=== PATIENT | female | born 1935 | race Caucasian/White ===

== ENCOUNTER 2022-02-19 20:25 | Inpatient (IN) | payer MEDICARE, OTHER ==
[~2022-02-19] VITALS: Ht 162.6 cm; Wt 59.0 kg
--- NOTE | 2022-02-19 19:15 | NUR ---
Pt received via stretcher from [facility]. Pt is having blood tranfusing which begin infusing at [facility] for a hgb of 6.8. Pt is on 3L oxygen. Pt denies sob and chest pain. Pt received Rocephin and Zithromax IV at [facility]. Pt transferred to bed.
--- NOTE | 2022-02-19 19:30 | NUR ---
Transfusion of 1 unit of prbc that was initiated and started at [facility] is completed without any s/s of complications.
[2022-02-19 19:33] VITALS: BP 129/69
[~2022-02-19 20:25] MED LIST: ACLI400A2 IH; ALPR0.5T6 PO; AMLO10TA4 PO; ARFO15VI NEB; BUDE0.5A NEB; CLON0.2T PO; ENAL20TA10 PO; HYDR12.575 PO; PARO20TA3 PO
[2022-02-19 20:30] VITALS: BP 105/62
--- NOTE | 2022-02-19 22:39 | NUR ---
Nurse notified MD regarding patients troponin of 2008. pt previous troponin from [facility] was 1679. Pt has no sob and no chest pain. N/O routine cardiology consult.
[2022-02-19 23:30] VITALS: BP 131/79
[2022-02-20] MEDS ORDERED: BUME1TAB3 PO (02:30)
[2022-02-20 02:32] LABS: BASO % 0 % (0-3); EOS # 0.3 x10^3/uL (0.0-0.7); EOS % 3 % (0-3); HEMOGLOBIN 7.8 g/dL (12.0-15.5); LYMPH # 1.2 x10^3/uL (1.0-4.8); LYMPH % 13 % (24-48); MEAN CORPUSCULAR HEMOGLOBIN 22 pg (25-35); MEAN CORPUSCULAR HGB CONC 31 g/dL (31-37); MEAN CORPUSCULAR VOLUME 70 fL (79-100); MONO # 0.8 x10^3/uL (0.0-1.1); MONO % 9 % (0-9); NEUT % 76 % (31-73); PLATELET COUNT 461 x10^3/uL (140-400); RED BLOOD COUNT 3.55 x10^6/uL (3.50-5.40); RED CELL DISTRIBUTION WIDTH 18.8 % (11.5-14.5); WHITE BLOOD COUNT 9.2 x10^3/uL (4.0-11.0)
[2022-02-20] MEDS ORDERED: DILT120T PO (02:34)
[2022-02-20] MEDS ORDERED: CITA20TA9 PO (02:36)
[2022-02-20] MEDS ORDERED: DOCU100C28 PO (02:42)
[2022-02-20] MEDS ORDERED: LOSA-73 PO (02:43)
[2022-02-20] MEDS ORDERED: BISA10SU55 RC (02:44)
[2022-02-20] MEDS ORDERED: MAGN400O7 PO (02:46)
[2022-02-20 02:50] LABS: ALBUMIN 2.7 g/dL (3.4-5.0); ALBUMIN/GLOBULIN RATIO 0.8 (1.0-1.7); CALCIUM 8.5 mg/dL (8.5-10.1); CREATININE 1.2 mg/dL (0.6-1.0); GFR 42.8; POTASSIUM 4.4 mmol/L (3.5-5.1); TOTAL BILIRUBIN 0.4 mg/dL (0.2-1.0); TOTAL PROTEIN 5.9 g/dL (6.4-8.2)
[2022-02-20] MEDS ORDERED: POTA10TA12 PO (02:52)
[2022-02-20] MEDS ORDERED: OMEP40CA7 PO (02:54)
[2022-02-20] MEDS ORDERED: FERR240T11 PO (03:05)
[2022-02-20 03:06] LABS: ANISOCYTOSIS SLIGHT; HYPOCHROMIA MOD; MICROCYTOSIS MOD; PLT ESTIMATE ADEQUATE (ADEQUATE)
[2022-02-20 03:30] VITALS: BP 152/85
[2022-02-20] MEDS ORDERED: PRED20TA PO (06:42)
[2022-02-20] MEDS ORDERED: MAGNESIUM HYDROXIDE 2,400 MG/30 ML ORAL.SUSP. PO PRN (06:45)
[2022-02-20] MEDS ORDERED: BISACODYL 10 MG SUPP.RECT. RC PRN (06:45)
[2022-02-20] MEDS ORDERED: BUDESONIDE 0.5 MG/2 ML NEBU. NEB PRN (06:45)
[2022-02-20 07:00] VITALS: BP 140/86
[2022-02-20] MEDS ORDERED: BUDESONIDE 0.5 MG/2 ML NEBU. NEB SCH (08:00)
[2022-02-20] MEDS: DOCUSATE SODIUM 100 MG CAPSULE. PO SCH ×2 (08:06→21:01)
[2022-02-20] MEDS: POTASSIUM CHLORIDE 10 MEQ TABLET.ER. PO SCH ×2 (08:06→21:01)
[2022-02-20] MEDS: FERROUS SULFATE 325 MG TABLET. PO SCH (08:06)
[2022-02-20] MEDS: PANTOPRAZOLE 40 MG TABLET.DR. PO SCH (08:06)
[2022-02-20] MEDS: CITALOPRAM 20 MG TABLET. PO SCH (08:06)
[2022-02-20] MEDS: BUMETANIDE 1 MG TABLET. PO SCH (08:07)
[2022-02-20] MEDS: predniSONE 20 MG TABLET PO SCH (08:07)
[2022-02-20] MEDS: LOSARTAN POTASSIUM 50 MG TABLET. PO SCH (08:08)
[2022-02-20] MEDS ORDERED: DIGOXIN IV 500 MCG/2 ML AMPUL. IV ONE ×2 (09:00→11:15)
[2022-02-20] MEDS ORDERED: MAGNESIUM HYDROXIDE 2,400 MG/30 ML ORAL.SUSP. PO SCH (09:00)
[2022-02-20] MEDS ORDERED: BISACODYL 10 MG SUPP.RECT. RC SCH (09:00)
[2022-02-20] MEDS ORDERED: ALPRAZolam 0.5 MG TABLET PO SCH (09:00)
[2022-02-20] MEDS: AZITHROMYCIN 250 MG TABLET. PO SCH (10:24)
[2022-02-20] MEDS: cefTRIAXone IV Push 1 GM VIAL. IVP SCH (10:24)
--- NOTE | 2022-02-20 10:35 | PN ---
DATE: 02/20/2022 SUBJECTIVE: The patient is an 86-year-old female patient who was seen at the Emergency Room of [facility] with a complaint of worsening shortness of breath. She was found to be anemic with a hemoglobin of 6.8. Furthermore, her troponin was markedly elevated and has left lower lobe infiltrate. She was started on IV ceftriaxone and Zithromax and she has had 1 unit of packed RBCs. When I saw her this morning, she was resting slightly propped up in bed, in no apparent respiratory distress. She continued to complain of shortness of breath, but again denied any chest pain. Denied any cough, phlegm or hemoptysis. PHYSICAL EXAMINATION: GENERAL: When I examined her this morning, she was pale, not jaundiced or cyanosed, no lymphadenopathy, no thyromegaly, no jugular venous distention. Mild bilateral lower limb edema. VITAL SIGNS: Her heart rate was 92, blood pressure was 140/86, temperature was 97.7, respiratory rate 22, and oxygen saturation was 96% on 3 liters of oxygen. HEAD, EYES, EARS, NOSE, AND THROAT: Normocephalic, atraumatic. NECK: Supple. HEART: Showed normal first and second heart sounds. No gallop or murmur. CHEST: Clear to auscultation. No crepitation or rhonchi. ABDOMEN: Distended, soft, nontender. NEUROLOGIC: She was grossly intact. LABORATORY DATA: This morning showed a white cell count of 9.2, hemoglobin 7.8, hematocrit 25, MCV 70 and platelet count of 161,000 with normal manual differential. Her chemistry showed she has 2 more sets of troponin I high sensitivity that were 2008 and 2160. Her serum sodium was 133, potassium 4.4, chloride 99, bicarbonate 32, anion gap of 2, BUN 27, creatinine 1.2. Estimated GFR was 42 mL per minute. Her glucose was 84, calcium was 8.5. Total bilirubin, AST, ALT, alkaline phosphatase were normal. Her total protein 5.9, albumin 3.7. ASSESSMENT: 1. In summary, this is an 86-year-old female patient who was admitted with anemia. Her hemoglobin and hematocrit at [facility] Emergency Room were 6.8 and 23. She did receive 1 unit of packed RBCs and her H and H has risen to 7.8 and 25. 2. Non-ST segment elevation myocardial infarction. Her initial troponin at [facility] were 1679, second one was 1481, third was 2009 and fourth was 2161; however, her EKG showed that she was in atrial fibrillation with no ST segment elevation. The patient was also treated for left lower lobe pneumonia. She has multiple other medical problems including: A. Chronic obstructive pulmonary disease. B. Chronic hypoxic respiratory failure, on 3 liters of oxygen. C. Chronic diastolic congestive heart failure. D. Pulmonary hypertension. E. Paroxysmal atrial fibrillation. F. Oropharyngeal dysphagia. PLAN: My plan is to continue with IV antibiotic in the form of ceftriaxone and Zithromax. We will continue with reconciled all her medications and we have consulted the chaplain. Her troponin I high sensitivity is steadily rising, although the patient is chest pain free. BRIGITTE DR: Cami TID: [id number]
--- NOTE | 2022-02-20 10:50 | HP ---
DATE OF SERVICE: 02/20/2022 ADMIT DATE: 02/19/2022 HISTORY OF PRESENT ILLNESS: The patient is an 86-year-old female patient who presented to the Emergency Room of [facility] with worsening shortness of breath that has been going on for the last several days. The patient is known to have history of congestive heart failure and peripheral edema. The patient thinks that her swelling of the legs has worsened, although she is on diuretics. She is normally on 3 liters of oxygen by nasal cannula; however, requirement has increased to 4 liters. When she arrived to the Emergency Room, she denied any cough, phlegm or hemoptysis. Denied any chills, rigors or fever. She denied specifically chest pain. The patient was extensively investigated in the Emergency Room and has had lab work and imaging studies. Her lab work was remarkable for anemia with a hemoglobin of 6.8, hematocrit 23. Her chemistry was remarkable for markedly elevated beta natriuretic peptide 3492. Her troponin I high sensitivity was 1679 and therefore, the patient was transferred. She has received 1 unit of packed RBCs and was transferred to [facility] for further evaluation and treatment. Of note, the patient was on hospice and has not been seen by any doctor for the last year. PAST MEDICAL HISTORY: Significant for chronic obstructive pulmonary disease, chronic hypoxic respiratory failure for which she is normally on 3 liters of oxygen by nasal cannula. She has also chronic diastolic congestive heart failure, pulmonary hypertension, paroxysmal atrial fibrillation, oropharyngeal dysphagia, hypertensive heart disease, anxiety disorder, and dependence on supplemental oxygen. PAST SURGICAL HISTORY: Unremarkable. ALLERGIES: She has no known drug allergies. MEDICATIONS: She is currently on the following medications: She is on diltiazem hydrochloride extended release 120 mg once a day, losartan potassium 50 mg once a day, aspirin 81 mg once a day, citalopram hydrobromide 10 mg once a day, alprazolam 0.5 mg twice a day, potassium chloride 10 mEq twice a day, bumetanide 1 mg daily, Pulmicort 0.25 mg in 2 mL by nebulizer twice a day, bisacodyl 10 mg rectally daily p.r.n. for constipation, Colace 100 mg twice a day, magnesium hydroxide for milk of magnesia 30 mL p.o. daily p.r.n. for constipation, ondansetron 4 mg every 6 hours as needed, omeprazole 20 mg once a day, multivitamin with mineral 1 tablet once a day. FAMILY HISTORY: Noncontributory. SOCIAL HISTORY: She lives actually with her son; however, one of her daughters is DPOA. She does not smoke, drink alcohol or recreational drugs. She has 2 daughters and 1 son. One of her daughters is a DPOA. REVIEW OF SYSTEMS: The patient denied any blurring of vision, cataracts, glaucoma or macular degeneration. Denied any earache, tinnitus or sensory deafness. Denied any nosebleed, stuffy nose or postnasal drip. Denied any sore throat, sore tongue, toothache, hoarseness of voice or difficulty swallowing. She denied any nausea, vomiting, diarrhea or constipation. Denied any hematemesis, melena or hematochezia. Denied any dysuria, frequency or hematuria. She denied any chest pain. Did complain of shortness of breath. Denied any orthopnea or paroxysmal nocturnal dyspnea. Did complain of swelling of both lower extremities. PHYSICAL EXAMINATION: GENERAL: On arrival to the Emergency Room of [facility], the patient was pale, not jaundiced, cyanosed, no lymphadenopathy, no thyromegaly, no jugular venous distention. No lower limb edema. VITAL SIGNS: Her heart rate was 90, irregularly irregular, blood pressure was 128/82, temperature was 98.6, respiratory rate was 18 and oxygen saturation was 96% on 3 liters of oxygen. HEAD, EYES, EARS, NOSE, AND THROAT: Normocephalic, atraumatic. NECK: Supple. HEART: Normal first and second heart sounds. No gallop, rub or murmur. CHEST: Shows central trachea, equally reduced expansion. Air entry, vesicular breath sounds. I could not really appreciate any crepitation or rhonchi. ABDOMEN: Distended, soft, nontender. NEUROLOGIC: She is somewhat confused, but otherwise all her cranial nerves are intact. She moves extremities without difficulty. LABORATORY DATA: Showed a serum sodium 138, potassium 4.7, chloride 100, bicarbonate 37, anion gap of 1, BUN 27, creatinine 1, estimated GFR was 52 mL per minute. Her glucose was 107. Her calcium was 9. Total bilirubin, AST, ALT, alkaline phosphatase were normal. Her first set of troponin I high sensitivity was 1679. Beta natriuretic peptide was 3492. Total protein 5.7, albumin 3. She did have a chest x-ray, which basically showed that she has small bilateral pleural effusion, patchy left basilar opacity, may represent atelectasis or consolidation. ASSESSMENT AND PLAN: The patient was treated with IV ceftriaxone as well as Zithromax and was transferred to [facility] with a plan to continue with IV antibiotic type and cross and transfuse 1 unit of packed RBCs. Continue with all other medication and consult the pipe coverer. Of note, the patient is not on any nonsteroidal anti-inflammatory medications or any blood thinner. MCKAY DR: Cami TID: [id number]
[2022-02-20 11:00] VITALS: BP 152/69
[2022-02-20] MEDS: ALPRAZolam 0.5 MG TABLET PO PRN (11:03)
--- NOTE | 2022-02-20 12:04 | EKG ---
[facility] [address] [place] [address] Test Date: 2022-02-20 Test Time: 11:57:54 Pat Name: KATHERINE VIZCARRA Department: Room: 4 1 Gender: F Slate Roofer: : 1935 Requested By: AHMET PHAN Order Number: [id number] Reading MD: Shawn Sheikh Measurements Intervals [place] Rate: 105 P: AK: QRS: 46 QRSD: 76 T: 3 QT: 276 QTc: 368 Interpretive Statements ATRIAL FIBRILLATION VENTRICULAR PREMATURE COMPLEX(ES) MILD NON SPECIFIC ST CHANGES Electronically Signed On 02-24-2022 17:38:29 CDT by Shawn Sheikh
[2022-02-20 15:00] VITALS: BP 147/71
--- NOTE | 2022-02-20 15:56 | PDOC2 ---
CONSULT Date of Consult Date of Consult DATE: 02/20/22 TIME: 15:49 Reason for Consult Reason for Consult: Non-ST elevated myocardial infarction Referring Physician Referring Physician: Dr. Smith Identification/Chief Complaint Chief Complaint Shortness of breath Source Source: Chart review, Patient History of Present Illness Reason for Visit: The patient is an 86-year-old female who presented to the [place] emergency room with increasing shortness of breath over 2 to 3 days. She has an extensive medical history including heart failure, COPD with home oxygen and paroxysmal atrial fibrillation. Significant lab findings included an elevated troponin at 1679, a hemoglobin of 6.8 and a BNP of 3492. Patient's EKG showed no findings of an acute infarction. Chest x-ray showed left-sided pneumonia. She was treated with 1 unit of packed RBCs and has been transferred to [place] for further evaluation and treatment. Of note she was not placed on any anticoagulation secondary to her significant anemia. This morning she reports feeling better. She continues to have some shortness of breath. She denies any chest pain. Past Medical History Cardiovascular: AFIB, CHF, HTN, Pulmonary hypertension Pulmonary: COPD, Pneumonia Past Surgical History Past Surgical History: No pertinent history Family History Family History: Other Social History No ALCOHOL: none Current Medications Current Medications Current Medications Alprazolam (Xanax) 0.5 mg BID PO ; Start 02/20/22 at 09:00; Stop 02/20/22 at 06:47; Status DC Bisacodyl (Dulcolax Supp) 10 mg DAILY RC ; Start 02/20/22 at 09:00; Stop 02/20/22 at 06:47; Status DC Budesonide (Pulmicort) 0.25 mg RTBID NEB ; Start 02/20/22 at 08:00; Stop 02/20/22 at 06:47; Status DC Bumetanide (Bumex) 0.5 mg DAILY PO Last administered on 02/20/22at 08:07; Start 02/20/22 at 09:00 Citalopram Hydrobromide (CeleXA) 20 mg DAILY PO Last administered on 02/20/22at 08:06; Start 02/20/22 at 09:00 Docusate Sodium (Colace) 100 mg BID PO Last administered on 02/20/22at 08:06; Start 02/20/22 at 09:00 Losartan Potassium (Cozaar) 50 mg DAILY PO Last administered on 02/20/22 08:08 ; Start 02/20/22 at 09:00 Magnesium Hydroxide (Milk Of Magnesia) 400 mg BID PO ; Start 02/20/22 at 09:00; Stop 02/20/22 at 06:47; Status DC Potassium Chloride (Klor-Con) 10 meq BID PO Last administered on 02/20/22at 08:06; Start 02/20/22 at 09:00 Diltiazem HCl (Cardizem 24hr Cd) 120 mg DAILY PO Last administered on 02/20/22at 08:06; Start 02/20/22 at 09:00 Ferrous Sulfate (Feosol) 325 mg DAILYWBKFT PO Last administered on 02/20/22at 08:06; Start 02/20/22 at 08:00 Pantoprazole Sodium (Protonix) 40 mg DAILYAC PO Last administered on 02/20/22 08:06; Start 02/20/22 at 07:30 Prednisone (Prednisone) 20 mg DAILY PO Last administered on 02/20/22at 08:07; Start 02/20/22 at 09:00 Alprazolam (Xanax) 0.5 mg PRN BID PRN PO ANXIETY / AGITATION Last administered on 02/20/22at 11:03; Start 02/20/22 at 06:45 Bisacodyl (Dulcolax Supp) 10 mg PRN DAILY PRN RC BLADDER SPASM; Start 02/20/22 at 06:45 Budesonide (Pulmicort) 0.25 mg PRN BID PRN NEB ANXIETY / AGITATION; Start 02/20/22 at 06:45 Magnesium Hydroxide (Milk Of Magnesia) 400 mg PRN BID PRN PO CONSTIPATION; Start 02/20/22 at 06:45 Digoxin (Lanoxin) 250 mcg 1X ONCE IV Last administered on 02/20/22at 08:57; Start 02/20/22 at 09:00; Stop 02/20/22 at 09:02; Status DC Ceftriaxone Sodium (Rocephin) 1 gm DAILY IVP Last administered on 02/20/22at 10:24; Start 02/20/22 at 10:00 Azithromycin (Zithromax) 250 mg DAILY PO Last administered on 02/20/22at 10:24; Start 02/20/22 at 10:00; Stop 02/23/22 at 09:01 Digoxin (Lanoxin) 250 mcg 1X ONCE IV Last administered on 02/20/22at 11:22; Start 02/20/22 at 11:15; Stop 02/20/22 at 11:16; Status DC Lactobacillus Rhamnosus (Culturelle) 1 cap BID PO ; Start 02/20/22 at 21:00 Active Scripts Active Reported Prednisone 20 Mg Tablet 1 Tab PO DAILY Iron (Ferrous Gluconate) 240 Mg Tablet 1 Tab PO DAILY 30 Days Omeprazole 40 Mg Capsule.dr 40 Mg PO DAILY Klor-Con 10 (Potassium Chloride) 10 Meq Tablet.er 10 Meq PO BID Milk Of Magnesia (Magnesium Hydroxide) 400 Mg/5 Ml Oral.susp 400 Mg PO BID PRN Dulcolax (Bisacodyl) 10 Mg Supp.rect 1 Supp RC DAILY Losartan Potassium 50 Mg Tablet 50 Mg PO DAILY Docusate Sodium 100 Mg Capsule 100 Mg PO BID Celexa (Citalopram Hydrobromide) 20 Mg Tablet 1 Tab PO DAILY Cardizem La (Diltiazem Hcl) 120 Mg Tab.er.24h 120 Mg PO DAILY Bumetanide 1 Mg Tablet 0.5 Tab PO DAILY Budesonide 0.5 Mg/2 Ml Ampul.neb 1 Vial NEB BID PRN Alprazolam 0.5 Mg Tablet 1 Tab PO BID PRN Allergies Allergies: Coded Allergies: No Known Drug Allergies (Unverified , 12/05/14) ROS General: YES: Fatigue Respiratory: YES: Shortness of breath, SOB with excertion Physical Exam General: mild distress Lungs: Other (Mildly decreased breath sounds) Heart: Other (Irregularly irregular) Abdomen: Normal bowel sounds Vitals VITALS Vital Signs Date Time Temp Pulse Resp B/P (MAP) Pulse Ox O2 Delivery O2 Flow Rate FiO2 02/20/22 15:00 97.6 80 20 147/71 (96) 95 Nasal Cannula 3.0 97.6 Labs Labs Laboratory Tests Test 02/19/22 22:00 02/20/22 02:00 02/20/22 14:50 Troponin I High Sensitivity 2009 ng/L (4-50) 2161 ng/L (4-50) White Blood Count 9.2 x10^3/uL (4.0-11.0) Red Blood Count 3.55 x10^6/uL (3.50-5.40) Hemoglobin 7.8 g/dL (12.0-15.5) 8.6 g/dL (12.0-15.5) Hematocrit 25.0 % (36.0-47.0) Mean Corpuscular Volume 70 fL (79-100) Mean Corpuscular Hemoglobin 22 pg (25-35) Mean Corpuscular Hemoglobin Concent 31 g/dL (31-37) Red Cell Distribution Width 18.8 % (11.5-14.5) Platelet Count 461 x10^3/uL (140-400) Neutrophils (%) (Auto) 76 % (31-73) Lymphocytes (%) (Auto) 13 % (24-48) Monocytes (%) (Auto) 9 % (0-9) Eosinophils (%) (Auto) 3 % (0-3) Basophils (%) (Auto) 0 % (0-3) Neutrophils # (Auto) 7.0 x10^3/uL (1.8-7.7) Lymphocytes # (Auto) 1.2 x10^3/uL (1.0-4.8) Monocytes # (Auto) 0.8 x10^3/uL (0.0-1.1) Eosinophils # (Auto) 0.3 x10^3/uL (0.0-0.7) Basophils # (Auto) 0.0 x10^3/uL (0.0-0.2) Platelet Estimate Adequate (ADEQUATE) Hypochromasia Mod Anisocytosis Slight Microcytosis Mod Sodium Level 133 mmol/L (136-145) Potassium Level 4.4 mmol/L (3.5-5.1) Chloride Level 99 mmol/L (98-107) Carbon Dioxide Level 32 mmol/L (21-32) Anion Gap 2 (6-14) Blood Urea Nitrogen 27 mg/dL (7-20) Creatinine 1.2 mg/dL (0.6-1.0) Estimated GFR (Cockcroft-Gault) 42.8 BUN/Creatinine Ratio 23 (6-20) Glucose Level 84 mg/dL (70-99) Calcium Level 8.5 mg/dL (8.5-10.1) Total Bilirubin 0.4 mg/dL (0.2-1.0) Aspartate Amino Transf (AST/SGOT) 17 U/L (15-37) Alanine Aminotransferase (ALT/SGPT) 19 U/L (14-59) Alkaline Phosphatase 48 U/L (46-116) Total Protein 5.9 g/dL (6.4-8.2) Albumin 2.7 g/dL (3.4-5.0) Albumin/Globulin Ratio 0.8 (1.0-1.7) Laboratory Tests Test 02/19/22 22:00 02/20/22 02:00 02/20/22 14:50 Troponin I High Sensitivity 2009 ng/L (4-50) 2161 ng/L (4-50) White Blood Count 9.2 x10^3/uL (4.0-11.0) Red Blood Count 3.55 x10^6/uL (3.50-5.40) Hemoglobin 7.8 g/dL (12.0-15.5) 8.6 g/dL (12.0-15.5) Hematocrit 25.0 % (36.0-47.0) Mean Corpuscular Volume 70 fL (79-100) Mean Corpuscular Hemoglobin 22 pg (25-35) Mean Corpuscular Hemoglobin Concent 31 g/dL (31-37) Red Cell Distribution Width 18.8 % (11.5-14.5) Platelet Count 461 x10^3/uL (140-400) Neutrophils (%) (Auto) 76 % (31-73) Lymphocytes (%) (Auto) 13 % (24-48) Monocytes (%) (Auto) 9 % (0-9) Eosinophils (%) (Auto) 3 % (0-3) Basophils (%) (Auto) 0 % (0-3) Neutrophils # (Auto) 7.0 x10^3/uL (1.8-7.7) Lymphocytes # (Auto) 1.2 x10^3/uL (1.0-4.8) Monocytes # (Auto) 0.8 x10^3/uL (0.0-1.1) Eosinophils # (Auto) 0.3 x10^3/uL (0.0-0.7) Basophils # (Auto) 0.0 x10^3/uL (0.0-0.2) Platelet Estimate Adequate (ADEQUATE) Hypochromasia Mod Anisocytosis Slight Microcytosis Mod Sodium Level 133 mmol/L (136-145) Potassium Level 4.4 mmol/L (3.5-5.1) Chloride Level 99 mmol/L (98-107) Carbon Dioxide Level 32 mmol/L (21-32) Anion Gap 2 (6-14) Blood Urea Nitrogen 27 mg/dL (7-20) Creatinine 1.2 mg/dL (0.6-1.0) Estimated GFR (Cockcroft-Gault) 42.8 BUN/Creatinine Ratio 23 (6-20) Glucose Level 84 mg/dL (70-99) Calcium Level 8.5 mg/dL (8.5-10.1) Total Bilirubin 0.4 mg/dL (0.2-1.0) Aspartate Amino Transf (AST/SGOT) 17 U/L (15-37) Alanine Aminotransferase (ALT/SGPT) 19 U/L (14-59) Alkaline Phosphatase 48 U/L (46-116) Total Protein 5.9 g/dL (6.4-8.2) Albumin 2.7 g/dL (3.4-5.0) Albumin/Globulin Ratio 0.8 (1.0-1.7) Images Images Chest x-ray with left side pneumonia. Assessment/Plan Assessment/Plan 1. Acute on chronic respiratory failure. History of significant COPD with home oxygen as well as new onset pneumonia. Patient has been started on antibiotics and pulmonary medications. We will continue close monitoring. 2. Non-ST elevated myocardial infarction. Troponin has peaked at 2161. No acute ischemic changes on EKG. No use of anticoagulation secondary to the patient's anemia. We will continue present medications and check an echocardiogram. 3. Anemia. Initial hemoglobin of 6.8 which is improved post transfusion. We will continue monitoring. 4. Reported pulmonary hypertension. Contributors #1 as above. We will check an echocardiogram. 5. History of paroxysmal atrial fibrillation. Now in atrial fibrillation. Rate is under reasonable control. We will continue to monitor. No anticoagulation secondary the patient's anemia as above. Thank you for allowing us to participate in the care of your patient. DANIEL SCHAEFFER MD Feb 20, 2022 15:56
[2022-02-20] MEDS: MAG HYDROX/ALUMINUM HYD/SIMETH 30 ML ORAL.SUSP PO PRN (18:35)
[2022-02-20 19:55] VITALS: BP 135/71
[2022-02-20] MEDS: LACTOBACILLUS RHAMNOSUS GG 1 CAPSULE. PO SCH (21:01)
[2022-02-20 22:42] VITALS: BP 141/72
[2022-02-21 02:51] VITALS: BP 148/73
[2022-02-21 04:26] LABS: BASO % 0 % (0-3); EOS # 0.1 x10^3/uL (0.0-0.7); EOS % 1 % (0-3); HEMATOCRIT 26.3 % (36.0-47.0); HEMOGLOBIN 8.1 g/dL (12.0-15.5); LYMPH # 0.9 x10^3/uL (1.0-4.8); LYMPH % 10 % (24-48); MEAN CORPUSCULAR HEMOGLOBIN 22 pg (25-35); MEAN CORPUSCULAR HGB CONC 31 g/dL (31-37); MEAN CORPUSCULAR VOLUME 70 fL (79-100); MONO # 0.8 x10^3/uL (0.0-1.1); MONO % 8 % (0-9); NEUT # 7.7 x10^3/uL (1.8-7.7); NEUT % 81 % (31-73); PLATELET COUNT 486 x10^3/uL (140-400); RED BLOOD COUNT 3.74 x10^6/uL (3.50-5.40); RED CELL DISTRIBUTION WIDTH 18.7 % (11.5-14.5); WHITE BLOOD COUNT 9.6 x10^3/uL (4.0-11.0)
[2022-02-21 04:46] LABS: CALCIUM 8.8 mg/dL (8.5-10.1); CREATININE 0.9 mg/dL (0.6-1.0); GFR 59.7; POTASSIUM 4.6 mmol/L (3.5-5.1)
[2022-02-21 07:00] VITALS: BP 152/71
[2022-02-21] MEDS: DOCUSATE SODIUM 100 MG CAPSULE. PO SCH ×2 (07:02→20:48)
[2022-02-21] MEDS: CITALOPRAM 20 MG TABLET. PO SCH (07:26)
[2022-02-21] MEDS: PANTOPRAZOLE 40 MG TABLET.DR. PO SCH (07:26)
[2022-02-21] MEDS: LOSARTAN POTASSIUM 50 MG TABLET. PO SCH (07:26)
[2022-02-21] MEDS: LACTOBACILLUS RHAMNOSUS GG 1 CAPSULE. PO SCH ×2 (07:26→20:47)
[2022-02-21] MEDS: predniSONE 20 MG TABLET PO SCH (07:26)
[2022-02-21] MEDS: POTASSIUM CHLORIDE 10 MEQ TABLET.ER. PO SCH ×2 (07:26→20:48)
[2022-02-21] MEDS: FERROUS SULFATE 325 MG TABLET. PO SCH (07:26)
[2022-02-21] MEDS: BUMETANIDE 1 MG TABLET. PO SCH (07:26)
[2022-02-21] MEDS: cefTRIAXone IV Push 1 GM VIAL. IVP SCH (07:27)
[2022-02-21] MEDS: AZITHROMYCIN 250 MG TABLET. PO SCH (07:27)
[2022-02-21 10:32] VITALS: BP 150/80
[2022-02-21] MEDS ORDERED: IRON SUCROSE COMPLEX 200 MG in IV NORMAL SALINE 100ML 100 ML IV ONE (11:00)
--- NOTE | 2022-02-21 11:18 | PN ---
DATE: 02/21/2022 SUBJECTIVE: The patient is resting, slightly propped up in bed, in no apparent distress. She is awake, alert, pleasantly confused. On questioning her, she denied any chest pain. Denied any cough, phlegm or hemoptysis. She presented with worsening shortness of breath, was found to have anemia with a hemoglobin that was down to 6.8 from a baseline of 9.5 last year. She was found also to have left lower lobe infiltrate and non-ST segment elevation with markedly elevated troponin with no ischemic changes on EKG. She was not started on heparin, given that she has blood loss anemia. Her family wanted further investigation of why she is anemic and from where she is losing blood. I did iron studies and her serum iron was only 10. TIBC was high at 328, iron saturation was only 3 and serum ferritin was only 36. Her troponin has peaked up to 2161, however, EKG showed that she was in atrial fibrillation, rate controlled. PHYSICAL EXAMINATION: GENERAL: When I examined her today, she looked pale, not jaundiced or cyanosed, no lymphadenopathy, no thyromegaly, no jugular venous distention. No lower limb edema. VITAL SIGNS: Her heart rate was 80, blood pressure 148/73, temperature was 97.9, respiratory rate was 18 and oxygen saturation was 95% on 3 liters of oxygen. HEAD, EYES, EARS, NOSE, AND THROAT: Normocephalic, atraumatic. NECK: Supple. HEART: Showed normal first and second heart sounds. No gallop, rub or murmur. CHEST: Showed central trachea, equal bilateral expansion, air entry, vesicular breath sounds. I could not really appreciate any crepitation or rhonchi anteriorly. She does have few bilateral basal crepitation mostly on the left side, a few scattered rhonchi. ABDOMEN: Scaphoid, soft, nontender. NEUROLOGIC: She is demented without any obvious lateralizing sign. Her intake over the last 24 hours and output are incompletely recorded. LABORATORY DATA: Her lab work this morning showed her white cell count was 9.6, hemoglobin 8.1, hematocrit 26, MCV 70 and platelet count 486,000 with normal manual differential. Her chemistry this morning showed a serum sodium 138, potassium 4.6, chloride 101, bicarbonate 36, anion gap of 1, BUN 25, creatinine 0.9. Estimated GFR was 59 mL per minute. Her glucose was 98, calcium was 8.8. Serum iron was 10, TIBC was 328 and iron saturation was only 3% and serum ferritin was 36. ASSESSMENT: In summary, this is an 86-year-old female patient who was admitted with: 1. Anemia with a hemoglobin of 6.8 and hematocrit 23, for which she received 1 unit of packed RBCs. Her hemoglobin and hematocrit has risen, her hemoglobin went up to 8.6 and this morning, her hemoglobin is 8.1, hematocrit 26. 2. Her iron studies are consistent with severe iron deficiency anemia, non-ST segment elevation myocardial infarction. Her troponin has peaked to 2161. Her EKG showed that she was in atrial fibrillation with no evidence of any ST segment elevation. 3. Left lower lobe pneumonia for which she is on IV antibiotic. 4. The patient has multiple other medical problems including: A. Chronic obstructive pulmonary disease. B. Chronic hypoxic respiratory failure, on 3 liters of oxygen. C. Chronic diastolic congestive heart failure. D. Pulmonary hypertension. E. Paroxysmal atrial fibrillation. F. Oropharyngeal dysphagia. PLAN: My plan is to continue to monitor her H and H and transfuse her as needed. I will start her on Venofer as she has severe iron deficiency anemia. I have consulted the cattle alley worker for further evaluation and treatment. It is worth noting that the patient was actually on hospice; however, the family now wanted aggressive investigation as to what the cause of her bleeding. MCKAY WANG: Cami TID: [id number]
[2022-02-21] MEDS: MAG HYDROX/ALUMINUM HYD/SIMETH 30 ML ORAL.SUSP PO PRN (12:20)
--- NOTE | 2022-02-21 13:29 | PDOC2 ---
GI CONSULT Date of Service: DATE: 02/21/22 TIME: 13:16 Reason For Consult: DIMITRY HPI: HPI: 86 y/oi female admitted from [facility] where presented with SOA and signs of CHF. Noted to be anemia and iron deficient; has iron listed as home med, so suspect not new. Family says only on iron for 2 weeks. Somewhat sketchy historian, but denies any overt bleeding. To my knowledge never colonoscopy. Has had multiple EGD's for GERD-related issues. On PPI chronically. No true dysphagia, but will occasionally choke on food and felt to have some degree of OP dysphagia. No PUD. S/p see. No liver or pancreatic history. No tobacco or alcohol use currently. No real diarrhea or constipation. Occasional lower abdominal discomfort which improves after stooling. PMH: PMH: COPD, CHF, HTN, pAfib, pulmonary HTN, anxiety, O2-dependent. S/p see, hyster, appy, mastectomy for right breast cancer. FH: Family History: No pertinent hx Social History: Smoke: No ALCOHOL: none Drugs: None ROS: GEN: Denies fevers, chills, sweats HEENT: Denies blurred vision, sore throat CV: Denies chest pain RESP: Some shortness of air, no cough GI: Per HPI : Denies hematuria, dysuria ENDO: Denies weight changes NEURO: Denies confusion, dizziness MSK: Denies weakness, joint pain/swelling SKIN: Denies jaundice, pruritus Vitals: Vitals: Vital Signs Date Time Temp Pulse Resp B/P (MAP) Pulse Ox O2 Delivery O2 Flow Rate FiO2 02/21/22 12:39 86 167/90 02/21/22 10:32 98.9 18 94 Nasal Cannula 3.0 98.9 Labs: Labs: Laboratory Tests Test 02/20/22 14:50 02/21/22 04:00 Hemoglobin 8.6 g/dL (12.0-15.5) 8.1 g/dL (12.0-15.5) Troponin I High Sensitivity 1940 ng/L (4-50) White Blood Count 9.6 x10^3/uL (4.0-11.0) Red Blood Count 3.74 x10^6/uL (3.50-5.40) Hematocrit 26.3 % (36.0-47.0) Mean Corpuscular Volume 70 fL (79-100) Mean Corpuscular Hemoglobin 22 pg (25-35) Mean Corpuscular Hemoglobin Concent 31 g/dL (31-37) Red Cell Distribution Width 18.7 % (11.5-14.5) Platelet Count 486 x10^3/uL (140-400) Neutrophils (%) (Auto) 81 % (31-73) Lymphocytes (%) (Auto) 10 % (24-48) Monocytes (%) (Auto) 8 % (0-9) Eosinophils (%) (Auto) 1 % (0-3) Basophils (%) (Auto) 0 % (0-3) Neutrophils # (Auto) 7.7 x10^3/uL (1.8-7.7) Lymphocytes # (Auto) 0.9 x10^3/uL (1.0-4.8) Monocytes # (Auto) 0.8 x10^3/uL (0.0-1.1) Eosinophils # (Auto) 0.1 x10^3/uL (0.0-0.7) Basophils # (Auto) 0.0 x10^3/uL (0.0-0.2) Sodium Level 138 mmol/L (136-145) Potassium Level 4.6 mmol/L (3.5-5.1) Chloride Level 101 mmol/L (98-107) Carbon Dioxide Level 36 mmol/L (21-32) Anion Gap 1 (6-14) Blood Urea Nitrogen 25 mg/dL (7-20) Creatinine 0.9 mg/dL (0.6-1.0) Estimated GFR (Cockcroft-Gault) 59.7 Glucose Level 98 mg/dL (70-99) Calcium Level 8.8 mg/dL (8.5-10.1) Iron Level 10 ug/dL (50-170) Total Iron Binding Capacity 328 ug/dL (250-450) Iron Saturation 3 % (15-34) Ferritin 36 ng/mL (8-252) Allergies: Coded Allergies: No Known Drug Allergies (Unverified , 12/05/14) Medications: Current Medications Medications (Trade) Dose Ordered Sig/Eloina Route PRN Reason Start Time Stop Time Status Last Admin Dose Admin Lactobacillus Rhamnosus (Culturelle) 1 cap BID PO 02/20/22 21:00 02/21/22 07:26 Al Hydroxide/Mg Hydroxide (Mylanta Plus Xs) 30 ml PRN Q4HRS PRN PO HEARTBURN / GAS 02/20/22 18:30 02/21/22 12:20 Iron Sucrose 200 mg/Sodium Chloride 110 ml @ 55 mls/hr 1X ONCE IV 02/21/22 11:00 02/21/22 12:59 DC 02/21/22 10:52 Amlodipine Besylate (Norvasc) 5 mg 1X ONCE PO 02/21/22 12:30 02/21/22 12:33 DC 02/21/22 12:39 PE: GEN: NAD HEENT: Atraumatic, PERRLA LUNGS: CTAB HEART: IRRR c/w afib, no murmurs ABD: NABS, S/ND/NT, no masses EXTREMITY: No edema SKIN: No rashes, no jaundice NEURO/PSYCH: A & O 3 A/P: A/P: IMP: DIMITRY, cause uncertain. Plenty of EGD's so not likely UGI source. Never has had colonoscopy, but currently not a candidate now and maybe never if returns to hospice. Surgical risk would be high. GERD S/P see. REC: Treat presenting issues. Continue PPI. Transfuse prn. If only on iron once daily at home, consider increasing to 2-3 times daily. Could consider colonoscopy, but not clear this would modify therapy. MEKA MARTINEZ MD Feb 21, 2022 13:29
--- NOTE | 2022-02-21 14:12 | PDOC ---
PROGRESS NOTES Date of Service DATE: 02/21/22 TIME: 14:09 Subjective Subjective Patient seen and examined Objective Objective Vital Signs Date Time Temp Pulse Resp B/P (MAP) Pulse Ox O2 Delivery O2 Flow Rate FiO2 02/21/22 12:39 86 167/90 02/21/22 10:32 98.9 18 94 Nasal Cannula 3.0 98.9 Intake and Output 02/21/22 07:00 Intake Total 60 ml Output Total 1330 ml Balance -1270 ml Intake Oral 60 ml Output Urine Total 1330 ml Physical Exam Abdomen: Normal bowel sounds Heart: Regular rate General: mild distress Lungs: Other (Slightly decreased breath sounds) Assessment Assessment 1. Acute on chronic respiratory failure. History of significant COPD with home oxygen as well as new onset pneumonia. Patient has been started on antibiotics and pulmonary medications. She is feeling mildly better today. We will continue present treatment. 2. Non-ST elevated myocardial infarction. Troponin has peaked at 2161. No acute ischemic changes on EKG. No use of anticoagulation secondary to the patient's anemia. We will continue present medications. Echo pending. 3. Anemia. Initial hemoglobin of 6.8 which is improved post transfusion. Morning H&H of 8.1 and 26.3. Being evaluated by the GI service. 4. Reported pulmonary hypertension. Contributors #1 as above. Echo as above. 5. History of paroxysmal atrial fibrillation. Now in atrial fibrillation. Rate is under reasonable control. We will continue to monitor. No anticoagulation secondary the patient's anemia as above. Comment Review of Relevant I have reviewed the following items israel (where applicable) has been applied. Labs Laboratory Tests Test 02/19/22 22:00 02/20/22 02:00 02/20/22 14:50 02/21/22 04:00 Troponin I High Sensitivity 2009 ng/L (4-50) 2161 ng/L (4-50) 1940 ng/L (4-50) White Blood Count 9.2 x10^3/uL (4.0-11.0) 9.6 x10^3/uL (4.0-11.0) Red Blood Count 3.55 x10^6/uL (3.50-5.40) 3.74 x10^6/uL (3.50-5.40) Hemoglobin 7.8 g/dL (12.0-15.5) 8.6 g/dL (12.0-15.5) 8.1 g/dL (12.0-15.5) Hematocrit 25.0 % (36.0-47.0) 26.3 % (36.0-47.0) Mean Corpuscular Volume 70 fL (79-100) 70 fL (79-100) Mean Corpuscular Hemoglobin 22 pg (25-35) 22 pg (25-35) Mean Corpuscular Hemoglobin Concent 31 g/dL (31-37) 31 g/dL (31-37) Red Cell Distribution Width 18.8 % (11.5-14.5) 18.7 % (11.5-14.5) Platelet Count 461 x10^3/uL (140-400) 486 x10^3/uL (140-400) Neutrophils (%) (Auto) 76 % (31-73) 81 % (31-73) Lymphocytes (%) (Auto) 13 % (24-48) 10 % (24-48) Monocytes (%) (Auto) 9 % (0-9) 8 % (0-9) Eosinophils (%) (Auto) 3 % (0-3) 1 % (0-3) Basophils (%) (Auto) 0 % (0-3) 0 % (0-3) Neutrophils # (Auto) 7.0 x10^3/uL (1.8-7.7) 7.7 x10^3/uL (1.8-7.7) Lymphocytes # (Auto) 1.2 x10^3/uL (1.0-4.8) 0.9 x10^3/uL (1.0-4.8) Monocytes # (Auto) 0.8 x10^3/uL (0.0-1.1) 0.8 x10^3/uL (0.0-1.1) Eosinophils # (Auto) 0.3 x10^3/uL (0.0-0.7) 0.1 x10^3/uL (0.0-0.7) Basophils # (Auto) 0.0 x10^3/uL (0.0-0.2) 0.0 x10^3/uL (0.0-0.2) Platelet Estimate Adequate (ADEQUATE) Hypochromasia Mod Anisocytosis Slight Microcytosis Mod Sodium Level 133 mmol/L (136-145) 138 mmol/L (136-145) Potassium Level 4.4 mmol/L (3.5-5.1) 4.6 mmol/L (3.5-5.1) Chloride Level 99 mmol/L (98-107) 101 mmol/L (98-107) Carbon Dioxide Level 32 mmol/L (21-32) 36 mmol/L (21-32) Anion Gap 2 (6-14) 1 (6-14) Blood Urea Nitrogen 27 mg/dL (7-20) 25 mg/dL (7-20) Creatinine 1.2 mg/dL (0.6-1.0) 0.9 mg/dL (0.6-1.0) Estimated GFR (Cockcroft-Gault) 42.8 59.7 BUN/Creatinine Ratio 23 (6-20) Glucose Level 84 mg/dL (70-99) 98 mg/dL (70-99) Calcium Level 8.5 mg/dL (8.5-10.1) 8.8 mg/dL (8.5-10.1) Total Bilirubin 0.4 mg/dL (0.2-1.0) Aspartate Amino Transf (AST/SGOT) 17 U/L (15-37) Alanine Aminotransferase (ALT/SGPT) 19 U/L (14-59) Alkaline Phosphatase 48 U/L (46-116) Total Protein 5.9 g/dL (6.4-8.2) Albumin 2.7 g/dL (3.4-5.0) Albumin/Globulin Ratio 0.8 (1.0-1.7) Iron Level 10 ug/dL (50-170) Total Iron Binding Capacity 328 ug/dL (250-450) Iron Saturation 3 % (15-34) Ferritin 36 ng/mL (8-252) Laboratory Tests Test 02/20/22 14:50 02/21/22 04:00 Hemoglobin 8.6 g/dL (12.0-15.5) 8.1 g/dL (12.0-15.5) Troponin I High Sensitivity 1940 ng/L (4-50) White Blood Count 9.6 x10^3/uL (4.0-11.0) Red Blood Count 3.74 x10^6/uL (3.50-5.40) Hematocrit 26.3 % (36.0-47.0) Mean Corpuscular Volume 70 fL (79-100) Mean Corpuscular Hemoglobin 22 pg (25-35) Mean Corpuscular Hemoglobin Concent 31 g/dL (31-37) Red Cell Distribution Width 18.7 % (11.5-14.5) Platelet Count 486 x10^3/uL (140-400) Neutrophils (%) (Auto) 81 % (31-73) Lymphocytes (%) (Auto) 10 % (24-48) Monocytes (%) (Auto) 8 % (0-9) Eosinophils (%) (Auto) 1 % (0-3) Basophils (%) (Auto) 0 % (0-3) Neutrophils # (Auto) 7.7 x10^3/uL (1.8-7.7) Lymphocytes # (Auto) 0.9 x10^3/uL (1.0-4.8) Monocytes # (Auto) 0.8 x10^3/uL (0.0-1.1) Eosinophils # (Auto) 0.1 x10^3/uL (0.0-0.7) Basophils # (Auto) 0.0 x10^3/uL (0.0-0.2) Sodium Level 138 mmol/L (136-145) Potassium Level 4.6 mmol/L (3.5-5.1) Chloride Level 101 mmol/L (98-107) Carbon Dioxide Level 36 mmol/L (21-32) Anion Gap 1 (6-14) Blood Urea Nitrogen 25 mg/dL (7-20) Creatinine 0.9 mg/dL (0.6-1.0) Estimated GFR (Cockcroft-Gault) 59.7 Glucose Level 98 mg/dL (70-99) Calcium Level 8.8 mg/dL (8.5-10.1) Iron Level 10 ug/dL (50-170) Total Iron Binding Capacity 328 ug/dL (250-450) Iron Saturation 3 % (15-34) Ferritin 36 ng/mL (8-252) Medications Current Medications Alprazolam (Xanax) 0.5 mg BID PO ; Start 02/20/22 at 09:00; Stop 02/20/22 at 06:47; Status DC Bisacodyl (Dulcolax Supp) 10 mg DAILY RC ; Start 02/20/22 at 09:00; Stop 02/20/22 at 06:47; Status DC Budesonide (Pulmicort) 0.25 mg RTBID NEB ; Start 02/20/22 at 08:00; Stop 02/20/22 at 06:47; Status DC Bumetanide (Bumex) 0.5 mg DAILY PO Last administered on 02/21/22 07:26; Start 02/20/22 at 09:00 Citalopram Hydrobromide (CeleXA) 20 mg DAILY PO Last administered on 02/21/22 07:26; Start 02/20/22 at 09:00 Docusate Sodium (Colace) 100 mg BID PO Last administered on 02/20/22at 21:01; Start 02/20/22 at 09:00 Losartan Potassium (Cozaar) 50 mg DAILY PO Last administered on 02/21/22 07:26; Start 02/20/22 at 09:00 Magnesium Hydroxide (Milk Of Magnesia) 400 mg BID PO ; Start 02/20/22 at 09:00; Stop 02/20/22 at 06:47; Status DC Potassium Chloride (Klor-Con) 10 meq BID PO Last administered on 02/21/22 07:26; Start 02/20/22 at 09:00 Diltiazem HCl (Cardizem 24hr Cd) 120 mg DAILY PO Last administered on 02/21/22at 07:27; Start 02/20/22 at 09:00 Ferrous Sulfate (Feosol) 325 mg DAILYWBKFT PO Last administered on 02/21/22 07:26; Start 02/20/22 at 08:00 Pantoprazole Sodium (Protonix) 40 mg DAILYAC PO Last administered on 02/21/22 07:26; Start 02/20/22 at 07:30 Prednisone (Prednisone) 20 mg DAILY PO Last administered on 02/21/22 07:26; Start 02/20/22 at 09:00 Alprazolam (Xanax) 0.5 mg PRN BID PRN PO ANXIETY / AGITATION Last administered on 02/20/22at 11:03; Start 02/20/22 at 06:45 Bisacodyl (Dulcolax Supp) 10 mg PRN DAILY PRN RC BLADDER SPASM; Start 02/20/22 at 06:45 Budesonide (Pulmicort) 0.25 mg PRN BID PRN NEB ANXIETY / AGITATION Last administered on 02/21/22at 04:40; Start 02/20/22 at 06:45 Magnesium Hydroxide (Milk Of Magnesia) 400 mg PRN BID PRN PO CONSTIPATION; Start 02/20/22 at 06:45 Digoxin (Lanoxin) 250 mcg 1X ONCE IV Last administered on 02/20/22at 08:57; Start 02/20/22 at 09:00; Stop 02/20/22 at 09:02; Status DC Ceftriaxone Sodium (Rocephin) 1 gm DAILY IVP Last administered on 02/21/22at 07:27; Start 02/20/22 at 10:00 Azithromycin (Zithromax) 250 mg DAILY PO Last administered on 02/21/22at 07:27; Start 02/20/22 at 10:00; Stop 02/23/22 at 09:01 Digoxin (Lanoxin) 250 mcg 1X ONCE IV Last administered on 02/20/22at 11:22; Start 02/20/22 at 11:15; Stop 02/20/22 at 11:16; Status DC Lactobacillus Rhamnosus (Culturelle) 1 cap BID PO Last administered on 02/21/22at 07:26; Start 02/20/22 at 21:00 Al Hydroxide/Mg Hydroxide (Mylanta Plus Xs) 30 ml PRN Q4HRS PRN PO HEARTBURN / GAS Last administered on 02/21/22at 12:20; Start 02/20/22 at 18:30 Iron Sucrose 200 mg/Sodium Chloride 110 ml @ 55 mls/hr 1X ONCE IV Last administered on 02/21/22at 10:52; Start 02/21/22 at 11:00; Stop 02/21/22 at 12:59; Status DC Amlodipine Besylate (Norvasc) 5 mg 1X ONCE PO Last administered on 02/21/22at 12:39; Start 02/21/22 at 12:30; Stop 02/21/22 at 12:33; Status DC Active Scripts Active Reported Prednisone 20 Mg Tablet 1 Tab PO DAILY Iron (Ferrous Gluconate) 240 Mg Tablet 1 Tab PO DAILY 30 Days Omeprazole 40 Mg Capsule.dr 40 Mg PO DAILY Klor-Con 10 (Potassium Chloride) 10 Meq Tablet.er 10 Meq PO BID Milk Of Magnesia (Magnesium Hydroxide) 400 Mg/5 Ml Oral.susp 400 Mg PO BID PRN Dulcolax (Bisacodyl) 10 Mg Supp.rect 1 Supp RC DAILY Losartan Potassium 50 Mg Tablet 50 Mg PO DAILY Docusate Sodium 100 Mg Capsule 100 Mg PO BID Celexa (Citalopram Hydrobromide) 20 Mg Tablet 1 Tab PO DAILY Cardizem La (Diltiazem Hcl) 120 Mg Tab.er.24h 120 Mg PO DAILY Bumetanide 1 Mg Tablet 0.5 Tab PO DAILY Budesonide 0.5 Mg/2 Ml Ampul.neb 1 Vial NEB BID PRN Alprazolam 0.5 Mg Tablet 1 Tab PO BID PRN Vitals/I & O Vital Sign - Last 24 Hours 02/20/22 02/20/22 02/20/22 02/20/22 15:00 19:55 20:00 22:42 Temp 97.6 98.3 98.0 97.6 98.3 98.0 Pulse 80 81 80 Resp 20 18 16 B/P (MAP) 147/71 (96) 135/71 (92) 141/72 (95) Pulse Ox 95 96 93 O2 Delivery Nasal Cannula Nasal Cannula Nasal Cannula Nasal Cannula O2 Flow Rate 3.0 3.0 3.0 3.0 02/21/22 02/21/22 02/21/22 02/21/22 02:51 04:41 07:00 07:26 Temp 98.3 97.9 98.3 97.9 Pulse 80 81 80 Resp 16 18 B/P (MAP) 148/73 (98) 152/71 (98) 148/73 Pulse Ox 93 93 95 O2 Delivery Nasal Cannula Nasal Cannula Nasal Cannula O2 Flow Rate 3.0 3.0 3.0 02/21/22 02/21/22 02/21/22 02/21/22 07:27 08:00 10:32 12:39 Temp 98.9 98.9 Pulse 80 86 86 Resp 18 B/P (MAP) 148/73 150/80 (103) 167/90 Pulse Ox 94 O2 Delivery Nasal Cannula Nasal Cannula O2 Flow Rate 3.0 3.0 Intake and Output 02/20/22 02/20/22 02/21/22 15:00 23:00 07:00 Intake Total 60 ml 0 ml Output Total 330 ml 700 ml 300 ml Balance -330 ml -640 ml -300 ml Justifications for Admission Other Justification DANIEL SCHAEFFER MD Feb 21, 2022 14:12
[2022-02-21 15:00] VITALS: BP 166/77
--- NOTE | 2022-02-21 15:43 | CARD ---
MR#: [id number] Date of Study: 02/21/2022 Ordering Physician: DANIEL SHEIKH, Referring Physician: DANIEL SHEIKH, Tech: Sosa Soria [facility] APPROVED REPORT EXAM: Two-dimensional and M-mode echocardiogram with Doppler and color Doppler. Other Information Quality : Technically LimitedHR: 77bpm INDICATION Pulmonary Hypertention Congestive Heart Failure 2D DIMENSIONS Left Atrium(2D)4.2 (1.6-4.0cm)IVSd1.1 (0.7-1.1cm) Aortic Root(2D)3.5 (2.0-3.7cm)LVDd4.4 (3.9-5.9cm) LVOT Diameter2.4 (1.8-2.4cm)PWd1.0 (0.7-1.1cm) LVDs3.0 (2.5-4.0cm)FS (%) 32.5 % SV54.9 ml Aortic Valve AoV Peak Leonard.141.2cm/Solomon Peak GR.8.0mmHg TDI Lateral E' P. V13.52cm/sMedial E' P. V9.27cm/s Tricuspid Valve TR P. [id number] Peak Gr.48mmHg LEFT VENTRICLE The left ventricle is normal size. There is borderline concentric left ventricular hypertrophy. The l eft ventricular systolic function is normal. LV ejection fraction is 55 to 60%. There is normal LV se gmental wall motion. RIGHT VENTRICLE The right ventricle is borderline dilated. There is normal right ventricular wall thickness. The righ t ventricular systolic function is normal. ATRIA The left atrium is mild to moderately dilated. The right atrium is mild to moderately dilated. The in teratrial septum is intact with no evidence for an atrial septal defect or patent foramen ovale as no michelle on 2-D or Doppler imaging. AORTIC VALVE The aortic valve is normal in structure and function. Doppler and Color Flow revealed no significant aortic regurgitation. There is no significant aortic valvular stenosis. MITRAL VALVE The mitral valve is normal in structure and function. There is no evidence of mitral valve prolapse. There is no mitral valve stenosis. Doppler and Color-flow revealed mild mitral regurgitation. TRICUSPID VALVE The tricuspid valve is normal in structure and function. Doppler and Color Flow revealed mild to mode rate tricuspid regurgitation. Estimated PAP 55 mmHg. There is no tricuspid valve stenosis. PULMONIC VALVE The pulmonary valve is normal in structure and function. Doppler and Color Flow revealed mild pulmoni c valvular regurgitation. GREAT VESSELS The aortic root is normal in size. The ascending aorta is normal in size. The IVC is normal in size a nd collapses <50% with inspiration. PERICARDIAL EFFUSION There is no evidence of significant pericardial effusion. Critical Notification Critical Value: No <Conclusion> The left ventricle is normal size. The left ventricular systolic function is normal. LV ejection fraction is 55 to 60%. There is borderline concentric left ventricular hypertrophy. Doppler and Color Flow revealed no significant aortic regurgitation. There is no significant aortic valvular stenosis. Doppler and Color-flow revealed mild mitral regurgitation. Doppler and Color Flow revealed mild to moderate tricuspid regurgitation. Estimated PAP 55 mmHg. Signed by : Daniel Sheikh MD Electronically Approved : 02/21/2022 15:43:00
[2022-02-21 19:07] VITALS: BP 161/74
[2022-02-21 22:52] VITALS: BP 162/83
[2022-02-22 02:39] VITALS: BP 156/78
[2022-02-22 04:40] LABS: HEMATOCRIT 26.8 % (36.0-47.0); HEMOGLOBIN 8.1 g/dL (12.0-15.5); RED BLOOD COUNT 3.81 x10^6/uL (3.50-5.40); WHITE BLOOD COUNT 9.2 x10^3/uL (4.0-11.0)
[2022-02-22 04:50] LABS: BLOOD UREA NITROGEN 19 mg/dL (7-20); CALCIUM 8.7 mg/dL (8.5-10.1); CARBON DIOXIDE 39 mmol/L (21-32); CHLORIDE 99 mmol/L (98-107); CREATININE 0.8 mg/dL (0.6-1.0); GFR 68.3; GLUCOSE 81 mg/dL (70-99); POTASSIUM 4.6 mmol/L (3.5-5.1); SODIUM 135 mmol/L (136-145)
[2022-02-22 07:00] VITALS: BP 186/86
[2022-02-22] MEDS: POTASSIUM CHLORIDE 10 MEQ TABLET.ER. PO SCH ×2 (08:01→20:22)
[2022-02-22] MEDS: predniSONE 20 MG TABLET PO SCH (08:01)
[2022-02-22] MEDS: LACTOBACILLUS RHAMNOSUS GG 1 CAPSULE. PO SCH ×2 (08:01→20:22)
[2022-02-22] MEDS: FERROUS SULFATE 325 MG TABLET. PO SCH (08:01)
[2022-02-22] MEDS: AZITHROMYCIN 250 MG TABLET. PO SCH (08:01)
[2022-02-22] MEDS: CITALOPRAM 20 MG TABLET. PO SCH (08:02)
[2022-02-22] MEDS: DOCUSATE SODIUM 100 MG CAPSULE. PO SCH ×2 (08:02→20:22)
[2022-02-22] MEDS: LOSARTAN POTASSIUM 50 MG TABLET. PO SCH (08:02)
[2022-02-22] MEDS: BUMETANIDE 1 MG TABLET. PO SCH (08:02)
[2022-02-22] MEDS: PANTOPRAZOLE 40 MG TABLET.DR. PO SCH (08:02)
[2022-02-22] MEDS: cefTRIAXone IV Push 1 GM VIAL. IVP SCH (08:03)
[2022-02-22] MEDS: ALPRAZolam 0.5 MG TABLET PO PRN ×2 (08:04→20:28)
[2022-02-22] MEDS: MAG HYDROX/ALUMINUM HYD/SIMETH 30 ML ORAL.SUSP PO PRN (08:04)
--- NOTE | 2022-02-22 10:14 | PDOC ---
Date of Service: DATE: 02/22/22 TIME: 10:07 Subjective: Subjective: Feeling okay. Does mention "just some botherin'" in upper abdomen. Can't really elaborate. Denies bleeding. Objective: Vital Signs: Vital Signs Date Time Temp Pulse Resp B/P (MAP) Pulse Ox O2 Delivery O2 Flow Rate FiO2 02/22/22 08:02 65 186/86 02/22/22 07:00 97.7 18 98 Nasal Cannula 3.0 97.7 Labs: Laboratory Tests Test 02/21/22 16:15 02/22/22 03:00 Hemoglobin 8.9 g/dL 8.1 g/dL White Blood Count 9.2 x10^3/uL Red Blood Count 3.81 x10^6/uL Hematocrit 26.8 % Mean Corpuscular Volume 70 fL Mean Corpuscular Hemoglobin 21 pg Mean Corpuscular Hemoglobin Concent 30 g/dL Red Cell Distribution Width 19.0 % Platelet Count 501 x10^3/uL Sodium Level 135 mmol/L Potassium Level 4.6 mmol/L Chloride Level 99 mmol/L Carbon Dioxide Level 39 mmol/L Anion Gap Blood Urea Nitrogen 19 mg/dL Creatinine 0.8 mg/dL Estimated GFR (Cockcroft-Gault) 68.3 Glucose Level 81 mg/dL Calcium Level 8.7 mg/dL Thyroid Stimulating Hormone (TSH) 1.676 uIU/mL Imaging: MANUFACTURING ACCOUNTANT Bedside Swallow Eval: Pt demo's functional oropharyngeal swallow. No overt s/s aspiration noted during this evaluation with thin liquids, honey thick liquids, puree, and solids. However, pt's COPD diagnosis does increase risk for aspiration d/t possibility of discoordination in timing of breathing vs swallowing. Pt has loose fitting lower denture which may interfere with safe mastication of solids, though was not an issue during eval. See full report in Interventions. RECOMMENDATIONS: Diet as tolerated (per pt & DPOA preference) and continue thin liquids. Sit fully upright for all PO intake. Cleared for up to regular diet texture with small (tsp size) bites. Per discussion w/ RN, pt's dtr/DPOA's preference is likely c/w Dysphagia II ([facility] soft) diet. RN to discuss w/ DPOA, as DPOA is not present currently. Outpt f/u w/ dental service for refitting of lower denture. Will continue MANUFACTURING ACCOUNTANT f/u 1-2 add'l visits. PE: GEN: NAD - breakfast tray 100% consumed, also note some candy wrappers LUNGS: diminished, NC 3L HEART: RRR ABD: NABS, S/ND/NT NEURO/PSYCH: forgetful A/P: DIMITRY - previous EGDs unrevealing, no previous colonoscopy NSTEMI, h/o A Fib - not on anti-coagulation 2/2 above Pneumonia H/o GERD -- Continue PPI, consider increasing iron to BID-TID. Not a good endoscopy candidate. Justicifation of Admission Dx: Justifications for Admission: Justification of Admission Dx: Yes ZHANG GONZALES Feb 22, 2022 10:14
--- NOTE | 2022-02-22 10:59 | PDOC ---
CARDIO Progress Notes Date and Time Date of Service 02/22/22 Time of Evaluation 1100 Subjective Subjective: No Chest Pain, No Palpitations, Other (not more SOA) Vitals Vitals Vital Signs Date Time Temp Pulse Resp B/P (MAP) Pulse Ox O2 Delivery O2 Flow Rate FiO2 02/22/22 08:02 65 186/86 02/22/22 08:00 Nasal Cannula 3.0 02/22/22 07:00 97.7 18 98 97.7 Weight Weight [ ] Input and Output Intake and Output Intake and Output 02/22/22 07:00 Intake Total 110 ml Output Total 2150 ml Balance -2040 ml Intake Oral 0 ml IV Total 110 ml Output Urine Total 2150 ml Laboratory Labs Laboratory Tests Test 02/21/22 16:15 02/22/22 03:00 Hemoglobin 8.9 g/dL (12.0-15.5) 8.1 g/dL (12.0-15.5) White Blood Count 9.2 x10^3/uL (4.0-11.0) Red Blood Count 3.81 x10^6/uL (3.50-5.40) Hematocrit 26.8 % (36.0-47.0) Mean Corpuscular Volume 70 fL (79-100) Mean Corpuscular Hemoglobin 21 pg (25-35) Mean Corpuscular Hemoglobin Concent 30 g/dL (31-37) Red Cell Distribution Width 19.0 % (11.5-14.5) Platelet Count 501 x10^3/uL (140-400) Sodium Level 135 mmol/L (136-145) Potassium Level 4.6 mmol/L (3.5-5.1) Chloride Level 99 mmol/L (98-107) Carbon Dioxide Level 39 mmol/L (21-32) Anion Gap (6-14) Blood Urea Nitrogen 19 mg/dL (7-20) Creatinine 0.8 mg/dL (0.6-1.0) Estimated GFR (Cockcroft-Gault) 68.3 Glucose Level 81 mg/dL (70-99) Calcium Level 8.7 mg/dL (8.5-10.1) Thyroid Stimulating Hormone (TSH) 1.676 uIU/mL (0.358-3.74) Physical Exam HEENT: Neck Supple W Full Motion Chest: Symmetric LUNGS: Other (diminished bases) Heart: irregularly irregular (AFIB with RVR) Abdomen: Soft N/T Extremities: No Edema Neurology: alert, oriented, follow commands Assessment Assessment 1. Acute on chronic respiratory failure; multifactorial with AE COPD, a/c CHF, anemia, and possible PNA 2. Acute on chronic probable diastolic CHF; Echo with LVEF 55-60% 3. NSTEMI; trop peak 2161. EKG without significant acute changes. Most probable type II, demand ischemia. Not on anticoagulation due to anemia. 4. PAFIB; presently AFIB with RVR. On oral Cardizem for rate control. 5. Anemia; s/p transfusion. GI following 6. PulmHTN; PAP 55 mmHG Recommendations Metoprolol IVP x1 now Increase Cardizem for better rate control Consider rhythm maintenance therapy No ASA or anticoagulation therapy due to anemia requiring transfusion Supportive care Justicifation of Admission Dx: Justifications for Admission: Justification of Admission Dx: Yes TIFFANI SHAFER APRN Feb 22, 2022 10:59
[2022-02-22 11:00] VITALS: BP 125/73
[2022-02-22] MEDS ORDERED: METOPROLOL IV PUSH 5 MG/5 ML VIAL. IVP ONE (11:00)
[2022-02-22] MEDS ORDERED: IRON SUCROSE COMPLEX 500 MG in IV NORMAL SALINE 250ML 250 ML IV ONE (14:00)
[2022-02-22 14:05] LABS: FECAL OB PT NEGATIVE (NEG)
[2022-02-22 15:00] VITALS: BP 128/59
[2022-02-22] MEDS: BUDESONIDE 0.5 MG/2 ML NEBU. NEB SCH ×2 (15:06→20:14)
--- NOTE | 2022-02-22 16:42 | NUR ---
SS following for discharge planning. SS reviewed pt chart and discussed with pt RN. Per family pt lives between son and daughters home and is currently requiring oxygen at three liters nasal canula. Pt has home oxygen. Pt on IV Rocephin. PO diet. PT/OT recommending nursing home unit. Pt's daughter reported that pt has had past services with [facility] but revoked services due to wanting aggressive medical care. PT/OT recommended nursing home unit. Pt's daughter reported that pt has had bad experiences in nursing home unit and she would need to discuss with family prior to making any decisions regarding rehabilitation. SS will continue to follow for discharge planning.
[2022-02-22 19:28] VITALS: BP 150/78
--- NOTE | 2022-02-22 21:03 | PN ---
DATE: 02/22/2022 SUBJECTIVE: The patient is sitting comfortably in her recliner in no apparent distress. On questioning her, she denied any chest pain. Denied any shortness of breath. Denied any cough, phlegm or hemoptysis. Denied any nausea, vomiting, diarrhea or constipation. Denied any hematemesis, melena or hematochezia. She has had her echocardiogram done yesterday and showed that her left ventricular size is normal, left ventricular systolic function is normal, ejection fraction is 55-60%. There is borderline concentric left ventricular hypertrophy. She has no significant aortic stenosis or aortic regurgitation. Mild mitral regurgitation and mild to moderate tricuspid regurgitation. Her estimated pulmonary artery pressure was 55 mmHg. She continued to have episodes of atrial fibrillation with rapid ventricular response. She has received IV metoprolol. She was seen in consultation by Dr. Humphreys and apparently she is not a candidate for colonoscopy given her age and comorbidities. PHYSICAL EXAMINATION: GENERAL: When I examined her this morning, she looked pale, not jaundiced or cyanosed, no thyromegaly. No jugular venous distention. No limb edema. VITAL SIGNS: Her heart rate was 85, blood pressure was 186/86, temperature 97.7, respiratory rate was 18 and oxygen saturation was 98% on 3 liters of oxygen. HEAD, EYES, EARS, NOSE, AND THROAT: Normocephalic, atraumatic. NECK: Supple. HEART: Showed normal first and second heart sounds. No gallop, rub or murmur. CHEST: Clear to auscultation, no crepitation or rhonchi. ABDOMEN: Distended, soft, nontender. NEUROLOGIC: She was demented, but without any obvious lateralizing sign. ASSESSMENT: 1. Anemia with hemoglobin 6.8 and hematocrit 23. She did receive 1 unit of packed RBCs and H and H remained stable. She was seen by Dr. Humphreys and he recommended to continue with proton pump inhibitor and increase her oral iron. She was very enthusiastic about doing colonoscopy, although she is willing to do with what the family wanted. 2. Left lower lobe pneumonia, for which she is on IV antibiotics. 3. Non-ST segment elevation myocardial infarction with normal EKG and normal left ventricular systolic function. She is not a candidate for anticoagulation. 4. The patient has multiple other medical problems including: A. Chronic obstructive pulmonary disease. B. Chronic hypoxic respiratory failure, on 3 liters of oxygen. C. Chronic diastolic congestive heart failure. D. Pulmonary hypertension. E. Paroxysmal atrial fibrillation. F. Oropharyngeal dysphagia. PLAN: Continue to monitor her H and H and transfuse her as needed. I will add another dose of Venofer and on discharge her tomorrow, hopefully she would be on 3 tablets of iron. DO DR: Cami TID: [id number]
[2022-02-22 23:04] VITALS: BP 149/74
[2022-02-23 02:33] VITALS: BP 147/77
--- NOTE | 2022-02-23 04:51 | NUR ---
Noted left arm with swelling/redness @ the start of shift during rounds. Attempted to aspirate IV site, no return. Left arm elevated on pillow, ice pack placed.
[2022-02-23] MEDS: PANTOPRAZOLE 40 MG TABLET.DR. PO SCH ×2 (06:05→17:37)
[2022-02-23 06:19] LABS: HEMATOCRIT 27.4 % (36.0-47.0); HEMOGLOBIN 8.1 g/dL (12.0-15.5); RED BLOOD COUNT 3.81 x10^6/uL (3.50-5.40); RED CELL DISTRIBUTION WIDTH 18.9 % (11.5-14.5); WHITE BLOOD COUNT 10.2 x10^3/uL (4.0-11.0)
[2022-02-23 06:44] LABS: ALBUMIN 2.5 g/dL (3.4-5.0); ALBUMIN/GLOBULIN RATIO 0.8 (1.0-1.7); CALCIUM 8.9 mg/dL (8.5-10.1); CREATININE 0.7 mg/dL (0.6-1.0); GFR 79.7; POTASSIUM 4.7 mmol/L (3.5-5.1); TOTAL BILIRUBIN 0.1 mg/dL (0.2-1.0); TOTAL PROTEIN 5.6 g/dL (6.4-8.2)
[2022-02-23 07:00] VITALS: BP 156/67
[2022-02-23] MEDS: BUDESONIDE 0.5 MG/2 ML NEBU. NEB SCH ×2 (07:22→20:16)
[2022-02-23] MEDS: CITALOPRAM 20 MG TABLET. PO SCH (08:42)
[2022-02-23] MEDS: LOSARTAN POTASSIUM 50 MG TABLET. PO SCH (08:42)
[2022-02-23] MEDS: AZITHROMYCIN 250 MG TABLET. PO SCH (08:43)
[2022-02-23] MEDS: predniSONE 20 MG TABLET PO SCH (08:43)
[2022-02-23] MEDS: DOCUSATE SODIUM 100 MG CAPSULE. PO SCH ×2 (08:43→21:45)
[2022-02-23] MEDS: LACTOBACILLUS RHAMNOSUS GG 1 CAPSULE. PO SCH ×2 (08:43→21:45)
[2022-02-23] MEDS: FERROUS SULFATE 325 MG TABLET. PO SCH (08:43)
[2022-02-23] MEDS: POTASSIUM CHLORIDE 10 MEQ TABLET.ER. PO SCH ×2 (08:43→21:45)
[2022-02-23] MEDS: cefTRIAXone IV Push 1 GM VIAL. IVP SCH (08:44)
[2022-02-23] MEDS: BUMETANIDE 1 MG TABLET. PO SCH (08:44)
--- NOTE | 2022-02-23 10:15 | CONS ---
DATE OF CONSULTATION: 02/23/2022 PULMONARY CONSULTATION ATTENDING PHYSICIAN: Sergio Smith MD REASON FOR CONSULTATION: Dyspnea, respiratory failure, pneumonia. HISTORY OF PRESENT ILLNESS: The patient is an 86-year-old female who has a history of COPD. She has a history of chronic hypoxic respiratory failure. She is on 3 liters at home on a 24-hour basis. She smoked for 30 years before quitting. The patient also has an echocardiogram, which showed an EF of 55-60%. There was mild mitral regurgitation, pulmonary artery pressure was 55. The patient also has a history of atrial fibrillation with rapid ventricular response. The patient was brought into the hospital with dyspnea and generalized weakness. She was noted to be anemic. Her hemoglobin is now staying in the low 8, latest being 8.1. She did receive transfusion. She denies any significant cough. No fever, no chills. No chest pains. No headaches, no nausea, vomiting or diarrhea. The patient had a chest x-ray on 02/19, which was reviewed by me. There is minimal blunting of the left costophrenic angle and small basal pleural effusions. A consultation requested for further evaluation and management. I have reviewed the patient's CT chest from 02/21/2021. At that time, she had evidence of pneumonia in the left lung. Consultation requested for further evaluation and management. PAST MEDICAL HISTORY: Significant for COPD. She is on home oxygen 3 liters. History of chronic diastolic congestive heart failure, history of secondary pulmonary hypertension, history of paroxysmal atrial fibrillation. She has dysphagia, hypertensive heart disease, anxiety disorder. PAST SURGICAL HISTORY: No recent surgeries. ALLERGIES: None. MEDICATIONS: All reviewed as listed in the [facility] including antibiotic, Rocephin, Bumex. Not on any bronchodilators yet. REVIEW OF SYSTEMS: Twelve-point review of system obtained. Pertinent positives discussed in my present illness, otherwise noncontributory. All systems that were negative were reviewed as well. SOCIAL HISTORY: Smoker for 30 years before quitting. PHYSICAL EXAMINATION: VITAL SIGNS: Reviewed. Blood pressure 156/67, pulse ox 96% on 3 liters, afebrile. NECK: Supple. LUNGS: With diminished breath sounds bilaterally. CARDIOVASCULAR: With a regular rate. ABDOMEN: Soft, nontender. EXTREMITIES: With some trace pitting edema. IMPRESSION: 1. Dyspnea secondary to multifactorial etiologies including underlying chronic obstructive pulmonary disease with chronic hypoxic respiratory failure, A/C Diastolic HF, and anemia. Clinically, less likely pneumonia. We will obtain noncontrast CT chest for better evaluation. 2. Non-ST segment myocardial infarction. 3. Secondary pulmonary hypertension. 4. Atrial fibrillation ,now with controlled rate. 5. Acute on Chronic diastolic congestive heart failure. 6. Oropharyngeal dysphagia. RECOMMENDATIONS: 1. Continue present oxygen, which is her baseline. 2. Obtain noncontrast CT chest to rule out any pneumonia/ effusions. 3. Continue empiric antibiotics. 4. Follow Cardiology recommendations for management of atrial fibrillation. 5. Add bronchodilators. 6. Continue diuresis. Discussed with the patient. We will follow along with you. XAVI DR: Zeinab TID: [id number] MTDArnaud
--- NOTE | 2022-02-23 10:39 | PDOC ---
TIFFANI SHAFER ASSOCIATE PROFESSOR OF PHYSICS 02/23/22 1039: CARDIO Progress Notes Date and Time Date of Service 02/23/22 Time of Evaluation 1030 Subjective Subjective: No Chest Pain, No Palpitations, Other (not feeling well today, difficulty having BM) Vitals Vitals Vital Signs Date Time Temp Pulse Resp B/P (MAP) Pulse Ox O2 Delivery O2 Flow Rate FiO2 02/23/22 08:42 97 156/67 02/23/22 08:00 Nasal Cannula 3.0 02/23/22 07:26 96 02/23/22 07:00 97.6 18 97.6 Weight Weight [ ] Input and Output Intake and Output Intake and Output 02/23/22 07:00 Intake Total 700 ml Output Total 1200 ml Balance -500 ml Intake Oral 700 ml Output Urine Total 1200 ml Laboratory Labs Laboratory Tests Test 02/22/22 13:10 02/22/22 17:01 02/23/22 05:00 Stool Occult Blood Negative (NEG) Hemoglobin 7.9 g/dL (12.0-15.5) 8.1 g/dL (12.0-15.5) White Blood Count 10.2 x10^3/uL (4.0-11.0) Red Blood Count 3.81 x10^6/uL (3.50-5.40) Hematocrit 27.4 % (36.0-47.0) Mean Corpuscular Volume 72 fL (79-100) Mean Corpuscular Hemoglobin 21 pg (25-35) Mean Corpuscular Hemoglobin Concent 30 g/dL (31-37) Red Cell Distribution Width 18.9 % (11.5-14.5) Platelet Count 500 x10^3/uL (140-400) Sodium Level 137 mmol/L (136-145) Potassium Level 4.7 mmol/L (3.5-5.1) Chloride Level 98 mmol/L (98-107) Carbon Dioxide Level 37 mmol/L (21-32) Anion Gap 2 (6-14) Blood Urea Nitrogen 16 mg/dL (7-20) Creatinine 0.7 mg/dL (0.6-1.0) Estimated GFR (Cockcroft-Gault) 79.7 BUN/Creatinine Ratio 23 (6-20) Glucose Level 73 mg/dL (70-99) Calcium Level 8.9 mg/dL (8.5-10.1) Total Bilirubin 0.1 mg/dL (0.2-1.0) Aspartate Amino Transf (AST/SGOT) 19 U/L (15-37) Alanine Aminotransferase (ALT/SGPT) 18 U/L (14-59) Alkaline Phosphatase 46 U/L (46-116) Total Protein 5.6 g/dL (6.4-8.2) Albumin 2.5 g/dL (3.4-5.0) Albumin/Globulin Ratio 0.8 (1.0-1.7) Physical Exam HEENT: Neck Supple W Full Motion Chest: Symmetric LUNGS: Other (diminished bases) Heart: RRR Abdomen: Soft N/T Extremities: No Edema Neurology: alert, oriented, follow commands Assessment Assessment 1. Acute on chronic respiratory failure; multifactorial with AE COPD, a/c CHF, anemia, and possible PNA 2. Acute on chronic probable diastolic CHF; Echo with LVEF 55-60% 3. NSTEMI; trop peak 2161. EKG without significant acute changes. Most probable type II, demand ischemia. CP free. Not on anticoagulation due to anemia. 4. PAFIB; converted back to SR 5. Anemia; s/p transfusion. GI following 6. PulmHTN; PAP 55 mmHG Recommendations Continue Cardizem for rate control Consider rhythm maintenance therapy if AFIB recurrent No anticoagulation therapy due to anemia requiring transfusion ASA therapy if okay with GI Outpatient ischemic evaluation Supportive care Justicifation of Admission Dx: Justifications for Admission: Justification of Admission Dx: Yes DANIEL SCHAEFFER MD 02/23/22 1832: CARDIO Progress Notes Assessment Assessment Patient seen and examined The patient is mildly more comfortable today. I agree with our nurse practitioners assessment and plan. Acute on chronic respiratory failure; multifactorial with AE COPD, a/c CHF, anemia, and possible PNA. Mildly improved. Acute on chronic probable diastolic CHF; Echo with LVEF 55-60% NSTEMI; trop peak 2161. EKG without significant acute changes. Most probable type II, demand ischemia. CP free. Not on anticoagulation due to anemia. Future outpatient ischemia evaluation. PAFIB; converted back to SR Anemia; s/p transfusion. GI following PulmHTN; PAP 55 mmHG TIFFANI SHAFER APRN Feb 23, 2022 10:39 DANIEL SCHAEFFER MD Feb 23, 2022 18:32
[2022-02-23 11:00] VITALS: BP 164/79
--- NOTE | 2022-02-23 11:17 | PDOC ---
Date of Service: DATE: 02/23/22 TIME: 11:15 Subjective: Subjective: "Getting the acid again." Blood pressure cuff hurts. Objective: Objective: No GI concerns per nurse. Hemoccult negative. Vital Signs: Vital Signs Date Time Temp Pulse Resp B/P (MAP) Pulse Ox O2 Delivery O2 Flow Rate FiO2 02/23/22 08:42 97 156/67 02/23/22 08:00 Nasal Cannula 3.0 02/23/22 07:26 96 02/23/22 07:00 97.6 18 97.6 Labs: Laboratory Tests Test 02/22/22 13:10 02/22/22 17:01 02/23/22 05:00 Stool Occult Blood Negative Hemoglobin 7.9 g/dL 8.1 g/dL White Blood Count 10.2 x10^3/uL Red Blood Count 3.81 x10^6/uL Hematocrit 27.4 % Mean Corpuscular Volume 72 fL Mean Corpuscular Hemoglobin 21 pg Mean Corpuscular Hemoglobin Concent 30 g/dL Red Cell Distribution Width 18.9 % Platelet Count 500 x10^3/uL Sodium Level 137 mmol/L Potassium Level 4.7 mmol/L Chloride Level 98 mmol/L Carbon Dioxide Level 37 mmol/L Anion Gap 2 Blood Urea Nitrogen 16 mg/dL Creatinine 0.7 mg/dL Estimated GFR (Cockcroft-Gault) 79.7 BUN/Creatinine Ratio 23 Glucose Level 73 mg/dL Calcium Level 8.9 mg/dL Total Bilirubin 0.1 mg/dL Aspartate Amino Transf (AST/SGOT) 19 U/L Alanine Aminotransferase (ALT/SGPT) 18 U/L Alkaline Phosphatase 46 U/L Total Protein 5.6 g/dL Albumin 2.5 g/dL Albumin/Globulin Ratio 0.8 Imaging: Chest CT pending PE: GEN: NAD LUNGS: diminished, NC 3L HEART: RRR ABD: S/ND/NT NEURO/PSYCH: forgetful A/P: DIMITRY - stable, Hemoccult negative and no obvious bleeding NSTEMI, A Fib, pneumonia GERD -- Continue PPI, antacid, iron. Justicifation of Admission Dx: Justifications for Admission: Justification of Admission Dx: Yes ZHANG GONZALES Feb 23, 2022 11:17
[2022-02-23] MEDS: IPRATRPIUM/ALBUTEROL 0.5/2.5MG 3 ML NEBU. NEB SCH ×3 (11:20→20:15)
--- NOTE | 2022-02-23 11:25 | NUR ---
SS following up with discharge planning. SS reviewed pt chart and discussed with pt RN. Pt is currently requiring oxygen at three liters nasal canula. PO diet. PT/OT recommended detention unit. SS contacted pt's daughter and discussed. Pt's daughter reported that at this time she is agreeable and requested referrals to [facility], ; fax [phone], [facility], ; fax [phone], and [facility], ; fax [phone]. COVID19 PCR requested for placement. Referrals sent as requested. Per Sandrine, at [facility], they are out of network with pt's insurance. Pt's daughter notified. SS will continue to follow for discharge planning. Addendum: 02/23/22 at 1553 by JUAN ZAMORA Pt accepted at [facility] pending insurance approval.
[2022-02-23] MEDS: MAG HYDROX/ALUMINUM HYD/SIMETH 30 ML ORAL.SUSP PO PRN ×2 (11:46→17:54)
--- NOTE | 2022-02-23 13:16 | RAD ---
CT chest without contrast PQRS statement: CT scans at this facility use dose reduction including either automated exposure cont rol, iterative reconstructions, and /or weight based radiation dosing via mA and kV modification when appropriate to reduce radiation dose to as low as reasonably achievable. HISTORY: Pneumonia. COMPARISON: CTA chest February 21, 2021 and chest x-ray February 19, 2022 FINDINGS: Tortuosity and extensive calcified plaque thoracic aorta. Ascending aorta diameter 3.5 cm. Extensive coronary calcified plaque. Mild cardiomegaly stable. Pulmonary vessels and esophagus are un remarkable. No enlarged adenopathy in the chest. Right breast absent. Very small right pleural effusi on thickness of less than 1 cm at the lower chest. Mild left pleural effusion thickness of 3 cm no lo wering meningitis. Pulmonary emphysema. There is near complete collapse of the left lower lobe with d ependent opacity with some residual aeration of the superior segment anteriorly where there is hetero geneous nodular opacities and groundglass density. [place] nodular densities at the right major fissur e posteriorly with fluid density of less than 10 units likely loculated pleural fluid this is new. Th ere are centrilobular nodules as well as nodular opacities largest measuring 9 mm at the posterior ri ght lower lobe image 33. IMPRESSION: 1. Mild-moderate left pleural effusion with collapse of most of the left lower lobe with dependent co nsolidated opacity, and mild heterogeneous opacities at the residually aerated superior segment, whic h could be extensive passive atelectasis from the pleural effusion versus lobar pneumonia. 2. Centrilobular nodules as well as nodular opacities measuring up to 9 mm of posterior right lower l obe are new. 3. Nodular fluid densities within the right major and minor fissures posteriorly likely loculated fis sural pleural fluid are new. 4. Pulmonary emphysema. 5. Follow-up CT chest imaging in 3 months is advised to document that the opacities and nodules resol ve to exclude the possibility of a neoplastic process. Electronically signed by: Ajay Leary MD (02/23/2022 1:14 PM) [facility]
[2022-02-23 14:23] VITALS: BP 150/73
[2022-02-23] MEDS ORDERED: FUROSEMIDE 40 MG/4 ML VIAL. IVP ONE (17:30)
[2022-02-23 19:00] VITALS: BP 143/76
[2022-02-23] MEDS: ALPRAZolam 0.5 MG TABLET PO PRN (21:45)
--- NOTE | 2022-02-23 22:02 | PN ---
DATE: 02/23/2022 SUBJECTIVE: The patient is resting, slightly propped up in bed, in no apparent respiratory distress. Awake, alert, pleasantly confused. Denied any chest pain, cough, phlegm or hemoptysis. Denied any shortness of breath, orthopnea or paroxysmal nocturnal dyspnea. She was seen in consultation by Dr. Hope yesterday and has had a CT scan of the chest without contrast that was not read yet by the radiologist. PHYSICAL EXAMINATION: GENERAL: When I examined her, she was pale. No jaundice, cyanosis, or thyromegaly. No jugular venous distention. No lower limb edema. VITAL SIGNS: Her heart rate was 62, blood pressure was 156/67, temperature was 97.6, respiratory rate was 18 and oxygen saturation was 96% on 3 liters of oxygen. HEAD, EYES, EARS, NOSE, AND THROAT: Showed normocephalic, atraumatic. NECK: Supple. HEART: Showed normal first and second heart sounds. No gallop or murmur. CHEST: Shows central trachea, equally reduced chest expansion, reduced air entry, vesicular breath sounds. I could not appreciate any crepitation or rhonchi. ABDOMEN: Distended, soft, nontender. NEUROLOGIC: She is demented without any obvious lateralizing sign. Her intake was incompletely recorded, output was 2150. LABORATORY DATA: As of this morning, her white cell count was 10.2, hemoglobin 8, hematocrit 27, MCV 72 and platelet count of 500. Serum sodium was 137, potassium 4.7, chloride 98, bicarbonate 37, anion gap of 2, BUN 16, creatinine 0.7. Estimated GFR was 79 mL per minute. Her glucose was 73, calcium was 8.9. Total bilirubin, AST, ALT, and alkaline phosphatase are normal. Total protein was 5.6, albumin was 2.5. Her TSH was 1.76. ASSESSMENT: 1. Anemia with hemoglobin of 6.8, hematocrit 23. The patient received 1 unit of packed RBCs and her H and H remained stable. She is now on proton pump inhibitor. Did receive a total of about 700 mg of Venofer and I did increase her ferrous sulfate to 325 mg twice a day. 2. Left lower lobe pneumonia, for which she is on IV antibiotic. 3. Non-ST segment elevation myocardial infarction with normal EKG, normal left ventricular systolic function. The patient has no chest pain and she is not a candidate for anticoagulation. 4. The patient has multiple other medical problems including: A. Chronic obstructive pulmonary disease. B. Chronic hypoxic respiratory failure, on 3 liters of oxygen. C. Chronic diastolic congestive heart failure, it is well compensated. D. Pulmonary hypertension. E. Paroxysmal atrial fibrillation, rate controlled. F. Oropharyngeal dysphagia. PLAN: To continue with all her current medication. If the family decided on her discharge plan, she can be discharged home with home health and/or to a care home facility. JENELLE DR: Cami TID: [id number]
[2022-02-23 23:54] VITALS: BP 155/77
[2022-02-24 03:09] VITALS: BP 147/69
[2022-02-24 07:00] VITALS: BP 136/61
[2022-02-24] MEDS: BUDESONIDE 0.5 MG/2 ML NEBU. NEB SCH ×2 (07:17→18:29)
[2022-02-24] MEDS: LACTOBACILLUS RHAMNOSUS GG 1 CAPSULE. PO SCH ×2 (08:23→20:47)
[2022-02-24] MEDS: LOSARTAN POTASSIUM 50 MG TABLET. PO SCH (08:26)
[2022-02-24] MEDS: FERROUS SULFATE 325 MG TABLET. PO SCH ×3 (08:26→17:49)
[2022-02-24] MEDS: POTASSIUM CHLORIDE 10 MEQ TABLET.ER. PO SCH ×2 (08:26→20:47)
[2022-02-24] MEDS: predniSONE 20 MG TABLET PO SCH (08:26)
[2022-02-24] MEDS: CITALOPRAM 20 MG TABLET. PO SCH (08:27)
[2022-02-24] MEDS: DOCUSATE SODIUM 100 MG CAPSULE. PO SCH ×2 (08:27→20:47)
[2022-02-24] MEDS: PANTOPRAZOLE 40 MG TABLET.DR. PO SCH ×2 (08:27→17:49)
[2022-02-24] MEDS: BUMETANIDE 1 MG TABLET. PO SCH (08:27)
[2022-02-24] MEDS: cefTRIAXone IV Push 1 GM VIAL. IVP SCH ×3 (08:27→13:22)
--- NOTE | 2022-02-24 10:11 | NUR ---
SS following up with discharge planning. SS reviewed pt chart and discussed with pt RN. Pt is currently requiring oxygen at three liters nasal canula. Pt on IV Rocephin. Pt has no home oxygen. COVID19 negative. PT/OT recommended penitentiary unit. Pt accepted at [facility], ; fax [phone], and [facility], ; fax [phone]. Updated PT/OT notes requested for insurance purposes. Pt's daughter notified and requested to speak with Dr. Smith to discuss medical concerns. Pt's RN notified. SS will continue to follow for discharge planning.
--- NOTE | 2022-02-24 10:25 | PDOC ---
Date of Service: DATE: 02/24/22 TIME: 10:21 Subjective: Subjective: Abdominal pain after eating - "I guess it's acid, I don't know what to call it." ----> she points to lower abdomen and epigastrium No vomiting. Hasn't stooled in a couple days. Objective: Vital Signs: Vital Signs Date Time Temp Pulse Resp B/P (MAP) Pulse Ox O2 Delivery O2 Flow Rate FiO2 02/24/22 08:26 80 136/61 02/24/22 07:17 98 Nasal Cannula 3.0 02/24/22 07:00 97.6 18 97.6 Labs: Laboratory Tests Test 02/23/22 11:30 Coronavirus (COVID-19)(PCR) Not detected PE: GEN: NAD - was asleep LUNGS: diminished, NC 3L HEART: RRR ABD: S/ND/NT NEURO/PSYCH: A & O 3 A/P: DIMITRY - stable, Hemoccult negative and no obvious bleeding - has had past EGDs, no plans for colonoscopy considering age and co-morbidities NSTEMI, A Fib, pneumonia GERD/dyspepsia, ?constipation -- Continue PPI BID, antacid PRN, iron. Try Miralax, Dulcolax. Justicifation of Admission Dx: Justifications for Admission: Justification of Admission Dx: Yes ZHANG GONZALES Feb 24, 2022 10:25
[2022-02-24] MEDS ORDERED: BISACODYL 5 MG TABLET.DR. PO ONE (10:30)
[2022-02-24] MEDS: POLYETHYLENE GLYCOL 3350 17 GM PACKET. PO SCH (10:30)
--- NOTE | 2022-02-24 10:32 | PDOC ---
TIFFANI SHAFER DRUG ABUSE WORKER 02/24/22 1032: CARDIO Progress Notes Date and Time Date of Service 02/24/22 Time of Evaluation 1030 Subjective Subjective: No Chest Pain, No Palpitations Vitals Vitals Vital Signs Date Time Temp Pulse Resp B/P (MAP) Pulse Ox O2 Delivery O2 Flow Rate FiO2 02/24/22 08:26 80 136/61 02/24/22 07:17 98 Nasal Cannula 3.0 02/24/22 07:00 97.6 18 97.6 Weight Weight [ ] Input and Output Intake and Output Intake and Output 02/24/22 07:00 Intake Total 600 ml Output Total 250 ml Balance 350 ml Intake Oral 600 ml Output Urine Total 250 ml # Voids 2 Laboratory Labs Laboratory Tests Test 02/23/22 11:30 Coronavirus (COVID-19)(PCR) Not detected (NOT DETECTD) Physical Exam HEENT: Neck Supple W Full Motion Chest: Symmetric LUNGS: Other (diminished bases) Heart: RRR Abdomen: Soft N/T Extremities: No Edema Neurology: alert, oriented, follow commands Assessment Assessment 1. Acute on chronic respiratory failure; multifactorial with AE COPD, a/c CHF, anemia, and possible PNA 2. Acute on chronic probable diastolic CHF; Echo with LVEF 55-60% 3. NSTEMI; trop peak 2161. EKG without significant acute changes. Most probable type II, demand ischemia. CP free. Not on anticoagulation due to anemia. 4. PAFIB; back in AFIB overnight, but converted to SR. 5. Anemia; s/p transfusion. GI following 6. PulmHTN; PAP 55 mmHG Recommendations Continue Cardizem for rate control Will add amiodarone for rhythm maintenance No anticoagulation therapy due to anemia requiring transfusion Add ASA therapy Mild diuresis Outpatient ischemic evaluation Supportive care Justicifation of Admission Dx: Justifications for Admission: Justification of Admission Dx: Yes DANIEL SCHAEFFER MD 02/24/22 1544: CARDIO Progress Notes Assessment Assessment Patient seen and examined She is feeling mildly better today. I agree with our nurse practitioners assessment and plan. Acute on chronic respiratory failure; multifactorial with AE COPD, a/c CHF, anemia, and possible PNA Acute on chronic probable diastolic CHF; Echo with LVEF 55-60% NSTEMI; trop peak 2161. EKG without significant acute changes. Most probable type II, demand ischemia. CP free. Not on anticoagulation due to anemia. PAFIB; back in AFIB overnight, but converted to SR. We will add low-dose amiodarone. Anemia; s/p transfusion. GI following PulmHTN; PAP 55 mmHG TIFFANI SHAFER APRN Feb 24, 2022 10:32 DANIEL SCHAEFFER MD Feb 24, 2022 15:44
[2022-02-24] MEDS: MAG HYDROX/ALUMINUM HYD/SIMETH 30 ML ORAL.SUSP PO PRN ×2 (10:47→20:47)
[2022-02-24 11:00] VITALS: BP 140/67
[2022-02-24] MEDS: IPRATRPIUM/ALBUTEROL 0.5/2.5MG 3 ML NEBU. NEB SCH ×4 (11:12→18:29)
[2022-02-24] MEDS ORDERED: FUROSEMIDE 40 MG/4 ML VIAL. IVP ONE (11:45)
--- NOTE | 2022-02-24 11:46 | PDOC ---
PULMONARY PROGRESS NOTES DATE: 02/24/22 TIME: 11:45 Subjective Patient still feels short of breath with exertion Vitals Vital Signs Date Time Temp Pulse Resp B/P (MAP) Pulse Ox O2 Delivery O2 Flow Rate FiO2 02/24/22 11:12 93 Nasal Cannula 3.0 02/24/22 08:26 80 136/61 02/24/22 07:00 97.6 18 97.6 General: Alert, No acute distress Lungs: Other (Decreased breath sounds at the bases.) Cardiovascular: S1 Abdomen: Soft Neuro Exam: Alert Extremities: No Edema Skin: Warm Labs Laboratory Tests Test 02/22/22 13:10 02/22/22 17:01 02/23/22 05:00 02/23/22 11:30 Stool Occult Blood Negative (NEG) Hemoglobin 7.9 g/dL (12.0-15.5) 8.1 g/dL (12.0-15.5) White Blood Count 10.2 x10^3/uL (4.0-11.0) Red Blood Count 3.81 x10^6/uL (3.50-5.40) Hematocrit 27.4 % (36.0-47.0) Mean Corpuscular Volume 72 fL (79-100) Mean Corpuscular Hemoglobin 21 pg (25-35) Mean Corpuscular Hemoglobin Concent 30 g/dL (31-37) Red Cell Distribution Width 18.9 % (11.5-14.5) Platelet Count 500 x10^3/uL (140-400) Sodium Level 137 mmol/L (136-145) Potassium Level 4.7 mmol/L (3.5-5.1) Chloride Level 98 mmol/L (98-107) Carbon Dioxide Level 37 mmol/L (21-32) Anion Gap 2 (6-14) Blood Urea Nitrogen 16 mg/dL (7-20) Creatinine 0.7 mg/dL (0.6-1.0) Estimated GFR (Cockcroft-Gault) 79.7 BUN/Creatinine Ratio 23 (6-20) Glucose Level 73 mg/dL (70-99) Calcium Level 8.9 mg/dL (8.5-10.1) Total Bilirubin 0.1 mg/dL (0.2-1.0) Aspartate Amino Transf (AST/SGOT) 19 U/L (15-37) Alanine Aminotransferase (ALT/SGPT) 18 U/L (14-59) Alkaline Phosphatase 46 U/L (46-116) Total Protein 5.6 g/dL (6.4-8.2) Albumin 2.5 g/dL (3.4-5.0) Albumin/Globulin Ratio 0.8 (1.0-1.7) Coronavirus (COVID-19)(PCR) Not detected (NOT DETECTD) Medications Active Scripts Medications Dose Route/Sig Max Daily Dose Days Date Category Prednisone 20 Mg Tablet 1 Tab PO DAILY 02/20/22 Reported Iron (Ferrous Gluconate) 240 Mg Tablet 1 Tab PO DAILY 30 02/20/22 Reported Omeprazole 40 Mg Capsule.dr 40 Mg PO DAILY 02/20/22 Reported Klor-Con 10 (Potassium Chloride) 10 Meq Tablet.er 10 Meq PO BID 02/20/22 Reported Milk Of Magnesia (Magnesium Hydroxide) 400 Mg/5 Ml Oral.susp 400 Mg PO BID PRN 02/20/22 Reported Dulcolax (Bisacodyl) 10 Mg Supp.rect 1 Supp RC DAILY 02/20/22 Reported Losartan Potassium 50 Mg Tablet 50 Mg PO DAILY 02/20/22 Reported Docusate Sodium 100 Mg Capsule 100 Mg PO BID 02/20/22 Reported Celexa (Citalopram Hydrobromide) 20 Mg Tablet 1 Tab PO DAILY 02/20/22 Reported Cardizem La (Diltiazem Hcl) 120 Mg Tab.er.24h 120 Mg PO DAILY 02/20/22 Reported Bumetanide 1 Mg Tablet 0.5 Tab PO DAILY 02/20/22 Reported Budesonide 0.5 Mg/2 Ml Ampul.neb 1 Vial NEB BID PRN 12/05/14 Reported Alprazolam 0.5 Mg Tablet 1 Tab PO BID PRN 12/05/14 Reported Impression . 1. Dyspnea secondary to multifactorial etiologies including underlying chronic obstructive pulmonary disease with chronic hypoxic respiratory failure, A/C Diastolic HF, and anemia. Clinically, less likely pneumonia. 2. Non-ST segment myocardial infarction. 3. Secondary pulmonary hypertension. 4. Atrial fibrillation ,now with controlled rate. 5. Acute on Chronic diastolic congestive heart failure. 6. Oropharyngeal dysphagia. Plan . 1. Continue present oxygen, which is her baseline. 2. CT chest reviewed. Most consistent with mild CHF. There is mild to moderate left pleural effusion and trace fluid in the fissure on the right side. There is compressive atelectasis. We will give extra dose of Lasix today. 3. Continue empiric antibiotics. 4. Follow Cardiology recommendations for management of atrial fibrillation. 5. Add bronchodilators. 6. Continue diuresis. Discussed with the patient. We will follow along with you. ARABELLA RUSHING MD Feb 24, 2022 11:46
[2022-02-24] MEDS: AMIODARONE HCL 200 MG TABLET. PO SCH (12:47)
[2022-02-24 15:00] VITALS: BP 152/69
--- NOTE | 2022-02-24 15:46 | PN ---
DATE: 02/24/2022 SUBJECTIVE: The patient is resting, slightly propped up in bed, in no apparent respiratory distress; however, she continued to desaturate down to 85%. She is normally on 3 liters of oxygen. She is now on 4 liters and her oxygen saturation is borderline. Her CT scan of the chest showed that the patient has mild to moderate left pleural effusion with collapse, most of the left lower lobe with dependent consolidated opacity and mild heterogenous opacities at the residual aerated superior segment, which could be extensive passive atelectasis from the pleural effusion versus lobar pneumonia, centrilobular nodules as well as nodular opacities measuring up to 9 mm of posterior right lower lobe are new. Nodular fluid densities within the right major and minor fissures posteriorly, likely loculated fissural pleural fluid, pulmonary emphysema. Followup CT scan imaging in 3 months was advised. PHYSICAL EXAMINATION: GENERAL: When I saw her today, she looked well and was clearly in no apparent respiratory distress. She is pale, not jaundiced, cyanosed or thyromegaly. No jugular venous distention. No limb edema. VITAL SIGNS: Her heart rate was 69, blood pressure is 140/67, temperature was 98, respiratory rate was 18 and oxygen saturation was 91% on 4 liters of oxygen. HEAD, EYES, EARS, NOSE, AND THROAT: Normocephalic, atraumatic. NECK: Supple. HEART: Showed normal first and second heart sounds. No gallop, rub or murmur. CHEST: Shows central trachea, equally reduced expansion, reduced air entry, vesicular breath sounds. I could not appreciate any crepitation or rhonchi. She has dull percussion note and absent breath sounds on the left side posteriorly. ABDOMEN: Distended, soft, nontender. NEUROLOGIC: She is demented without any obvious lateralizing sign. Her intake over the last 24 hours was 500, output was 1200. LABORATORY DATA: Her white cell count was 10, hemoglobin 8, hematocrit 27, MCV 72 and platelet count of 500,000. Her chemistry showed a serum sodium 137, potassium 4.7, chloride 98, bicarbonate 37, anion gap of 2, BUN 16, creatinine 0.7. Estimated GFR was 79 mL per minute. Her glucose was 73, calcium was 8.9. Total bilirubin, AST, ALT, alkaline phosphatase were normal. Total protein 5.6, albumin was 2.5. ASSESSMENT: 1. Acute on chronic hypoxic respiratory failure. The patient's oxygen requirement has increased to [address] scan showed that she has pleural effusion and total collapsed left lower lobe was possible evidence of fluid overload. 2. Chronic obstructive pulmonary disease. 3. Atrial fibrillation with rapid ventricular response, rate controlled. 4. Non-ST segment elevation myocardial infarction with normal EKG. Normal left ventricular systolic function. 5. Chronic diastolic congestive heart failure, for which we did start her on IV Lasix. 6. Pulmonary hypertension. 7. Paroxysmal atrial fibrillation, rate controlled, not anticoagulated. 8. Oropharyngeal dysphagia. 9. Anemia with hemoglobin of 6.8, hematocrit 23, for which she received 1 unit of packed RBCs and her hemoglobin and hematocrit have been stable. PLAN: To increase her iron to 3 times a day. Continue with amiodarone to control the heart rate. She is already on bumetanide 0.5 mg daily. Continue with the Cardizem to control the heart rate. I will increase the iron tablets 3 times a day as recommended by the traffic representative. We will evaluate her tomorrow and if her oxygen saturation improves, she can be discharged to a senior care facility or home with home health according to whatever her family decides. [facility] [place]: Cami TID: [id number]
[2022-02-24 19:00] VITALS: BP 148/71
[2022-02-24] MEDS: ALPRAZolam 0.5 MG TABLET PO PRN (20:47)
[2022-02-24 22:36] VITALS: BP 142/65
[2022-02-25 02:33] VITALS: BP 152/77
[2022-02-25 03:31] LABS: HEMATOCRIT 25.4 % (36.0-47.0); HEMOGLOBIN 8.2 g/dL (12.0-15.5); RED BLOOD COUNT 3.61 x10^6/uL (3.50-5.40); RED CELL DISTRIBUTION WIDTH 20.5 % (11.5-14.5); WHITE BLOOD COUNT 12.1 x10^3/uL (4.0-11.0)
[2022-02-25 03:51] LABS: ALBUMIN 2.7 g/dL (3.4-5.0); ALBUMIN/GLOBULIN RATIO 0.9 (1.0-1.7); ALK PHOS 55 U/L (46-116); ALT (SGPT) 18 U/L (14-59); AST (SGOT) 14 U/L (15-37); BLOOD UREA NITROGEN 17 mg/dL (7-20); BUN/CREATININE RATIO 17 (6-20); CALCIUM 8.5 mg/dL (8.5-10.1); CARBON DIOXIDE 41 mmol/L (21-32); CHLORIDE 95 mmol/L (98-107); CHOLESTEROL 159 mg/dL (0-200); GFR 52.8; GLUCOSE 90 mg/dL (70-99); HDLC 65 mg/dL (40-60); LDLC 86 mg/dL (0-100); POTASSIUM 4.3 mmol/L (3.5-5.1); SODIUM 134 mmol/L (136-145); TOTAL BILIRUBIN 0.2 mg/dL (0.2-1.0); TOTAL PROTEIN 5.7 g/dL (6.4-8.2); TRIGLYCERIDES 38 mg/dL (0-150); VLDLC 8 mg/dL (0-40)
[2022-02-25 03:52] LABS: CHOLESTEROL/HDL RATIO 2.4
[2022-02-25 07:00] VITALS: BP 160/75
[2022-02-25] MEDS: IPRATRPIUM/ALBUTEROL 0.5/2.5MG 3 ML NEBU. NEB SCH ×4 (08:31→20:56)
[2022-02-25] MEDS: BUDESONIDE 0.5 MG/2 ML NEBU. NEB SCH ×2 (08:31→20:56)
[2022-02-25] MEDS: DOCUSATE SODIUM 100 MG CAPSULE. PO SCH ×2 (08:47→21:51)
[2022-02-25] MEDS: LACTOBACILLUS RHAMNOSUS GG 1 CAPSULE. PO SCH ×2 (08:47→21:51)
[2022-02-25] MEDS: POTASSIUM CHLORIDE 10 MEQ TABLET.ER. PO SCH ×2 (08:47→21:52)
[2022-02-25] MEDS: BUMETANIDE 1 MG TABLET. PO SCH (08:47)
[2022-02-25] MEDS: predniSONE 20 MG TABLET PO SCH (08:47)
[2022-02-25] MEDS: CITALOPRAM 20 MG TABLET. PO SCH (08:47)
[2022-02-25] MEDS: LOSARTAN POTASSIUM 50 MG TABLET. PO SCH (08:47)
[2022-02-25] MEDS: AMIODARONE HCL 200 MG TABLET. PO SCH (08:48)
[2022-02-25] MEDS: PANTOPRAZOLE 40 MG TABLET.DR. PO SCH ×2 (08:48→16:46)
[2022-02-25] MEDS: FERROUS SULFATE 325 MG TABLET. PO SCH ×3 (08:48→16:46)
[2022-02-25] MEDS: ASPIRIN ENTERIC COATED 81 MG TABLET.DR. PO SCH (08:48)
[2022-02-25] MEDS: cefTRIAXone IV Push 1 GM VIAL. IVP SCH (08:50)
--- NOTE | 2022-02-25 09:34 | PDOC ---
Date of Service: DATE: 02/25/22 TIME: 09:30 Subjective: Subjective: Doesn't feel too good, can't really elaborate. Says eating okay. Hasn't stooled. Objective: Objective: 1 stool charted. Vital Signs: Vital Signs Date Time Temp Pulse Resp B/P (MAP) Pulse Ox O2 Delivery O2 Flow Rate FiO2 02/25/22 08:48 66 152/77 02/25/22 08:35 94 Nasal Cannula 3.0 02/25/22 07:00 98.1 17 98.1 Labs: Laboratory Tests Test 02/25/22 03:15 White Blood Count 12.1 x10^3/uL Red Blood Count 3.61 x10^6/uL Hemoglobin 8.2 g/dL Hematocrit 25.4 % Mean Corpuscular Volume 70 fL Mean Corpuscular Hemoglobin 23 pg Mean Corpuscular Hemoglobin Concent 32 g/dL Red Cell Distribution Width 20.5 % Platelet Count 475 x10^3/uL Sodium Level 134 mmol/L Potassium Level 4.3 mmol/L Chloride Level 95 mmol/L Carbon Dioxide Level 41 mmol/L Anion Gap Blood Urea Nitrogen 17 mg/dL Creatinine 1.0 mg/dL Estimated GFR (Cockcroft-Gault) 52.8 BUN/Creatinine Ratio 17 Glucose Level 90 mg/dL Calcium Level 8.5 mg/dL Total Bilirubin 0.2 mg/dL Aspartate Amino Transf (AST/SGOT) 14 U/L Alanine Aminotransferase (ALT/SGPT) 18 U/L Alkaline Phosphatase 55 U/L OY-Scu-[id number]-Type Natriuretic Peptide 801 pg/mL Total Protein 5.7 g/dL Albumin 2.7 g/dL Albumin/Globulin Ratio 0.9 Triglycerides Level 38 mg/dL Cholesterol Level 159 mg/dL LDL Cholesterol, Calculated 86 mg/dL VLDL Cholesterol, Calculated 8 mg/dL Non-HDL Cholesterol Calculated 94 mg/dL HDL Cholesterol 65 mg/dL Cholesterol/HDL Ratio 2.4 PE: GEN: NAD - has an empty bag of potato chips on tray LUNGS: diminished, NC 3L HEART: RRR ABD: S/ND/NT NEURO/PSYCH: A & O 3 A/P: DIMITRY - stable, no bleeding, on iron NSTEMI, A Fib - could consider anti-coagulation GERD - on PPI BID Pneumonia -- Seems forgetful re: stooling, probably not best historian. Miralax, etc. as needed. Continue iron and PPI. Justicifation of Admission Dx: Justifications for Admission: Justification of Admission Dx: Yes ZHANG GONZALES Feb 25, 2022 09:34
--- NOTE | 2022-02-25 09:53 | PDOC ---
TIFFANI SHAFER SAUSAGE COOKER 02/25/22 0953: CARDIO Progress Notes Date and Time Date of Service 02/25/22 Time of Evaluation 1210 Subjective Subjective: No Chest Pain, No Palpitations Vitals Vitals Vital Signs Date Time Temp Pulse Resp B/P (MAP) Pulse Ox O2 Delivery O2 Flow Rate FiO2 02/25/22 08:48 66 152/77 02/25/22 08:35 94 Nasal Cannula 3.0 02/25/22 07:00 98.1 17 98.1 Weight Weight [ ] Input and Output Intake and Output Intake and Output 02/25/22 07:00 Intake Total 700 ml Output Total 950 ml Balance -250 ml Intake Oral 700 ml Output Urine Total 950 ml # Bowel Movements 1 Laboratory Labs Laboratory Tests Test 02/25/22 03:15 White Blood Count 12.1 x10^3/uL (4.0-11.0) Red Blood Count 3.61 x10^6/uL (3.50-5.40) Hemoglobin 8.2 g/dL (12.0-15.5) Hematocrit 25.4 % (36.0-47.0) Mean Corpuscular Volume 70 fL (79-100) Mean Corpuscular Hemoglobin 23 pg (25-35) Mean Corpuscular Hemoglobin Concent 32 g/dL (31-37) Red Cell Distribution Width 20.5 % (11.5-14.5) Platelet Count 475 x10^3/uL (140-400) Sodium Level 134 mmol/L (136-145) Potassium Level 4.3 mmol/L (3.5-5.1) Chloride Level 95 mmol/L (98-107) Carbon Dioxide Level 41 mmol/L (21-32) Anion Gap (6-14) Blood Urea Nitrogen 17 mg/dL (7-20) Creatinine 1.0 mg/dL (0.6-1.0) Estimated GFR (Cockcroft-Gault) 52.8 BUN/Creatinine Ratio 17 (6-20) Glucose Level 90 mg/dL (70-99) Calcium Level 8.5 mg/dL (8.5-10.1) Total Bilirubin 0.2 mg/dL (0.2-1.0) Aspartate Amino Transf (AST/SGOT) 14 U/L (15-37) Alanine Aminotransferase (ALT/SGPT) 18 U/L (14-59) Alkaline Phosphatase 55 U/L (46-116) UV-Ftr-R-Type Natriuretic Peptide 801 pg/mL (0-449) Total Protein 5.7 g/dL (6.4-8.2) Albumin 2.7 g/dL (3.4-5.0) Albumin/Globulin Ratio 0.9 (1.0-1.7) Triglycerides Level 38 mg/dL (0-150) Cholesterol Level 159 mg/dL (0-200) LDL Cholesterol, Calculated 86 mg/dL (0-100) VLDL Cholesterol, Calculated 8 mg/dL (0-40) Non-HDL Cholesterol Calculated 94 mg/dL (0-129) HDL Cholesterol 65 mg/dL (40-60) Cholesterol/HDL Ratio 2.4 Physical Exam HEENT: Neck Supple W Full Motion Chest: Symmetric LUNGS: Other (diminished bases) Heart: RRR Abdomen: Soft N/T Extremities: Other (bilateral UE edema ) Neurology: alert, oriented, follow commands Assessment Assessment 1. Acute on chronic respiratory failure; multifactorial with AE COPD, a/c CHF, anemia, and possible PNA. s/p IV Lasix 2. Acute on chronic probable diastolic CHF; Echo with LVEF 55-60% 3. NSTEMI; trop peak 2161. EKG without significant acute changes. Most probable type II, demand ischemia. CP free. Not on anticoagulation due to anemia. 4. PAFIB; presently SR. paroxysms of AFIB noted yesterday on tele. 5. Anemia; s/p transfusion. hgb stable. as per GI 6. PulmHTN; PAP 55 mmHG Recommendations Continue Cardizem for rate control Amiodarone added for rhythm maintenance No anticoagulation therapy due to anemia requiring transfusion Add ASA therapy Outpatient ischemic evaluation Supportive care Follow up in our office as scheduled. Justicifation of Admission Dx: Justifications for Admission: Justification of Admission Dx: Yes DANIEL SCHAEFFER MD 02/25/22 1621: CARDIO Progress Notes Assessment Assessment Patient seen and examined She looks and feels better today. I agree with our nurse practitioners assessment and plan. Acute on chronic respiratory failure; multifactorial with AE COPD, a/c CHF, anemia, and possible PNA. Acute on chronic probable diastolic CHF; Echo with LVEF 55-60% NSTEMI; trop peak 2161. EKG without significant acute changes. Most probable type II, demand ischemia. CP free. Not on anticoagulation due to anemia. PAFIB; presently SR. paroxysms of AFIB noted yesterday on tele. Low-dose amiodarone started. Outpatient follow-up. Anemia; s/p transfusion. hgb stable. as per GI PulmHTN; PAP 55 mmHG TIFFANI SHAFER APRN Feb 25, 2022 09:53 DANIEL SCHAEFFER MD Feb 25, 2022 16:21
[2022-02-25] MEDS: POLYETHYLENE GLYCOL 3350 17 GM PACKET. PO SCH (09:57)
--- NOTE | 2022-02-25 10:23 | PDOC ---
PULMONARY PROGRESS NOTES DATE: 02/25/22 TIME: 10:22 Subjective Patient still feels short of breath with exertion but improved since admission. Remains on 3 L which is her baseline. Vitals Vital Signs Date Time Temp Pulse Resp B/P (MAP) Pulse Ox O2 Delivery O2 Flow Rate FiO2 02/25/22 08:48 66 152/77 02/25/22 08:35 94 Nasal Cannula 3.0 02/25/22 07:00 98.1 17 98.1 General: Alert, No acute distress Lungs: Other (Decreased breath sounds at the bases.) Cardiovascular: S1 Abdomen: Soft Neuro Exam: Alert Extremities: No Edema Skin: Warm Labs Laboratory Tests Test 02/23/22 11:30 02/25/22 03:15 Coronavirus (COVID-19)(PCR) Not detected (NOT DETECTD) White Blood Count 12.1 x10^3/uL (4.0-11.0) Red Blood Count 3.61 x10^6/uL (3.50-5.40) Hemoglobin 8.2 g/dL (12.0-15.5) Hematocrit 25.4 % (36.0-47.0) Mean Corpuscular Volume 70 fL (79-100) Mean Corpuscular Hemoglobin 23 pg (25-35) Mean Corpuscular Hemoglobin Concent 32 g/dL (31-37) Red Cell Distribution Width 20.5 % (11.5-14.5) Platelet Count 475 x10^3/uL (140-400) Sodium Level 134 mmol/L (136-145) Potassium Level 4.3 mmol/L (3.5-5.1) Chloride Level 95 mmol/L (98-107) Carbon Dioxide Level 41 mmol/L (21-32) Anion Gap (6-14) Blood Urea Nitrogen 17 mg/dL (7-20) Creatinine 1.0 mg/dL (0.6-1.0) Estimated GFR (Cockcroft-Gault) 52.8 BUN/Creatinine Ratio 17 (6-20) Glucose Level 90 mg/dL (70-99) Calcium Level 8.5 mg/dL (8.5-10.1) Total Bilirubin 0.2 mg/dL (0.2-1.0) Aspartate Amino Transf (AST/SGOT) 14 U/L (15-37) Alanine Aminotransferase (ALT/SGPT) 18 U/L (14-59) Alkaline Phosphatase 55 U/L (46-116) UA-Kzt-W-Type Natriuretic Peptide 801 pg/mL (0-449) Total Protein 5.7 g/dL (6.4-8.2) Albumin 2.7 g/dL (3.4-5.0) Albumin/Globulin Ratio 0.9 (1.0-1.7) Triglycerides Level 38 mg/dL (0-150) Cholesterol Level 159 mg/dL (0-200) LDL Cholesterol, Calculated 86 mg/dL (0-100) VLDL Cholesterol, Calculated 8 mg/dL (0-40) Non-HDL Cholesterol Calculated 94 mg/dL (0-129) HDL Cholesterol 65 mg/dL (40-60) Cholesterol/HDL Ratio 2.4 Laboratory Tests Test 02/25/22 03:15 White Blood Count 12.1 x10^3/uL (4.0-11.0) Red Blood Count 3.61 x10^6/uL (3.50-5.40) Hemoglobin 8.2 g/dL (12.0-15.5) Hematocrit 25.4 % (36.0-47.0) Mean Corpuscular Volume 70 fL (79-100) Mean Corpuscular Hemoglobin 23 pg (25-35) Mean Corpuscular Hemoglobin Concent 32 g/dL (31-37) Red Cell Distribution Width 20.5 % (11.5-14.5) Platelet Count 475 x10^3/uL (140-400) Sodium Level 134 mmol/L (136-145) Potassium Level 4.3 mmol/L (3.5-5.1) Chloride Level 95 mmol/L (98-107) Carbon Dioxide Level 41 mmol/L (21-32) Anion Gap (6-14) Blood Urea Nitrogen 17 mg/dL (7-20) Creatinine 1.0 mg/dL (0.6-1.0) Estimated GFR (Cockcroft-Gault) 52.8 BUN/Creatinine Ratio 17 (6-20) Glucose Level 90 mg/dL (70-99) Calcium Level 8.5 mg/dL (8.5-10.1) Total Bilirubin 0.2 mg/dL (0.2-1.0) Aspartate Amino Transf (AST/SGOT) 14 U/L (15-37) Alanine Aminotransferase (ALT/SGPT) 18 U/L (14-59) Alkaline Phosphatase 55 U/L (46-116) RW-Gzo-X-Type Natriuretic Peptide 801 pg/mL (0-449) Total Protein 5.7 g/dL (6.4-8.2) Albumin 2.7 g/dL (3.4-5.0) Albumin/Globulin Ratio 0.9 (1.0-1.7) Triglycerides Level 38 mg/dL (0-150) Cholesterol Level 159 mg/dL (0-200) LDL Cholesterol, Calculated 86 mg/dL (0-100) VLDL Cholesterol, Calculated 8 mg/dL (0-40) Non-HDL Cholesterol Calculated 94 mg/dL (0-129) HDL Cholesterol 65 mg/dL (40-60) Cholesterol/HDL Ratio 2.4 Medications Active Scripts Medications Dose Route/Sig Max Daily Dose Days Date Category Prednisone 20 Mg Tablet 1 Tab PO DAILY 02/20/22 Reported Iron (Ferrous Gluconate) 240 Mg Tablet 1 Tab PO DAILY 30 02/20/22 Reported Omeprazole 40 Mg Capsule.dr 40 Mg PO DAILY 02/20/22 Reported Klor-Con 10 (Potassium Chloride) 10 Meq Tablet.er 10 Meq PO BID 02/20/22 Reported Milk Of Magnesia (Magnesium Hydroxide) 400 Mg/5 Ml Oral.susp 400 Mg PO BID PRN 02/20/22 Reported Dulcolax (Bisacodyl) 10 Mg Supp.rect 1 Supp RC DAILY 02/20/22 Reported Losartan Potassium 50 Mg Tablet 50 Mg PO DAILY 02/20/22 Reported Docusate Sodium 100 Mg Capsule 100 Mg PO BID 02/20/22 Reported Celexa (Citalopram Hydrobromide) 20 Mg Tablet 1 Tab PO DAILY 02/20/22 Reported Cardizem La (Diltiazem Hcl) 120 Mg Tab.er.24h 120 Mg PO DAILY 02/20/22 Reported Bumetanide 1 Mg Tablet 0.5 Tab PO DAILY 02/20/22 Reported Budesonide 0.5 Mg/2 Ml Ampul.neb 1 Vial NEB BID PRN 12/05/14 Reported Alprazolam 0.5 Mg Tablet 1 Tab PO BID PRN 12/05/14 Reported Impression . 1. Dyspnea secondary to multifactorial etiologies including underlying chronic obstructive pulmonary disease with chronic hypoxic respiratory failure, A/C Diastolic HF, and anemia. Clinically, less likely pneumonia. 2. Non-ST segment myocardial infarction. 3. Secondary pulmonary hypertension. 4. Atrial fibrillation ,now with controlled rate. 5. Acute on Chronic diastolic congestive heart failure. 6. Oropharyngeal dysphagia. Plan . 1. Continue present oxygen, which is her baseline. She will probably need 4 to 5 L of oxygen with exertion. 2. CT chest reviewed. Most consistent with mild CHF. There is mild to moderate left pleural effusion and trace fluid in the fissure on the right side. There is compressive atelectasis. Status post extra doses of Lasix for last 2 days. 3. Continue empiric antibiotics. 4. Follow Cardiology recommendations for management of atrial fibrillation. 5. bronchodilators. 6. Continue diuresis. Discussed with the patient and her daughter. Discussed with Dr. Parker as well. Would recommend a 6-minute walk test and assess the need for optimum oxygen with exertion. Not much to add. Okay with discharge later today. ARABELLA RUSHING MD Feb 25, 2022 10:23
[2022-02-25 11:00] VITALS: BP 138/68
[2022-02-25] MEDS ORDERED: LIDO:MAALOX 1:1 20 ML SINGLE DOSE. PO PRN (14:45)
[2022-02-25 15:00] VITALS: BP 131/59
--- NOTE | 2022-02-25 16:36 | NUR ---
SS following up with discharge planning. SS reviewed pt chart and discussed with pt RN. Pt is currently requiring oxygen at three liters nasal canula. Pt does have home oxygen per physician and family. COVID19 negative. PT/OT recommended [facility]. Pt accepted at [facility], ; fax [phone], and [facility], ; fax [phone], pending insurance approval. Pt's daughter undecided of discharge plan at this time and has considered home healthcare. Dr. Smith contacted pt's daughter and had discussion about discharge planning, medical status, and discharge options. Pt's family told Dr. Smith that they would have a decision tomorrow. Anticipate discharge tomorrow. Pt's RN notified. SS will continue to follow for discharge planning.
[2022-02-25 19:00] VITALS: BP 131/59
[2022-02-25] MEDS: ALPRAZolam 0.5 MG TABLET PO PRN (21:51)
[2022-02-25] MEDS: MAG HYDROX/ALUMINUM HYD/SIMETH 30 ML ORAL.SUSP PO PRN (21:59)
--- NOTE | 2022-02-25 22:01 | PN ---
DATE: 02/25/2022 SUBJECTIVE: The patient is resting, slightly propped up in bed, in no apparent distress. She continued to complain of shortness of breath and acid reflux, although she is already on 40 mg of Protonix twice a day as well as Maalox 30 mL every 4 hours. PHYSICAL EXAMINATION: GENERAL: When I examined her, she was pale, not jaundiced or cyanosed, no lymphadenopathy, no thyromegaly, no jugular venous distention, no limb edema. VITAL SIGNS: Her heart rate was 77, blood pressure was 138/68, temperature was 98, respiratory rate was 17 and oxygen saturation was 95% on 3 liters of oxygen. HEAD, EYES, EARS, NOSE AND THROAT: Normocephalic, atraumatic. NECK: Supple. HEART: Showed normal first and second heart sounds. No gallop, rub or murmur. CHEST: Clear to auscultation, no crepitation or rhonchi. ABDOMEN: Slightly distended, soft, nontender. NEUROLOGIC: She is demented, but without any obvious lateralizing sign. Her intake was 500, output was 1200. LABORATORY DATA: Her white cell count today was 12,000, hemoglobin 8.2, hematocrit 25, MCV 70 and platelet count 475,000. Her chemistry showed a serum sodium 134, potassium 4.3, chloride 95, bicarbonate 41, BUN 17, creatinine 1, estimated GFR was 52 mL per minute. Her glucose was 90, calcium was 8.5. Total bilirubin, AST, ALT, alkaline phosphatase are normal. Total protein 5.7, albumin 2.7. Serum triglycerides 38, total cholesterol 159, LDL was 86, VLDL was 8, HDL cholesterol was 65 and cholesterol to HDL cholesterol ratio was 2.4. Her TSH was 1.67. ASSESSMENT: 1. Acute on chronic hypoxic respiratory failure. The patient's oxygen requirement has increased to [address] scan showed that she has pleural effusion, total collapsed left lower lobe with possible evidence of fluid overload, for which she received 40 mg of IV Lasix. 2. Chronic obstructive pulmonary disease. 3. Atrial fibrillation with rapid ventricular response, rate controlled. 4. Non-ST segment elevation myocardial infarction with normal EKG, normal left ventricular systolic function. 5. Chronic diastolic congestive heart failure, for which we did start her on IV Lasix. 6. Pulmonary hypertension. 7. Paroxysmal atrial fibrillation, rate controlled, not anticoagulated. 8. Oropharyngeal dysphagia. 9. Anemia with hemoglobin of 6.8, hematocrit 23, for which she received 1 unit of packed RBCs. Her hemoglobin and hematocrit have been stable around 8 and 24. PLAN: Continue with amiodarone to control the heart rate as well as diltiazem. Continue with ceftriaxone for treatment of pneumonia. She apparently was accepted to assisted facility. We are awaiting the insurance authorization. DO DR: Cami TID: [id number]
[2022-02-25 22:41] VITALS: BP 176/87
[2022-02-26 02:06] VITALS: BP 181/87
[2022-02-26 03:18] VITALS: BP 165/79
[2022-02-26] MEDS: PANTOPRAZOLE 40 MG TABLET.DR. PO SCH ×2 (05:25→17:02)
[2022-02-26 07:00] VITALS: BP 152/69
[2022-02-26] MEDS: IPRATRPIUM/ALBUTEROL 0.5/2.5MG 3 ML NEBU. NEB SCH ×4 (07:25→20:00)
[2022-02-26] MEDS: BUDESONIDE 0.5 MG/2 ML NEBU. NEB SCH ×2 (07:25→20:45)
[2022-02-26] MEDS: BUMETANIDE 1 MG TABLET. PO SCH (08:17)
[2022-02-26] MEDS: AMIODARONE HCL 200 MG TABLET. PO SCH (08:18)
[2022-02-26] MEDS: CITALOPRAM 20 MG TABLET. PO SCH (08:18)
[2022-02-26] MEDS: FERROUS SULFATE 325 MG TABLET. PO SCH ×3 (08:19→17:02)
[2022-02-26] MEDS: POTASSIUM CHLORIDE 10 MEQ TABLET.ER. PO SCH ×2 (08:19→22:57)
[2022-02-26] MEDS: LACTOBACILLUS RHAMNOSUS GG 1 CAPSULE. PO SCH ×2 (08:19→22:56)
[2022-02-26] MEDS: ASPIRIN ENTERIC COATED 81 MG TABLET.DR. PO SCH (08:19)
[2022-02-26 08:20] LABS: HEMOGLOBIN 8.5 g/dL (12.0-15.5); RED BLOOD COUNT 3.87 x10^6/uL (3.50-5.40); RED CELL DISTRIBUTION WIDTH 20.4 % (11.5-14.5); WHITE BLOOD COUNT 11.3 x10^3/uL (4.0-11.0)
[2022-02-26] MEDS: POLYETHYLENE GLYCOL 3350 17 GM PACKET. PO SCH (08:20)
[2022-02-26] MEDS: DOCUSATE SODIUM 100 MG CAPSULE. PO SCH ×2 (08:20→22:56)
[2022-02-26] MEDS: cefTRIAXone IV Push 1 GM VIAL. IVP SCH (08:20)
[2022-02-26] MEDS: predniSONE 20 MG TABLET PO SCH (08:20)
[2022-02-26] MEDS: LOSARTAN POTASSIUM 50 MG TABLET. PO SCH (08:20)
[2022-02-26 08:40] LABS: CALCIUM 8.8 mg/dL (8.5-10.1); CREATININE 0.9 mg/dL (0.6-1.0); GFR 59.7; POTASSIUM 4.5 mmol/L (3.5-5.1)
--- NOTE | 2022-02-26 10:48 | PDOC ---
PULMONARY PROGRESS NOTES DATE: 02/26/22 TIME: 10:47 Subjective Patient still feels short of breath with exertion but improved since admission. Remains on 3 L which is her baseline. Vitals Vital Signs Date Time Temp Pulse Resp B/P (MAP) Pulse Ox O2 Delivery O2 Flow Rate FiO2 02/26/22 08:20 59 165/79 02/26/22 07:26 95 Nasal Cannula 3.0 02/26/22 07:00 97.3 18 97.3 General: Alert, No acute distress Lungs: Other (Decreased breath sounds at the bases.) Cardiovascular: S1 Abdomen: Soft Neuro Exam: Alert Extremities: No Edema Skin: Warm Labs Laboratory Tests Test 02/25/22 03:15 02/26/22 07:45 White Blood Count 12.1 x10^3/uL (4.0-11.0) 11.3 x10^3/uL (4.0-11.0) Red Blood Count 3.61 x10^6/uL (3.50-5.40) 3.87 x10^6/uL (3.50-5.40) Hemoglobin 8.2 g/dL (12.0-15.5) 8.5 g/dL (12.0-15.5) Hematocrit 25.4 % (36.0-47.0) 28.0 % (36.0-47.0) Mean Corpuscular Volume 70 fL (79-100) 72 fL (79-100) Mean Corpuscular Hemoglobin 23 pg (25-35) 22 pg (25-35) Mean Corpuscular Hemoglobin Concent 32 g/dL (31-37) 31 g/dL (31-37) Red Cell Distribution Width 20.5 % (11.5-14.5) 20.4 % (11.5-14.5) Platelet Count 475 x10^3/uL (140-400) 485 x10^3/uL (140-400) Sodium Level 134 mmol/L (136-145) 134 mmol/L (136-145) Potassium Level 4.3 mmol/L (3.5-5.1) 4.5 mmol/L (3.5-5.1) Chloride Level 95 mmol/L (98-107) 94 mmol/L (98-107) Carbon Dioxide Level 41 mmol/L (21-32) 38 mmol/L (21-32) Anion Gap (6-14) 2 (6-14) Blood Urea Nitrogen 17 mg/dL (7-20) 17 mg/dL (7-20) Creatinine 1.0 mg/dL (0.6-1.0) 0.9 mg/dL (0.6-1.0) Estimated GFR (Cockcroft-Gault) 52.8 59.7 BUN/Creatinine Ratio 17 (6-20) Glucose Level 90 mg/dL (70-99) 81 mg/dL (70-99) Calcium Level 8.5 mg/dL (8.5-10.1) 8.8 mg/dL (8.5-10.1) Total Bilirubin 0.2 mg/dL (0.2-1.0) Aspartate Amino Transf (AST/SGOT) 14 U/L (15-37) Alanine Aminotransferase (ALT/SGPT) 18 U/L (14-59) Alkaline Phosphatase 55 U/L (46-116) AI-Lhx-J-Type Natriuretic Peptide 801 pg/mL (0-449) Total Protein 5.7 g/dL (6.4-8.2) Albumin 2.7 g/dL (3.4-5.0) Albumin/Globulin Ratio 0.9 (1.0-1.7) Triglycerides Level 38 mg/dL (0-150) Cholesterol Level 159 mg/dL (0-200) LDL Cholesterol, Calculated 86 mg/dL (0-100) VLDL Cholesterol, Calculated 8 mg/dL (0-40) Non-HDL Cholesterol Calculated 94 mg/dL (0-129) HDL Cholesterol 65 mg/dL (40-60) Cholesterol/HDL Ratio 2.4 Laboratory Tests Test 02/26/22 07:45 White Blood Count 11.3 x10^3/uL (4.0-11.0) Red Blood Count 3.87 x10^6/uL (3.50-5.40) Hemoglobin 8.5 g/dL (12.0-15.5) Hematocrit 28.0 % (36.0-47.0) Mean Corpuscular Volume 72 fL (79-100) Mean Corpuscular Hemoglobin 22 pg (25-35) Mean Corpuscular Hemoglobin Concent 31 g/dL (31-37) Red Cell Distribution Width 20.4 % (11.5-14.5) Platelet Count 485 x10^3/uL (140-400) Sodium Level 134 mmol/L (136-145) Potassium Level 4.5 mmol/L (3.5-5.1) Chloride Level 94 mmol/L (98-107) Carbon Dioxide Level 38 mmol/L (21-32) Anion Gap 2 (6-14) Blood Urea Nitrogen 17 mg/dL (7-20) Creatinine 0.9 mg/dL (0.6-1.0) Estimated GFR (Cockcroft-Gault) 59.7 Glucose Level 81 mg/dL (70-99) Calcium Level 8.8 mg/dL (8.5-10.1) Medications Active Scripts Medications Dose Route/Sig Max Daily Dose Days Date Category Prednisone 20 Mg Tablet 1 Tab PO DAILY 02/20/22 Reported Iron (Ferrous Gluconate) 240 Mg Tablet 1 Tab PO DAILY 30 02/20/22 Reported Omeprazole 40 Mg Capsule.dr 40 Mg PO DAILY 02/20/22 Reported Klor-Con 10 (Potassium Chloride) 10 Meq Tablet.er 10 Meq PO BID 02/20/22 Reported Milk Of Magnesia (Magnesium Hydroxide) 400 Mg/5 Ml Oral.susp 400 Mg PO BID PRN 02/20/22 Reported Dulcolax (Bisacodyl) 10 Mg Supp.rect 1 Supp RC DAILY 02/20/22 Reported Losartan Potassium 50 Mg Tablet 50 Mg PO DAILY 02/20/22 Reported Docusate Sodium 100 Mg Capsule 100 Mg PO BID 02/20/22 Reported Celexa (Citalopram Hydrobromide) 20 Mg Tablet 1 Tab PO DAILY 02/20/22 Reported Cardizem La (Diltiazem Hcl) 120 Mg Tab.er.24h 120 Mg PO DAILY 02/20/22 Reported Bumetanide 1 Mg Tablet 0.5 Tab PO DAILY 02/20/22 Reported Budesonide 0.5 Mg/2 Ml Ampul.neb 1 Vial NEB BID PRN 12/05/14 Reported Alprazolam 0.5 Mg Tablet 1 Tab PO BID PRN 12/05/14 Reported Impression . 1. Dyspnea secondary to multifactorial etiologies including underlying chronic obstructive pulmonary disease with chronic hypoxic respiratory failure, A/C D iastolic HF, and anemia. Clinically, less likely pneumonia. 2. Non-ST segment myocardial infarction. 3. Secondary pulmonary hypertension. 4. Atrial fibrillation ,now with controlled rate. 5. Acute on Chronic diastolic congestive heart failure. 6. Oropharyngeal dysphagia. Plan . 1. Continue present oxygen, which is her baseline. She will probably need 4 to 5 L of oxygen with exertion. Will order 6-minute walk test today. 2. CT chest reviewed. Most consistent with mild CHF. There is mild to moderate left pleural effusion and trace fluid in the fissure on the right side. There is compressive atelectasis. Status post extra doses of Lasix for last 2 days. 3. Continue empiric antibiotics. 4. Follow Cardiology recommendations for management of atrial fibrillation. 5. bronchodilators. 6. Continue diuresis. Discussed with the patient and her daughter. Discussed with Dr. Smith as well. Would recommend a 6-minute walk test and assess the need for optimum oxygen with exertion. Not much to add. Okay with discharge later today. ARABELLA RUSHING MD Feb 26, 2022 10:48
--- NOTE | 2022-02-26 11:11 | NUR ---
SS following for discharge planning. SS reviewed pt chart and discussed with pt RN. Pt is currently requiring oxygen at three liters nasal canula. COVID19 negative. Pt has home oxygen. PT/OT recommended retirement unit. Pt accepted at [facility] and [facility]. Dr. Smith met with pt and pt's daughter in room this morning and discussed medical status and discharge planning. Pt and pt's daughter declining retirement unit at this time. Pt and pt's daughter requesting home with home healthcare services. Discharge orders received and sent to [facility], ; fax [phone], with referral and pt accepted on services. Pt's RN notified. Daughter to provide transportation to home.
[2022-02-26] MEDS ORDERED: MAG-115 PO (11:12)
[2022-02-26] MEDS ORDERED: FURO-69 PO (11:12)
[2022-02-26] MEDS ORDERED: PANT40TA77 PO (11:12)
[2022-02-26] MEDS ORDERED: AMIO200T53 PO (11:12)
--- NOTE | 2022-02-26 11:17 | SNU/HH DC ---
DISCHARGE WITH HOME HEALTH DISCHARGE INFORMATION: Discharge Date: Feb 26, 2022 Final Diagnosis: Blood loss anemia acute on chronic hypoxic respiratory failure acute on chronic diastolic chf atrial fibrillation COPD Pulmonary hypertension Condition on Discharge: Stable CODE STATUS: Code Status: Full HOME HEALTH: Face to Face: I certify this patient is under my care and that I, or a nurse practitioner or physician's therapist's assistant working with me, had a face to face encounter that meets the physician face to face encounter requirements with this patient on 02/26/2022 Medical Complications: COPD RN For Eval/Treatment: Yes Physical Therapy For: Evalulation/Treatment Occupational Therapy For: Evaluation/Treatment Pt Meets Homebound Status: Extreme weakness w/ amb. POST DISCHARGE ORDERS: Activity Instructions for Disc: Activity as tolerated DIET AFTER DISCHARGE: Cardiac CERTIFICATION STATEMENT: Certification Statement: Certification Statement: Based on the above finding, I certify that this patient is confined to the home and needs intermittent longterm care, physical therapy and/or speech therapy, or continues to need occupational therapy.~ This patient is under my care, and I have initiated the establishment of the plan of care.~ This patient will be followed by myself or a community physician who will periodically review the plan of care. Home Meds Active Scripts Amiodarone Hcl (AMIODARONE HCL) 200 Mg Tablet, 1 TAB PO DAILY for afib for 30 Days, #30 TAB 5 Refills Prov:AHMET PHAN MD 02/26/22 Mag Hydrox/Aluminum Hyd/Simeth (Mylanta Maximum Strength Liq) 355 Ml Oral.susp, 30 ML PO Q4H for gerd for 30 Days, #1 MISC 5 Refills Prov:AHMET PHAN MD 02/26/22 Pantoprazole Sodium (PROTONIX ) 40 Mg Tablet.dr, 40 MG PO BID for GERD for 30 Days, #60 TAB Prov:AHMET PHAN MD 02/26/22 Furosemide (LASIX) 20 Mg Tablet, 1 TAB PO DAILY for chf for 30 Days, #30 TAB 5 Refills Prov:AHMET PHAN MD 02/26/22 Reported Medications Prednisone (PREDNISONE) 20 Mg Tablet, 1 TAB PO DAILY for pulmonary hypertension, COPD, #5 TAB 02/20/22 Ferrous Gluconate (IRON) 240 Mg Tablet, 1 TAB PO DAILY for anemia for 30 Days, #30 TAB 0 Refills 02/20/22 Potassium Chloride (KLOR-CON 10) 10 Meq Tablet.er, 10 MEQ PO BID for hypokalemia, TAB 02/20/22 Magnesium Hydroxide (MILK OF MAGNESIA) 400 Mg/5 Ml Oral.susp, 400 MG PO BID PRN for CONSTIPATION, MISC 02/20/22 Bisacodyl (DULCOLAX) 10 Mg Supp.rect, 1 SUPP RC DAILY for constipation, SUPP 0 Refills 02/20/22 Losartan Potassium (LOSARTAN POTASSIUM) 50 Mg Tablet, 50 MG PO DAILY for HYPERTENSION, TAB 02/20/22 Docusate Sodium (DOCUSATE SODIUM) 100 Mg Capsule, 100 MG PO BID for constipation, CAP 0 Refills 02/20/22 Citalopram Hydrobromide (CELEXA) 20 Mg Tablet, 1 TAB PO DAILY for depression, #90 TAB 3 Refills 02/20/22 Diltiazem Hcl (CARDIZEM LA) 120 Mg Tab.er.24h, 120 MG PO DAILY for hypertension, #30 TAB 0 Refills 02/20/22 Budesonide (BUDESONIDE) 0.5 Mg/2 Ml Ampul.neb, 1 VIAL NEB BID PRN for SHORTNESS OF BREATH, #120 ML 3 Refills 12/05/14 Alprazolam (ALPRAZOLAM) 0.5 Mg Tablet, 1 TAB PO BID PRN for ANXIETY / AGITATION, #30 TAB 12/05/14 Discontinued Reported Medications Omeprazole (OMEPRAZOLE) 40 Mg Capsule.dr, 40 MG PO DAILY for Gerd, CAP 02/20/22 Bumetanide (BUMETANIDE) 1 Mg Tablet, 0.5 TAB PO DAILY for Edema, #90 TAB 1 Refill 02/20/22 Paroxetine Hcl (PAROXETINE HCL) 20 Mg Tablet, 1 TAB PO DAILY, #30 TAB 5 Refills 12/05/14 Hydrochlorothiazide (HYDROCHLOROTHIAZIDE CAPSULE ) 12.5 Mg Capsule, 1 CAP PO DAILY, #30 CAP 5 Refills 12/05/14 Amlodipine Besylate (NORVASC) 10 Mg Tablet, 1 TAB PO DAILY, #30 TAB 5 Refills 12/05/14 Clonidine Hcl (CLONIDINE HCL) 0.2 Mg Tablet, 1 TAB PO BID, #60 TAB 5 Refills 12/05/14 Arformoterol Tartrate (BROVANA) 15 Mcg/2 Ml Vial.neb, 1 VIAL NEB BID, #320 ML 3 Refills 12/05/14 Aclidinium Bluejacket (TUDORZA PRESSAIR) 400 Mcg Aer.pow.ba, 400 MCG IH 12/05/14 Enalapril Maleate (ENALAPRIL MALEATE) 20 Mg Tablet, 1 TAB PO BID, #180 TAB 1 Refill 12/05/14 AHMET PHAN MD Feb 26, 2022 11:17
--- NOTE | 2022-02-26 11:48 | PDOC ---
Date of Service: DATE: 02/26/22 TIME: 11:45 Subjective: Subjective: Acid isn't as bad as it has been. Again thinks Miralax helps - says it was NOT Mylanta. Daughter present w/ questions. Objective: Objective: D/w Dr. Smith - plans to DC. Vital Signs: Vital Signs Date Time Temp Pulse Resp B/P (MAP) Pulse Ox O2 Delivery O2 Flow Rate FiO2 02/26/22 11:36 95 Nasal Cannula 3.0 02/26/22 08:20 59 165/79 02/26/22 07:00 97.3 18 97.3 PE: GEN: NAD, up in chair LUNGS: NC 3L, diminished HEART: RRR ABD: S/ND/NT NEURO/PSYCH: A & O 3, forgetful A/P: DIMITRY - stable GERD, ?constipation NSTEMI, A Fib, pneumonia -- DC per primary on iron and PPI. Use Miralax PRN. Justicifation of Admission Dx: Justifications for Admission: Justification of Admission Dx: Yes ZHANG GONZALES Feb 26, 2022 11:48
--- NOTE | 2022-02-26 12:13 | PDOC ---
CARDIO Progress Notes Date and Time Date of Service 02/26/2022 Time of Evaluation 1200 Subjective Subjective: No Chest Pain, No shortness of breath, No Palpitations Vitals Vitals Vital Signs Date Time Temp Pulse Resp B/P (MAP) Pulse Ox O2 Delivery O2 Flow Rate FiO2 02/26/22 11:36 95 Nasal Cannula 3.0 02/26/22 08:20 59 165/79 02/26/22 07:00 97.3 18 97.3 Weight Weight [ ] Input and Output Intake and Output Intake and Output 02/26/22 07:00 Intake Total 1000 ml Output Total 900 ml Balance 100 ml Intake Oral 1000 ml Output Urine Total 900 ml Laboratory Labs Laboratory Tests Test 02/26/22 07:45 White Blood Count 11.3 x10^3/uL (4.0-11.0) Red Blood Count 3.87 x10^6/uL (3.50-5.40) Hemoglobin 8.5 g/dL (12.0-15.5) Hematocrit 28.0 % (36.0-47.0) Mean Corpuscular Volume 72 fL (79-100) Mean Corpuscular Hemoglobin 22 pg (25-35) Mean Corpuscular Hemoglobin Concent 31 g/dL (31-37) Red Cell Distribution Width 20.4 % (11.5-14.5) Platelet Count 485 x10^3/uL (140-400) Sodium Level 134 mmol/L (136-145) Potassium Level 4.5 mmol/L (3.5-5.1) Chloride Level 94 mmol/L (98-107) Carbon Dioxide Level 38 mmol/L (21-32) Anion Gap 2 (6-14) Blood Urea Nitrogen 17 mg/dL (7-20) Creatinine 0.9 mg/dL (0.6-1.0) Estimated GFR (Cockcroft-Gault) 59.7 Glucose Level 81 mg/dL (70-99) Calcium Level 8.8 mg/dL (8.5-10.1) Physical Exam HEENT: Neck Supple W Full Motion Chest: Symmetric LUNGS: Other (diminished bases) Heart: RRR (SR with PVCs) Abdomen: Soft N/T Extremities: Other (bilateral UE edema ) Neurology: alert, oriented, follow commands Assessment Assessment 1. Acute on chronic respiratory failure; multifactorial with AE COPD, a/c CHF, anemia, and possible PNA. compensated 2. Acute on chronic probable diastolic CHF; Echo with LVEF 55-60% 3. NSTEMI; trop peak 2161. EKG without significant acute changes. Most probable type II, demand ischemia. CP free. Not on anticoagulation due to anemia. 4. PAFIB; presently SR. 5. Anemia; s/p transfusion. hgb stable. as per GI 6. PulmHTN; PAP 55 mmHG Recommendations Continue Cardizem for rate control Amiodarone added for rhythm maintenance No anticoagulation therapy due to anemia requiring transfusion. ASA for stroke prevention Outpatient ischemic evaluation Supportive care Follow up in our office as scheduled. Justicifation of Admission Dx: Justifications for Admission: Justification of Admission Dx: Yes GIOVANNA RODRIGUEZ APRN Feb 26, 2022 12:12
[2022-02-26] MEDS: MAG HYDROX/ALUMINUM HYD/SIMETH 30 ML ORAL.SUSP PO PRN (17:02)
[2022-02-26 19:00] VITALS: BP 142/74
[2022-02-26] MEDS: ALPRAZolam 0.5 MG TABLET PO PRN (22:56)
[2022-02-26 23:00] VITALS: BP 144/61
[2022-02-27 03:00] VITALS: BP 197/102
[2022-02-27 07:00] VITALS: BP 174/75
[2022-02-27] MEDS: BUDESONIDE 0.5 MG/2 ML NEBU. NEB SCH ×2 (07:10→20:35)
[2022-02-27] MEDS: IPRATRPIUM/ALBUTEROL 0.5/2.5MG 3 ML NEBU. NEB SCH ×4 (07:11→20:35)
[2022-02-27] MEDS: BUMETANIDE 1 MG TABLET. PO SCH (08:15)
[2022-02-27] MEDS: LACTOBACILLUS RHAMNOSUS GG 1 CAPSULE. PO SCH ×2 (08:16→21:29)
[2022-02-27] MEDS: LOSARTAN POTASSIUM 50 MG TABLET. PO SCH (08:16)
[2022-02-27] MEDS: predniSONE 20 MG TABLET PO SCH (08:17)
[2022-02-27] MEDS: AMIODARONE HCL 200 MG TABLET. PO SCH (08:17)
[2022-02-27] MEDS: PANTOPRAZOLE 40 MG TABLET.DR. PO SCH ×2 (08:17→17:14)
[2022-02-27] MEDS: POLYETHYLENE GLYCOL 3350 17 GM PACKET. PO SCH (08:17)
[2022-02-27] MEDS: DOCUSATE SODIUM 100 MG CAPSULE. PO SCH ×2 (08:17→21:29)
[2022-02-27] MEDS: POTASSIUM CHLORIDE 10 MEQ TABLET.ER. PO SCH ×2 (08:17→21:29)
[2022-02-27] MEDS: FERROUS SULFATE 325 MG TABLET. PO SCH ×3 (08:17→17:14)
[2022-02-27] MEDS: ASPIRIN ENTERIC COATED 81 MG TABLET.DR. PO SCH (08:17)
[2022-02-27] MEDS: CITALOPRAM 20 MG TABLET. PO SCH (08:17)
[2022-02-27] MEDS: cefTRIAXone IV Push 1 GM VIAL. IVP SCH (08:18)
--- NOTE | 2022-02-27 09:46 | PDOC ---
PULMONARY PROGRESS NOTES DATE: 02/27/22 TIME: 09:46 Subjective Patient still feels short of breath with exertion but improved since admission. Remains on 3 L which is her baseline. Vitals Vital Signs Date Time Temp Pulse Resp B/P (MAP) Pulse Ox O2 Delivery O2 Flow Rate FiO2 02/27/22 08:17 74 174/75 02/27/22 08:00 Nasal Cannula 3.0 02/27/22 07:13 97 02/27/22 07:00 98.1 22 98.1 General: Alert, No acute distress Lungs: Other (Decreased breath sounds at the bases.) Cardiovascular: S1 Abdomen: Soft Neuro Exam: Alert Extremities: No Edema Skin: Warm Labs Laboratory Tests Test 02/26/22 07:45 White Blood Count 11.3 x10^3/uL (4.0-11.0) Red Blood Count 3.87 x10^6/uL (3.50-5.40) Hemoglobin 8.5 g/dL (12.0-15.5) Hematocrit 28.0 % (36.0-47.0) Mean Corpuscular Volume 72 fL (79-100) Mean Corpuscular Hemoglobin 22 pg (25-35) Mean Corpuscular Hemoglobin Concent 31 g/dL (31-37) Red Cell Distribution Width 20.4 % (11.5-14.5) Platelet Count 485 x10^3/uL (140-400) Sodium Level 134 mmol/L (136-145) Potassium Level 4.5 mmol/L (3.5-5.1) Chloride Level 94 mmol/L (98-107) Carbon Dioxide Level 38 mmol/L (21-32) Anion Gap 2 (6-14) Blood Urea Nitrogen 17 mg/dL (7-20) Creatinine 0.9 mg/dL (0.6-1.0) Estimated GFR (Cockcroft-Gault) 59.7 Glucose Level 81 mg/dL (70-99) Calcium Level 8.8 mg/dL (8.5-10.1) Medications Active Scripts Medications Dose Route/Sig Max Daily Dose Days Date Category Prednisone 20 Mg Tablet 1 Tab PO DAILY 02/20/22 Reported Iron (Ferrous Gluconate) 240 Mg Tablet 1 Tab PO DAILY 30 02/20/22 Reported Omeprazole 40 Mg Capsule.dr 40 Mg PO DAILY 02/20/22 Reported Klor-Con 10 (Potassium Chloride) 10 Meq Tablet.er 10 Meq PO BID 02/20/22 Reported Milk Of Magnesia (Magnesium Hydroxide) 400 Mg/5 Ml Oral.susp 400 Mg PO BID PRN 02/20/22 Reported Dulcolax (Bisacodyl) 10 Mg Supp.rect 1 Supp RC DAILY 02/20/22 Reported Losartan Potassium 50 Mg Tablet 50 Mg PO DAILY 02/20/22 Reported Docusate Sodium 100 Mg Capsule 100 Mg PO BID 02/20/22 Reported Celexa (Citalopram Hydrobromide) 20 Mg Tablet 1 Tab PO DAILY 02/20/22 Reported Cardizem La (Diltiazem Hcl) 120 Mg Tab.er.24h 120 Mg PO DAILY 02/20/22 Reported Bumetanide 1 Mg Tablet 0.5 Tab PO DAILY 02/20/22 Reported Budesonide 0.5 Mg/2 Ml Ampul.neb 1 Vial NEB BID PRN 12/05/14 Reported Alprazolam 0.5 Mg Tablet 1 Tab PO BID PRN 12/05/14 Reported Impression . 1. Dyspnea secondary to multifactorial etiologies including underlying chronic obstructive pulmonary disease with chronic hypoxic respiratory failure, A/C Diastolic HF, and anemia. Clinically, less likely pneumonia. 2. Non-ST segment myocardial infarction. 3. Secondary pulmonary hypertension. 4. Atrial fibrillation ,now with controlled rate. 5. Acute on Chronic diastolic congestive heart failure. 6. Oropharyngeal dysphagia. Plan . 1. Continue present oxygen, which is her baseline. She will probably need 4 to 5 L of oxygen with exertion. Will order 6-minute walk test today. 2. CT chest reviewed. Most consistent with mild CHF. There is mild to moderate left pleural effusion and trace fluid in the fissure on the right side. There is compressive atelectasis. Status post extra doses of Lasix for last 2 days. 3. Continue empiric antibiotics. 4. Follow Cardiology recommendations for management of atrial fibrillation. 5. bronchodilators. 6. Continue diuresis. Discussed with the patient and her daughter. Discussed with Dr. Smith as well. John with discharge to skilled care. ARABELLA RUSHING MD Feb 27, 2022 09:46
[2022-02-27 11:00] VITALS: BP 163/72
[2022-02-27] MEDS: FUROSEMIDE 40 MG/4 ML VIAL. IVP SCH (11:30)
--- NOTE | 2022-02-27 12:48 | PDOC ---
CARDIOLOGY PROGRESS NOTE SUBJECTIVE: No new Cv events overnight. denies any chest pain but reports breathing is labored. No syncope or palpitations. Family at bedside. OBJECTIVE: Vital Signs/I&O: Vital Signs Date Time Temp Pulse Resp B/P (MAP) Pulse Ox O2 Delivery O2 Flow Rate FiO2 02/27/22 11:47 98 Nasal Cannula 3.0 02/27/22 11:00 97.7 63 17 163/72 (102) 97.7 I & O 02/26/22 02/26/22 02/27/22 15:00 23:00 07:00 Intake Total 300 ml Output Total 600 ml 650 ml Balance 300 ml -600 ml -650 ml Objective: GEN.: Mild distress. Thin and frail HEENT: Head is normocephalic, atraumatic NECK: Supple. LUNGS: Decreased breath sounds bilaterally HEART: RRR, S1, S2 present. Peripheral pulses intact ABDOMEN: Soft, nontender. Positive bowel sounds. EXTREMITIES: Without any cyanosis.1+ edema , upper ext > LE NEUROLOGIC: Normal speech, normal tone PSYCHIATRIC: Normal affect, normal mood. SKIN: No ulcerations CURRENT MEDICATIONS: Current Medications Medications (Trade) Dose Ordered Sig/Eloina Route PRN Reason Start Time Stop Time Status Last Admin Dose Admin Furosemide (Lasix) 40 mg DAILY IVP 02/27/22 11:15 02/28/22 09:01 02/27/22 11:30 DIAGNOSTIC TESTING: Labs reviewed ASSESSMENT: 1. Acute on chronic diastolic HF 2. HTN 3. Dyslipidemia 4. COPD with resp failure PLAN: 1. Continue present medical therapy. Echo reveals normal LV function. Continue diuresis. Main issue appears to be pulmonary. Supportive care. Thanks Justicifation of Admission Dx: Justifications for Admission: Justification of Admission Dx: Yes FELECIA WINN MD Feb 27, 2022 12:48
[2022-02-27 14:17] VITALS: BP 171/71
[2022-02-27 19:24] VITALS: BP 162/73
[2022-02-27] MEDS: ALPRAZolam 0.5 MG TABLET PO PRN (21:29)
[2022-02-27 22:00] VITALS: BP 188/83
[2022-02-28] VITALS (7 sets, daily range): BP systolic 127–175; BP diastolic 59–76
[2022-02-28 05:05] LABS: CALCIUM 8.8 mg/dL (8.5-10.1); GFR 52.8; POTASSIUM 4.7 mmol/L (3.5-5.1)
[2022-02-28] MEDS: IPRATRPIUM/ALBUTEROL 0.5/2.5MG 3 ML NEBU. NEB SCH ×4 (07:33→20:19)
[2022-02-28] MEDS: BUDESONIDE 0.5 MG/2 ML NEBU. NEB SCH ×2 (07:33→20:19)
[2022-02-28] MEDS: DOCUSATE SODIUM 100 MG CAPSULE. PO SCH ×2 (08:37→21:59)
[2022-02-28] MEDS: FUROSEMIDE 40 MG/4 ML VIAL. IVP SCH (08:37)
[2022-02-28] MEDS: POTASSIUM CHLORIDE 10 MEQ TABLET.ER. PO SCH ×2 (08:38→22:00)
[2022-02-28] MEDS: ASPIRIN ENTERIC COATED 81 MG TABLET.DR. PO SCH (08:38)
[2022-02-28] MEDS: BUMETANIDE 1 MG TABLET. PO SCH (08:38)
[2022-02-28] MEDS: CITALOPRAM 20 MG TABLET. PO SCH (08:38)
[2022-02-28] MEDS: LACTOBACILLUS RHAMNOSUS GG 1 CAPSULE. PO SCH ×2 (08:38→21:59)
[2022-02-28] MEDS: predniSONE 20 MG TABLET PO SCH (08:38)
[2022-02-28] MEDS: AMIODARONE HCL 200 MG TABLET. PO SCH (08:39)
[2022-02-28] MEDS: LOSARTAN POTASSIUM 50 MG TABLET. PO SCH (08:39)
[2022-02-28] MEDS: FERROUS SULFATE 325 MG TABLET. PO SCH ×3 (08:39→16:33)
[2022-02-28] MEDS: PANTOPRAZOLE 40 MG TABLET.DR. PO SCH ×2 (08:39→16:33)
[2022-02-28] MEDS: POLYETHYLENE GLYCOL 3350 17 GM PACKET. PO SCH (09:00)
[2022-02-28] MEDS ORDERED: FUROSEMIDE 40 MG/4 ML VIAL. IVP SCH (09:00)
--- NOTE | 2022-02-28 11:19 | PN ---
DATE: 02/28/2022 SUBJECTIVE: The patient is resting, slightly propped up in bed, in no apparent respiratory distress. She is pleasantly confused, but denied any complaint, in particular, denied any chest pain, shortness of breath, cough, phlegm or hemoptysis. PHYSICAL EXAMINATION: GENERAL: When I examined her, she was pale, but not jaundiced or cyanosed. No lymphadenopathy, no thyromegaly. No jugular venous distention. No limb edema. VITAL SIGNS: Her heart rate was 100, blood pressure was 175/76, temperature was 97.6, respiratory rate was 20 and oxygen saturation was 96% on 3 liters of oxygen. HEAD, EYES, EARS, NOSE, AND THROAT: Normocephalic, atraumatic. NECK: Supple. HEART: Normal first and second heart sounds. No gallop or murmur. CHEST: Shows central trachea, equally reduced expansion, reduced air entry, vesicular breath sounds. I could not appreciate any crepitation or rhonchi anteriorly. ABDOMEN: Distended, soft, nontender. NEUROLOGIC: She is demented, but without any obvious lateralizing sign. Her intake was 300, output was 1250. LABORATORY DATA: As of this morning, her serum sodium was 133, potassium 4.7, chloride 95, bicarbonate 37, anion gap of 1, BUN 26, creatinine 1, estimated GFR was 52 mL per minute. Her glucose was 84 and calcium was 8.8. ASSESSMENT: 1. Acute on chronic hypoxic respiratory failure. The patient's oxygen requirement has increased to [address] scan showed that she has pleural effusion and total collapse of the left lower lobe with possible evidence of fluid overload, for which she is now on IV Lasix at 40 mg daily. 2. Chronic obstructive pulmonary disease. 3. Atrial fibrillation with rapid ventricular response, rate controlled, not anticoagulated. 4. Non-ST segment elevation myocardial infarction with normal EKG and normal left ventricular systolic function. The patient is chest pain free. 5. Chronic diastolic congestive heart failure, for which we did start her on IV Lasix. 6. Pulmonary hypertension. 7. Paroxysmal atrial fibrillation, rate controlled, not anticoagulated. 8. Oropharyngeal dysphagia. 9. Anemia with hemoglobin of 6.8, hematocrit 23, for which she received 1 unit of packed RBCs. She also received Venofer and her hemoglobin today is 9.3. PLAN: To continue with all her current medications. We will continue with physical and occupational therapy. She will be discharged to [facility] tomorrow. MAYNOR/ZENOBIA DR: Cami TID: [id number]
--- NOTE | 2022-02-28 20:41 | PDOC ---
Provider Note Date of Service: DATE: 02/28/22 TIME: 20:29 Provider Note S: No acute events. Reports feeling better. Physical Exam HEENT: Neck Supple W Full Motion Chest: Symmetric LUNGS: Other (diminished bases) Heart: RRR (SR with PVCs) Abdomen: Soft N/T Extremities: Other (bilateral UE edema ) Neurology: alert, oriented, follow commands Assessment Assessment 1. Acute on chronic respiratory failure; multifactorial with AE COPD, a/c CHF, anemia, and possible PNA. compensated 2. Acute on chronic probable diastolic CHF; Echo with LVEF 55-60% 3. NSTEMI; trop peak 2161. EKG without significant acute changes. Most probable type II, demand ischemia. CP free. Not on anticoagulation due to anemia. 4. PAFIB; presently SR. 5. Anemia; s/p transfusion. hgb stable. as per GI 6. PulmHTN; PAP 55 mmHG Recommendations Continue Cardizem for rate control Amiodarone added for rhythm maintenance No anticoagulation therapy due to anemia requiring transfusion. ASA for stroke prevention Outpatient ischemic evaluation Supportive care Follow up in our office as scheduled. Justifications for Admission Other Justification FELECIA WINN MD February 28, 2022 20:40
[2022-02-28] MEDS: ALPRAZolam 0.5 MG TABLET PO PRN (22:00)
[2022-03-01 02:42] VITALS: BP 159/76
[2022-03-01 05:13] LABS: CALCIUM 8.6 mg/dL (8.5-10.1); CREATININE 1.1 mg/dL (0.6-1.0); GFR 47.3; POTASSIUM 4.5 mmol/L (3.5-5.1)
[2022-03-01 07:00] VITALS: BP 144/73
[2022-03-01] MEDS: IPRATRPIUM/ALBUTEROL 0.5/2.5MG 3 ML NEBU. NEB SCH ×3 (07:26→15:27)
[2022-03-01] MEDS: BUDESONIDE 0.5 MG/2 ML NEBU. NEB SCH (07:26)
[2022-03-01] MEDS: LACTOBACILLUS RHAMNOSUS GG 1 CAPSULE. PO SCH ×2 (08:01→21:21)
[2022-03-01] MEDS: BUMETANIDE 1 MG TABLET. PO SCH (08:02)
[2022-03-01] MEDS: POTASSIUM CHLORIDE 10 MEQ TABLET.ER. PO SCH ×2 (08:02→21:20)
[2022-03-01] MEDS: LOSARTAN POTASSIUM 50 MG TABLET. PO SCH (08:03)
[2022-03-01] MEDS: CITALOPRAM 20 MG TABLET. PO SCH (08:03)
[2022-03-01] MEDS: DOCUSATE SODIUM 100 MG CAPSULE. PO SCH ×2 (08:03→21:20)
[2022-03-01] MEDS: PANTOPRAZOLE 40 MG TABLET.DR. PO SCH ×2 (08:03→16:38)
[2022-03-01] MEDS: predniSONE 20 MG TABLET PO SCH (08:03)
[2022-03-01] MEDS: ASPIRIN ENTERIC COATED 81 MG TABLET.DR. PO SCH (08:03)
[2022-03-01] MEDS: FERROUS SULFATE 325 MG TABLET. PO SCH ×3 (08:03→16:38)
[2022-03-01] MEDS: AMIODARONE HCL 200 MG TABLET. PO SCH (08:04)
--- NOTE | 2022-03-01 08:57 | PN ---
DATE: 02/27/2022 SUBJECTIVE: The patient is resting, slightly propped up in bed, in her recliner, in no apparent distress. On questioning her, she denied any complaint. Nursing staff did not voice any concern. Apparently, her daughter changed her mind yesterday and want to go to [facility] and will contact at [facility] today and they said they would not be able to take her until Tuesday. PHYSICAL EXAMINATION: GENERAL: When I examined her, she looked pale. No jaundice, cyanosis or thyromegaly. No jugular venous distention. No limb edema. VITAL SIGNS: Her heart rate was 74, blood pressure was 174/75, temperature was 98.1, respiratory rate was 22 and oxygen saturation was 97% on 3 liters of oxygen. HEAD, EYES, EARS, NOSE AND THROAT: Showed normocephalic, atraumatic. NECK: Supple. HEART: Showed normal first and second heart sounds. No gallop or murmur. CHEST: Shows central trachea, equally reduced chest expansion, reduced air entry, vesicular breath sounds. I could not really appreciate any crepitation or rhonchi. ABDOMEN: Distended, soft, nontender. NEUROLOGIC: She is demented without any obvious lateralizing sign. Her intake is 1000, output was 900. LABORATORY DATA: As of yesterday, her serum sodium 134, potassium 4.5, chloride 94, bicarbonate 38, anion gap of 2, BUN 17, creatinine was 0.9. Estimated GFR was 58 mL per minute. Her glucose was 81 and calcium was 8.8. Her white cell count was 11.3, hemoglobin 8.5, hematocrit 28, MCV 72 and platelet count of 485,000. ASSESSMENT: 1. Hahrt-ve-gbuvjhl hypoxic respiratory failure. The patient's oxygen requirement has increased to 4 liters, although today oxygen saturation was 95% on 3 liters of oxygen. Her CT scan showed that she has pleural effusion with a collapsed left lower lobe, possible evidence of fluid overload, which I started her again on Lasix 40 mg IV for today and tomorrow. 2. Chronic obstructive pulmonary disease. 3. Atrial fibrillation with rapid ventricular response, rate controlled. 4. Non-ST segment elevation myocardial infarction with normal EKG and normal left ventricular systolic function. 5. Chronic diastolic congestive heart failure, for which she was started on IV Lasix. 6. Pulmonary hypertension. 7. Paroxysmal atrial fibrillation, rate controlled, not anticoagulated. 8. Oropharyngeal dysphagia. 9. Anemia with hemoglobin of 6.8, hematocrit 23, for which she received 1 unit of packed RBCs. Her most recent hemoglobin was 8 and hematocrit 24. PLAN: To continue with amiodarone, diltiazem to control the ____ rate. I would discontinue . JENELLE/CANDY DR: Cami TID: [id number]
[2022-03-01] MEDS: POLYETHYLENE GLYCOL 3350 17 GM PACKET. PO SCH (09:00)
--- NOTE | 2022-03-01 10:03 | PDOC ---
TIFFANI SHAFER LARS 03/01/22 1003: CARDIO Progress Notes Date and Time Date of Service 03/01/22 Time of Evaluation 1000 Subjective Subjective: No Chest Pain, No shortness of breath, No Palpitations Vitals Vitals Vital Signs Date Time Temp Pulse Resp B/P (MAP) Pulse Ox O2 Delivery O2 Flow Rate FiO2 03/01/22 08:04 75 144/73 03/01/22 08:00 Nasal Cannula 3.0 03/01/22 07:26 97 03/01/22 07:00 97.5 18 97.5 Weight Weight [ ] Input and Output Intake and Output Intake and Output 03/01/22 07:00 Intake Total 520 ml Output Total 1100 ml Balance -580 ml Intake Oral 520 ml Output Urine Total 1100 ml # Voids 3 Laboratory Labs Laboratory Tests Test 03/01/22 03:10 Sodium Level 133 mmol/L (136-145) Potassium Level 4.5 mmol/L (3.5-5.1) Chloride Level 94 mmol/L (98-107) Carbon Dioxide Level 35 mmol/L (21-32) Anion Gap 4 (6-14) Blood Urea Nitrogen 26 mg/dL (7-20) Creatinine 1.1 mg/dL (0.6-1.0) Estimated GFR (Cockcroft-Gault) 47.3 Glucose Level 102 mg/dL (70-99) Calcium Level 8.6 mg/dL (8.5-10.1) Physical Exam HEENT: Neck Supple W Full Motion Chest: Symmetric LUNGS: Other (diminished bases) Heart: RRR (SR with PVCs) Abdomen: Soft N/T, Other (distended) Extremities: Other (no LE edema ) Neurology: alert, oriented, follow commands Assessment Assessment 1. Acute on chronic respiratory failure; multifactorial with AE COPD, a/c CHF, anemia, and possible PNA. s/p IV Lasix 2. Acute on chronic probable diastolic CHF; Echo with LVEF 55-60% 3. NSTEMI; trop peak 2161. EKG without significant acute changes. Most probable type II, demand ischemia. CP free. Not on anticoagulation due to anemia. 4. PAFIB; presently SR. brief paroxysms of AFIB noted on tele 5. Anemia; s/p transfusion. hgb stable. as per GI 6. PulmHTN; PAP 55 mmHG Recommendations Continue Cardizem for rate control Amiodarone added for rhythm maintenance No anticoagulation therapy due to anemia requiring transfusion ASA therapy Oral Bumex Outpatient ischemic evaluation Supportive care Follow up in our office as scheduled. Justicifation of Admission Dx: Justifications for Admission: Justification of Admission Dx: Yes FELECIA WINN MD 03/02/22 0907: CARDIO Progress Notes Plan Plan Late entry for 03/01/2022 Patient seen and examined. Agree with above nurse practitioner note TIFFANI SHAFER APRN March 01, 2022 10:03 FELECIA WINN MD March 02, 2022 09:07
[2022-03-01 10:22] VITALS: BP 134/67
--- NOTE | 2022-03-01 10:23 | PDOC ---
PULMONARY PROGRESS NOTES DATE: 03/01/22 TIME: 10:23 Subjective Patient still feels short of breath with exertion but improved since admission. Remains on 3 L which is her baseline. Vitals Vital Signs Date Time Temp Pulse Resp B/P (MAP) Pulse Ox O2 Delivery O2 Flow Rate FiO2 03/01/22 08:04 75 144/73 03/01/22 08:00 Nasal Cannula 3.0 03/01/22 07:26 97 03/01/22 07:00 97.5 18 97.5 General: Alert, No acute distress Lungs: Other (Decreased breath sounds at the bases.) Cardiovascular: S1 Abdomen: Soft Neuro Exam: Alert Extremities: No Edema Skin: Warm Labs Laboratory Tests Test 02/28/22 04:00 03/01/22 03:10 Hemoglobin 9.3 g/dL (12.0-15.5) Sodium Level 133 mmol/L (136-145) 133 mmol/L (136-145) Potassium Level 4.7 mmol/L (3.5-5.1) 4.5 mmol/L (3.5-5.1) Chloride Level 95 mmol/L (98-107) 94 mmol/L (98-107) Carbon Dioxide Level 37 mmol/L (21-32) 35 mmol/L (21-32) Anion Gap 1 (6-14) 4 (6-14) Blood Urea Nitrogen 26 mg/dL (7-20) 26 mg/dL (7-20) Creatinine 1.0 mg/dL (0.6-1.0) 1.1 mg/dL (0.6-1.0) Estimated GFR (Cockcroft-Gault) 52.8 47.3 Glucose Level 84 mg/dL (70-99) 102 mg/dL (70-99) Calcium Level 8.8 mg/dL (8.5-10.1) 8.6 mg/dL (8.5-10.1) Laboratory Tests Test 03/01/22 03:10 Sodium Level 133 mmol/L (136-145) Potassium Level 4.5 mmol/L (3.5-5.1) Chloride Level 94 mmol/L (98-107) Carbon Dioxide Level 35 mmol/L (21-32) Anion Gap 4 (6-14) Blood Urea Nitrogen 26 mg/dL (7-20) Creatinine 1.1 mg/dL (0.6-1.0) Estimated GFR (Cockcroft-Gault) 47.3 Glucose Level 102 mg/dL (70-99) Calcium Level 8.6 mg/dL (8.5-10.1) Medications Active Scripts Medications Dose Route/Sig Max Daily Dose Days Date Category Prednisone 20 Mg Tablet 1 Tab PO DAILY 02/20/22 Reported Iron (Ferrous Gluconate) 240 Mg Tablet 1 Tab PO DAILY 30 02/20/22 Reported Omeprazole 40 Mg Capsule.dr 40 Mg PO DAILY 02/20/22 Reported Klor-Con 10 (Potassium Chloride) 10 Meq Tablet.er 10 Meq PO BID 02/20/22 Reported Milk Of Magnesia (Magnesium Hydroxide) 400 Mg/5 Ml Oral.susp 400 Mg PO BID PRN 02/20/22 Reported Dulcolax (Bisacodyl) 10 Mg Supp.rect 1 Supp RC DAILY 02/20/22 Reported Losartan Potassium 50 Mg Tablet 50 Mg PO DAILY 02/20/22 Reported Docusate Sodium 100 Mg Capsule 100 Mg PO BID 02/20/22 Reported Celexa (Citalopram Hydrobromide) 20 Mg Tablet 1 Tab PO DAILY 02/20/22 Reported Cardizem La (Diltiazem Hcl) 120 Mg Tab.er.24h 120 Mg PO DAILY 02/20/22 Reported Bumetanide 1 Mg Tablet 0.5 Tab PO DAILY 02/20/22 Reported Budesonide 0.5 Mg/2 Ml Ampul.neb 1 Vial NEB BID PRN 12/05/14 Reported Alprazolam 0.5 Mg Tablet 1 Tab PO BID PRN 12/05/14 Reported Impression . 1. Dyspnea secondary to multifactorial etiologies including underlying chronic obstructive pulmonary disease with chronic hypoxic respiratory failure, A/C Diastolic HF, and anemia. Clinically, less likely pneumonia. 2. Non-ST segment myocardial infarction. 3. Secondary pulmonary hypertension. 4. Atrial fibrillation ,now with controlled rate. 5. Acute on Chronic diastolic congestive heart failure. 6. Oropharyngeal dysphagia. Plan . 1. Continue present oxygen, which is her baseline. She will probably need 4 to 5 L of oxygen with exertion. 2. CT chest reviewed. Most consistent with mild CHF. There is mild to moderate left pleural effusion and trace fluid in the fissure on the right side. There is compressive atelectasis. Status post extra doses of Lasix for last 2 days. 3. Continue empiric antibiotics. 4. Follow Cardiology recommendations for management of atrial fibrillation. 5. bronchodilators. 6. Continue diuresis. Discussed with the patient . Discussed with Dr. Smith as well. John with discharge to skilled care. ARABELLA RUSHING MD March 01, 2022 10:23
--- NOTE | 2022-03-01 11:57 | PDOC ---
Date of Service: DATE: 03/01/22 TIME: 11:55 Subjective: Subjective: Her stomach feels better than it did. Objective: Objective: D/w nurse - no GI concerns, stooling daily and tolerating diet. Possible DC tomorrow to [facility] after another COVID swab and therapy eval. Vital Signs: Vital Signs Date Time Temp Pulse Resp B/P (MAP) Pulse Ox O2 Delivery O2 Flow Rate FiO2 03/01/22 11:20 Nasal Cannula 3.0 03/01/22 10:22 97.6 72 18 134/67 (89) 97 97.6 Labs: Laboratory Tests Test 03/01/22 03:10 Sodium Level 133 mmol/L Potassium Level 4.5 mmol/L Chloride Level 94 mmol/L Carbon Dioxide Level 35 mmol/L Anion Gap 4 Blood Urea Nitrogen 26 mg/dL Creatinine 1.1 mg/dL Estimated GFR (Cockcroft-Gault) 47.3 Glucose Level 102 mg/dL Calcium Level 8.6 mg/dL PE: GEN: NAD, up in chair LUNGS: diminished, NC HEART: RRR ABD: S/ND/NT NEURO/PSYCH: A & O 3, forgetful A/P: DIMITRY - better GERD, constipation - controlled NSTEMI, A Fib, pneumonia -- Continue same GI-davidson. Awaiting DC. Justicifation of Admission Dx: Justifications for Admission: Justification of Admission Dx: Yes ZHANG GONZALES March 01, 2022 11:57
--- NOTE | 2022-03-01 14:46 | NUR ---
SS following up with discharge planning. SS reviewed pt chart nad discussed with pt RN. Pt is currently requiring oxygen at three liters nasal canula. COVID19 negative. PT/OT recommended half-way unit. Pt and pt's daughter declined half-way unit on 02/26/2022 and requested to discharge to home with [facility], ; fax [phone], pending six minute walk. SS met with Dr. Smith today and was notified that pt and daughter changed there mind and now wants to go to half-way unit. Pt had been accepted at [facility], ; fax [phone], last week but insurance authorization was cancelled when family was going home with home healthcare. [facility] agreeable to resubmit for insurance authorization pending new PT/OT notes. PT/OT ordered. SS will continue to follow for discharge planning.
[2022-03-01 14:49] VITALS: BP 158/68
[2022-03-01] MEDS ORDERED: FUROSEMIDE 20 MG/2 ML VIAL. IVP ONE (16:00)
[2022-03-01 19:40] VITALS: BP 148/70
[2022-03-01] MEDS: ALPRAZolam 0.5 MG TABLET PO PRN (21:20)
[2022-03-01 22:25] VITALS: BP 150/81
[2022-03-02 03:40] VITALS: BP 169/72
[2022-03-02 05:17] LABS: CALCIUM 8.6 mg/dL (8.5-10.1); GFR 52.8; POTASSIUM 4.2 mmol/L (3.5-5.1)
[2022-03-02] MEDS: PANTOPRAZOLE 40 MG TABLET.DR. PO SCH (06:40)
[2022-03-02 07:00] VITALS: BP 166/73
[2022-03-02] MEDS: IPRATRPIUM/ALBUTEROL 0.5/2.5MG 3 ML NEBU. NEB SCH ×2 (08:11→11:26)
[2022-03-02] MEDS: BUDESONIDE 0.5 MG/2 ML NEBU. NEB SCH (08:11)
[2022-03-02] MEDS: POTASSIUM CHLORIDE 10 MEQ TABLET.ER. PO SCH (08:13)
[2022-03-02] MEDS: DOCUSATE SODIUM 100 MG CAPSULE. PO SCH (08:13)
[2022-03-02] MEDS: BUMETANIDE 1 MG TABLET. PO SCH (08:13)
[2022-03-02] MEDS: ASPIRIN ENTERIC COATED 81 MG TABLET.DR. PO SCH (08:13)
[2022-03-02] MEDS: FERROUS SULFATE 325 MG TABLET. PO SCH (08:13)
[2022-03-02] MEDS: LACTOBACILLUS RHAMNOSUS GG 1 CAPSULE. PO SCH (08:14)
[2022-03-02] MEDS: LOSARTAN POTASSIUM 50 MG TABLET. PO SCH (08:15)
[2022-03-02] MEDS: AMIODARONE HCL 200 MG TABLET. PO SCH (08:15)
[2022-03-02] MEDS: CITALOPRAM 20 MG TABLET. PO SCH (08:15)
[2022-03-02] MEDS: predniSONE 20 MG TABLET PO SCH (08:15)
[2022-03-02] MEDS: POLYETHYLENE GLYCOL 3350 17 GM PACKET. PO SCH (08:15)
--- NOTE | 2022-03-02 09:05 | SNU/HH DC ---
DISCHARGE ORDERS DISCHARGE INFORMATION: DISCHARGE DATE: March 02, 2022 FINAL DIAGNOSIS acute ob chronic hypoxic respiratory failure acute on chronic diastolic chf DIMITRY Atrial fibrillation with RVR NSTEMI COPD CONDITION ON DISCHARGE: Stable CODE STATUS: Code Status: Full DETENTION: SNF STAY <30 DAYS: Yes POST DISCHARGE ORDERS: DIET AFTER DISCHARGE: Cardiac TREATMENT/EQUIPMENT ORDERS: RESPIRATORY EQUIPMENT NEEDED: Oxygen Physical Therapy For: Evalulation/Treatment Occupational Therapy For: Evaluation/Treatment DISCHARGE MEDICATIONS: Home Meds Active Scripts Amiodarone Hcl (AMIODARONE HCL) 200 Mg Tablet, 1 TAB PO DAILY for afib for 30 Days, #30 TAB 5 Refills Prov:AHMET PHAN MD 02/26/22 Mag Hydrox/Aluminum Hyd/Simeth (Mylanta Maximum Strength Liq) 355 Ml Oral.susp, 30 ML PO Q4H for gerd for 30 Days, #1 MISC 5 Refills Prov:AHMET PHAN MD 02/26/22 Pantoprazole Sodium (PROTONIX ) 40 Mg Tablet.dr, 40 MG PO BID for GERD for 30 Days, #60 TAB Prov:AHMET PHAN MD 02/26/22 Furosemide (LASIX) 20 Mg Tablet, 1 TAB PO DAILY for chf for 30 Days, #30 TAB 5 Refills Prov:AHMET PHAN MD 02/26/22 Reported Medications Prednisone (PREDNISONE) 20 Mg Tablet, 1 TAB PO DAILY for pulmonary hypertension, COPD, #5 TAB 02/20/22 Ferrous Gluconate (IRON) 240 Mg Tablet, 1 TAB PO DAILY for anemia for 30 Days, #30 TAB 0 Refills 02/20/22 Potassium Chloride (KLOR-CON 10) 10 Meq Tablet.er, 10 MEQ PO BID for hypokalemia, TAB 02/20/22 Magnesium Hydroxide (MILK OF MAGNESIA) 400 Mg/5 Ml Oral.susp, 400 MG PO BID PRN for CONSTIPATION, MISC 02/20/22 Bisacodyl (DULCOLAX) 10 Mg Supp.rect, 1 SUPP RC DAILY for constipation, SUPP 0 Refills 02/20/22 Losartan Potassium (LOSARTAN POTASSIUM) 50 Mg Tablet, 50 MG PO DAILY for HYPERTENSION, TAB 02/20/22 Docusate Sodium (DOCUSATE SODIUM) 100 Mg Capsule, 100 MG PO BID for constipation, CAP 0 Refills 02/20/22 Citalopram Hydrobromide (CELEXA) 20 Mg Tablet, 1 TAB PO DAILY for depression, #90 TAB 3 Refills 02/20/22 Diltiazem Hcl (CARDIZEM LA) 120 Mg Tab.er.24h, 120 MG PO DAILY for hypertension, #30 TAB 0 Refills 02/20/22 Budesonide (BUDESONIDE) 0.5 Mg/2 Ml Ampul.neb, 1 VIAL NEB BID PRN for SHORTNESS OF BREATH, #120 ML 3 Refills 12/05/14 Alprazolam (ALPRAZOLAM) 0.5 Mg Tablet, 1 TAB PO BID PRN for ANXIETY / AGITATION, #30 TAB 12/05/14 Discontinued Reported Medications Omeprazole (OMEPRAZOLE) 40 Mg Capsule.dr, 40 MG PO DAILY for Gerd, CAP 02/20/22 Bumetanide (BUMETANIDE) 1 Mg Tablet, 0.5 TAB PO DAILY for Edema, #90 TAB 1 Refill 02/20/22 AHMET PHAN MD March 02, 2022 09:05
--- NOTE | 2022-03-02 09:07 | PN ---
DATE: 03/01/2022 SUBJECTIVE: The patient is sitting, slightly propped up in bed, in her recliner in no apparent respiratory distress. On questioning her, denied any complaint and stated that she is feeling better. She actually walked with physical therapy for about 20 feet and went all the way to the bathroom. She was diuresed very well yesterday. PHYSICAL EXAMINATION: GENERAL: When I examined her, she was pale, but not jaundiced or cyanosed, no lymphadenopathy, no thyromegaly, no jugular venous distention. No lower limb edema. VITAL SIGNS: Her heart rate was 75, blood pressure was 144/73, temperature 97.5, respiratory rate was 18 and oxygen saturation was 97% on 3 liters of oxygen. HEAD, EYES, EARS, NOSE, AND THROAT: Normocephalic, atraumatic. NECK: Supple. HEART: Showed normal first and second heart sounds. No gallop or murmur. CHEST: Clear to auscultation, no crepitation or rhonchi. ABDOMEN: Distended, soft. NEUROLOGIC: She is demented without any obvious lateralizing sign. She is mostly bedbound and wheelchair bound. She is participating in physical therapy and did very well today. Her intake over the last 24 hours was 900, output was 600. LABORATORY DATA: As of this morning, her serum sodium 133, potassium 4.5, chloride 94, bicarbonate 35, anion gap of 4, BUN 26, creatinine 1.1. Estimated GFR was 47 mL per minute. Her glucose 102, calcium was 8.6. ASSESSMENT: 1. Fvagw-ps-ucgvdqu hypoxic respiratory failure. The patient's oxygen requirement has remained stable. She is now maintaining her oxygen saturation at 97% on 3 liters of oxygen. 2. Her CT scan showed that she has pleural effusion with collapsed left lower lobe, possible evidence of fluid overload, for which she was treated with IV Lasix at 40 mg once a day for 2 consecutive days, she did very well. 3. Chronic obstructive pulmonary disease. 4. Atrial fibrillation with rapid ventricular response, rate controlled, not anticoagulated. 5. Non-ST segment elevation myocardial infarction with normal EKG and normal left ventricular systolic function. 6. Chronic diastolic congestive heart failure for which she was started on IV Lasix. She is now on Lasix 20 mg daily. 7. Pulmonary hypertension. 8. Paroxysmal atrial fibrillation, rate controlled, not anticoagulated. 9. Oropharyngeal dysphagia. 10. Anemia with hemoglobin of 6.8, hematocrit 23, for which she received 1 unit of packed RBCs. Her most recent hemoglobin was 9.3. PLAN: To continue with amiodarone, diltiazem. We have discontinued her . Apparently, the patient and family have decided to go to [facility] and she will have COVID testing by PCR before she gets there and also we are awaiting the insurance authorization as she decided to go home with home health on Tuesday. MAYNOR/TIARA/CANDY DR: MAYNOR/valerie TID: [id number]
--- NOTE | 2022-03-02 09:40 | PDOC ---
TIFFANI SHAFER APPLIED BEHAVIOR SCIENCE SPECIALIST 03/02/22 0940: CARDIO Progress Notes Date and Time Date of Service 03/02/22 Time of Evaluation 1245 Subjective Subjective: No Chest Pain, No shortness of breath, No Palpitations Vitals Vitals Vital Signs Date Time Temp Pulse Resp B/P (MAP) Pulse Ox O2 Delivery O2 Flow Rate FiO2 03/02/22 08:15 60 169/72 03/02/22 08:14 100 Nasal Cannula 3.0 03/02/22 07:00 97.8 22 97.8 Weight Weight [ ] Input and Output Intake and Output Intake and Output 03/02/22 07:00 Intake Total 960 ml Output Total 1250 ml Balance -290 ml Intake Oral 960 ml Output Urine Total 1250 ml Laboratory Labs Laboratory Tests Test 03/02/22 03:30 03/02/22 03:35 Hemoglobin 8.6 g/dL (12.0-15.5) Sodium Level 134 mmol/L (136-145) Potassium Level 4.2 mmol/L (3.5-5.1) Chloride Level 94 mmol/L (98-107) Carbon Dioxide Level 35 mmol/L (21-32) Anion Gap 5 (6-14) Blood Urea Nitrogen 22 mg/dL (7-20) Creatinine 1.0 mg/dL (0.6-1.0) Estimated GFR (Cockcroft-Gault) 52.8 Glucose Level 80 mg/dL (70-99) Calcium Level 8.6 mg/dL (8.5-10.1) Physical Exam HEENT: Neck Supple W Full Motion Chest: Symmetric LUNGS: Other (diminished bases) Heart: RRR (SR with PVCs) Abdomen: Soft N/T Extremities: Other (no LE edema ) Neurology: alert, oriented, follow commands Assessment Assessment 1. Acute on chronic respiratory failure; multifactorial with AE COPD, a/c CHF, anemia, and possible PNA. s/p IV Lasix 2. Acute on chronic probable diastolic CHF; Echo with LVEF 55-60%. s/p IV Lasix 3. NSTEMI; trop peak 2161. EKG without significant acute changes. Most probable type II, demand ischemia. CP free. Not on anticoagulation due to anemia. 4. PAFIB; presently SR. brief paroxysms of AFIB noted on tele 5. Anemia; s/p transfusion. hgb stable. as per GI 6. PulmHTN; PAP 55 mmHG Recommendations Continue Cardizem for rate control Amiodarone added for rhythm maintenance No anticoagulation therapy due to anemia requiring transfusion ASA therapy Oral diuretic therapy Outpatient ischemic evaluation Supportive care Follow up in our office as scheduled. Justicifation of Admission Dx: Justifications for Admission: Justification of Admission Dx: Yes FELECIA WINN MD 03/02/22 1457: CARDIO Progress Notes Plan Plan The patient was seen and interviewed as well as examined at the bedside. The chart was reviewed. The case was discussed. Agree with the plan of care. TFIFANI SHAFER APRN March 02, 2022 09:40 FELECIA WINN MD March 02, 2022 14:57
--- NOTE | 2022-03-02 09:58 | PDOC ---
Date of Service: DATE: 03/02/22 TIME: 09:56 Subjective: Subjective: "Okay I guess. I don't know." Objective: Vital Signs: Vital Signs Date Time Temp Pulse Resp B/P (MAP) Pulse Ox O2 Delivery O2 Flow Rate FiO2 03/02/22 08:15 60 169/72 03/02/22 08:14 100 Nasal Cannula 3.0 03/02/22 07:00 97.8 22 97.8 Labs: Laboratory Tests Test 03/02/22 03:30 03/02/22 03:35 Hemoglobin 8.6 g/dL Sodium Level 134 mmol/L Potassium Level 4.2 mmol/L Chloride Level 94 mmol/L Carbon Dioxide Level 35 mmol/L Anion Gap 5 Blood Urea Nitrogen 22 mg/dL Creatinine 1.0 mg/dL Estimated GFR (Cockcroft-Gault) 52.8 Glucose Level 80 mg/dL Calcium Level 8.6 mg/dL PE: GEN: NAD LUNGS: diminished NC 3L HEART: RR ABD: NABS, S/ND/NT NEURO/PSYCH: A & O 3, forgetful A/P: DIMITRY - better H/o GERD, constipation - controlled NSTEMI, A Fib, pneumonia -- Dc per primary on iron and PPI. Justicifation of Admission Dx: Justifications for Admission: Justification of Admission Dx: Yes ZHANG GONZALES March 02, 2022 09:58
--- NOTE | 2022-03-02 10:47 | PDOC ---
PULMONARY PROGRESS NOTES DATE: 03/02/22 TIME: 10:47 Subjective Patient feels better, no more short of air Vitals Vital Signs Date Time Temp Pulse Resp B/P (MAP) Pulse Ox O2 Delivery O2 Flow Rate FiO2 03/02/22 08:15 60 169/72 03/02/22 08:14 100 Nasal Cannula 3.0 03/02/22 07:00 97.8 22 97.8 General: Alert, No acute distress Lungs: Other (Decreased breath sounds at the bases.) Cardiovascular: S1 Abdomen: Soft Neuro Exam: Alert Extremities: No Edema Skin: Warm Labs Laboratory Tests Test 03/01/22 03:10 03/01/22 09:05 03/02/22 03:30 03/02/22 03:35 Sodium Level 133 mmol/L (136-145) 134 mmol/L (136-145) Potassium Level 4.5 mmol/L (3.5-5.1) 4.2 mmol/L (3.5-5.1) Chloride Level 94 mmol/L (98-107) 94 mmol/L (98-107) Carbon Dioxide Level 35 mmol/L (21-32) 35 mmol/L (21-32) Anion Gap 4 (6-14) 5 (6-14) Blood Urea Nitrogen 26 mg/dL (7-20) 22 mg/dL (7-20) Creatinine 1.1 mg/dL (0.6-1.0) 1.0 mg/dL (0.6-1.0) Estimated GFR (Cockcroft-Gault) 47.3 52.8 Glucose Level 102 mg/dL (70-99) 80 mg/dL (70-99) Calcium Level 8.6 mg/dL (8.5-10.1) 8.6 mg/dL (8.5-10.1) Coronavirus (COVID-19)(PCR) Not detected (NOT DETECTD) Hemoglobin 8.6 g/dL (12.0-15.5) Laboratory Tests Test 03/02/22 03:30 03/02/22 03:35 Hemoglobin 8.6 g/dL (12.0-15.5) Sodium Level 134 mmol/L (136-145) Potassium Level 4.2 mmol/L (3.5-5.1) Chloride Level 94 mmol/L (98-107) Carbon Dioxide Level 35 mmol/L (21-32) Anion Gap 5 (6-14) Blood Urea Nitrogen 22 mg/dL (7-20) Creatinine 1.0 mg/dL (0.6-1.0) Estimated GFR (Cockcroft-Gault) 52.8 Glucose Level 80 mg/dL (70-99) Calcium Level 8.6 mg/dL (8.5-10.1) Medications Active Scripts Medications Dose Route/Sig Max Daily Dose Days Date Category Prednisone 20 Mg Tablet 1 Tab PO DAILY 02/20/22 Reported Iron (Ferrous Gluconate) 240 Mg Tablet 1 Tab PO DAILY 30 02/20/22 Reported Omeprazole 40 Mg Capsule.dr 40 Mg PO DAILY 02/20/22 Reported Klor-Con 10 (Potassium Chloride) 10 Meq Tablet.er 10 Meq PO BID 02/20/22 Reported Milk Of Magnesia (Magnesium Hydroxide) 400 Mg/5 Ml Oral.susp 400 Mg PO BID PRN 02/20/22 Reported Dulcolax (Bisacodyl) 10 Mg Supp.rect 1 Supp RC DAILY 02/20/22 Reported Losartan Potassium 50 Mg Tablet 50 Mg PO DAILY 02/20/22 Reported Docusate Sodium 100 Mg Capsule 100 Mg PO BID 02/20/22 Reported Celexa (Citalopram Hydrobromide) 20 Mg Tablet 1 Tab PO DAILY 02/20/22 Reported Cardizem La (Diltiazem Hcl) 120 Mg Tab.er.24h 120 Mg PO DAILY 02/20/22 Reported Bumetanide 1 Mg Tablet 0.5 Tab PO DAILY 02/20/22 Reported Budesonide 0.5 Mg/2 Ml Ampul.neb 1 Vial NEB BID PRN 12/05/14 Reported Alprazolam 0.5 Mg Tablet 1 Tab PO BID PRN 12/05/14 Reported Impression . 1. Dyspnea secondary to multifactorial etiologies including underlying chronic obstructive pulmonary disease with chronic hypoxic respiratory failure, A/C Diastolic HF, and anemia. Clinically, less likely pneumonia. 2. Non-ST segment myocardial infarction. 3. Secondary pulmonary hypertension. 4. Atrial fibrillation ,now with controlled rate. 5. Acute on Chronic diastolic congestive heart failure. 6. Oropharyngeal dysphagia. Plan . Updated 03/01 Continue oxygen supplementation Optimizing treatment for CHF Okay for transfer 1. Continue present oxygen, which is her baseline. She will probably need 4 to 5 L of oxygen with exertion. 2. CT chest reviewed. Most consistent with mild CHF. There is mild to moderate left pleural effusion and trace fluid in the fissure on the right side. There is compressive atelectasis. Status post extra doses of Lasix for last 2 days. 3. Continue empiric antibiotics. 4. Follow Cardiology recommendations for management of atrial fibrillation. 5. bronchodilators. 6. Continue diuresis. Discussed with the patient . Discussed with Dr. Smith as well. Okay with discharge to skilled care. GEO SHOOK MD March 02, 2022 10:47
[2022-03-02 10:54] VITALS: BP 135/65
--- NOTE | 2022-03-02 11:20 | NUR ---
SS following up with discharge planning. SS reviewed pt chart and discussed with pt RN. Pt is currently requiring oxygen at three liters nasal canula. COVID19 negative. PT/OT recommended long term unit. Pt accepted at [facility], ; fax [phone], and insurance authorization received. Discharge orders sent to [facility]. Pt will discharge today after Video Swallow at 1300 and go to [facility] between 1500 and 1530 via [facility]. Pt and pt's RN notified.
[2022-03-02] MEDS ORDERED: BARIUM SULFATE 40% (APPLE) 148 GM PWD. PO ONE (12:30)
--- NOTE | 2022-03-02 14:02 | RAD ---
EXAMINATION: DG VIDEO SWALLOW STUDY 03/02/2022 1:13 PM HISTORY: Possible silent aspiration. COMPARISON: None. TECHNIQUE: The patient was observed swallowing various consistencies of barium under intermittent flu oroscopy. FINDINGS: There was at least deep penetration with thin barium on multiple trials. No improvement with chin tuc k. There was intermittent penetration with nectar thick consistencies. This improved when the patient took small sips but occurred when the patient is tilted larger sips. No penetration with nectar thic k, honey thick, or semisolids. Mild residuals with multiple consistencies. Total fluoroscopic time:2.8 minutes. Dose:5.30 mGy. IMPRESSION: At least deep penetration with thin barium and intermittent penetration with nectar thick consistencies. Please see the speech pathologist's report for details. Electronically signed by: Hortencia Fatima MD (03/02/2022 2:00 PM) [id number]
[2022-03-02 15:00] VITALS: BP 131/71
== END 2022-03-02 15:00 | DRG 177 ==
LOC: 6 SOUTH 20:25
PROVIDERS: ADMIT Internal Medicine; ATTEND Internal Medicine
DX: J15.6 Pneumonia due to other Gram-negative bacteria (principal); I21.4 Non-ST elevation (NSTEMI) myocardial infarction; J96.21 Acute and chronic respiratory failure with hypoxia; I50.33 Acute on chronic diastolic (congestive) heart failure; J44.0 Chronic obstructive pulmonary disease with (acute) lower respiratory infection; J98.19 Other pulmonary collapse; Z20.822 Contact with and (suspected) exposure to COVID-19; J15.9 Unspecified bacterial pneumonia; D50.0 Iron deficiency anemia secondary to blood loss (chronic); E78.5 Hyperlipidemia, unspecified; F17.200 Nicotine dependence, unspecified, uncomplicated; I11.0 Hypertensive heart disease with heart failure; I27.29 Other secondary pulmonary hypertension; F41.9 Anxiety disorder, unspecified; I48.0 Paroxysmal atrial fibrillation; K21.9 Gastro-esophageal reflux disease without esophagitis; K59.00 Constipation, unspecified; R13.12 Dysphagia, oropharyngeal phase; Z79.899 Other long term (current) drug therapy; Z85.3 Personal history of malignant neoplasm of breast; Z99.81 Dependence on supplemental oxygen
CPT/HCPCS: 36415; 71250; 74230; 80048; 80053; 80061; 82274; 82728; 83540; 83550; 83880; 84443; 84484; 85018; 85025; 85027; 93005; 93306; 94618; 94640; 94760; J0696; J1160; J1756; J1940; J3490; J7050; J7512; U0003; 92526-GN; 92610-GN; 92611-GN; 97530-GO; 97530-GP; 97535-GO; C8929; G0378; J7030; J7626

== ENCOUNTER → 2022-03-09 | Outpatient (CLI) | payer MEDICARE ==
[2022-03-02 15:00] VITALS: BP 131/71
[~2022-03-09] MED LIST changes: +AMIO200T53 PO; +BISA10SU55 RC; +BUME1TAB3 PO; +CITA20TA9 PO; +DILT120T PO; +DOCU100C28 PO; +FERR240T11 PO; +FURO-69 PO; +LOSA-73 PO; +MAG-115 PO; +MAGN400O7 PO; +OMEP40CA7 PO; +PANT40TA77 PO; +POTA10TA12 PO; +PRED20TA PO
--- NOTE | 2022-03-09 12:23 | RAD ---
EXAM: Chest, single view. HISTORY: Small bowel obstruction. COMPARISON: 02/19/2022 FINDINGS: A frontal view of the chest is obtained. There are small left greater than right pleural ef fusions. There is left lower lobe infiltrate. There is emphysema. There aren't chronic appearing inte rstitial changes within both lungs. There is cardiomegaly. There is no pneumothorax. IMPRESSION: 1. Stable small left greater than right pleural effusions and suspected left lower lobe infiltrate. 2. Emphysema and chronic interstitial changes. Note is made that small nodular opacities within the r ight lung demonstrated on the CT dated 02/23/2022 are not well seen radiographically. Please refer to the CT report for follow-up recommendations. Electronically signed by: Marcella Juarez MD (03/09/2022 9:30 AM) [id number]
== END ==
PROVIDERS: ATTEND Family Medicine
DX: J90 Pleural effusion, not elsewhere classified (principal); J43.9 Emphysema, unspecified
CPT/HCPCS: 71045